=== PATIENT | female | born 1955 | race Caucasian/White ===

== ENCOUNTER 2020-03-20 16:14 | Outpatient (REF) | payer OTHER, SELFPAY ==
[2020-03-20 18:24] LABS: MANUAL DIFF FLAG NO
[2020-03-20 18:26] LABS: Basophils Percent Auto 0.5 % (0-2); Eosinophils Absolute Auto 0.2 X10*3/uL (0.0-0.4); Eosinophils Percent Auto 2.5 % (0-4); Hematocrit 38.8 % (37-47); Hemoglobin 13.1 g/dl (12.0-16.0); Imm Gran Abs Auto 0.01 X10*3/uL (0.00-0.03); Imm Gran Pct Auto 0.2 % (0.0-0.4); Lymphocytes Percent Auto 48.5 % (20-40); Mean Corpuscular HGB Conc 33.8 g/dl (31.0-35.0); Mean Corpuscular Hemoglobin 29.2 pg (27.0-33.0); Mean Corpuscular Volume 86.4 fL (80-98); Mean Platelet Volume 11.2 fL (9.4-12.3); Monocytes Absolute Auto 0.6 X10*3/uL (0.1-1.2); Monocytes Percent Auto 9.3 % (2-11); Neutrophils Absolute Auto 2.4 X10*3/uL (2.0-8.3); Platelet Count 233 X10*3/uL (160-400); Red Blood Count 4.49 X10*6/uL (4.20-5.50); Red Cell Distribution Width 12.6 % (11.0-16.0); White Blood Count 6.1 X10*3/uL (4.8-10.8)
[2020-03-20 18:53] LABS: C Reactive Protein 0.09 mg/dL (< or = 0.50)
[2020-03-20 19:29] LABS: Erythrocyte Sedimentation Rate 22 MM/HR (0-20)
[2020-03-20 19:33] LABS: Alanine Aminotransferase 20 U/L (0-31); Albumin Level 4.5 g/dL (3.5-5.0); Alkaline Phosphatase 73 U/L (39-117); Anion Gap 14 (12-20); Aspartate Amino Transferase 23 U/L (5-31); Bilirubin Total 0.4 mg/dL (0.0-1.0); Blood Urea Nitrogen 11 mg/dL (9-16); Carbon Dioxide 26 mmol/L (22-29); Chloride 102 mmol/L (96-108); Estimated Glomerular Filt Rate > 60; Glucose Random 84 mg/dL (60-115); Potassium 3.7 mmol/l (3.3-5.1); Sodium 138 mmol/L (135-145); Total Protein 8.2 g/dL (6.5-8.0)
== END 2020-03-20 16:15 | disposition home or self-care (01) ==
LOC: HO.LAB 16:14
PROVIDERS: Referring Provider Internal Medicine; Visit Provider Student in an Organized Health Care Education/Training Program
DX: M05.9 Rheumatoid arthritis with rheumatoid factor, unspecified (principal); M47.22 Other spondylosis with radiculopathy, cervical region; K31.89 Other diseases of stomach and duodenum; Z79.899 Other long term (current) drug therapy
CPT/HCPCS: 36415; 80053; 85025; 85652; 86140; 99212

== ENCOUNTER 2020-04-07 18:44 | Outpatient (REF) | payer OTHER, SELFPAY ==
--- NOTE | 2020-04-07 18:47 | MR_ITS ---
EXAMINATION: MRI CERVICAL SPINE WITHOUT CONTRAST CLINICAL INFORMATION: Rheumatoid arthritis. Right upper extremity pain. COMPARISON: Cervical spine MRI 05/08/2014. TECHNIQUE: Multiplanar MR imaging of the cervical spine was performed without contrast. FINDINGS: There is slight anterolisthesis of C7 on T1. There appears to be related to facet degenerative changes at this level. Alignment is otherwise normal. Vertebral heights are preserved. There are type I degenerative endplate changes at C5-C6. Bone marrow signal intensity is otherwise unremarkable. There is loss of intervertebral disc height and T2 signal intensity at multiple levels related to disc degeneration. There is no cord compression or abnormal intramedullary signal changes. The cervicomedullary junction is normal. Limited visualization of intracranial compartment reveals no abnormal finding. Occipital condyles and lateral C1 masses are intact. There is degenerative arthrosis of the atlantodental joint. C1-C2 articular facets are unremarkable. At C2-C3 the annular contour is normal. No canal or neuroforaminal compromise. At C3-C4 there is a slightly bulging disc. No canal stenosis. Asymmetric uncovertebral joint spurring and facet degenerative change causes moderate right neuroforaminal encroachment. At C4-C5 there is a slightly bulging disc. No canal stenosis. Uncovertebral joint spurring and facet degenerative change causes mild bilateral neuroforaminal encroachment. At C5-C6 there is a diffusely bulging disc causing flattening of the ventral thecal sac and buckling of ligamenta flava causing dorsolateral indentation of the thecal sac. Moderate canal stenosis. Uncovertebral joint spurring and facet degenerative change causes moderate right and mild left neuroforaminal encroachment. At C6-C7 is a slightly bulging disc. No canal stenosis. Minimal uncovertebral joint spurring. No neuroforaminal encroachment. At C7-T1 the annular contour is normal. Asymmetric degenerative arthrosis of the left facet joint. No canal stenosis. No neuroforaminal encroachment. Visualized soft tissues of the neck are normal. MR/MR cervical spine wo con IMPRESSION: There is multilevel degenerative spondylosis of the cervical spine. Moderate canal stenosis at C5-C6. Otherwise no canal compromise. No cord compression or abnormal intramedullary signal changes. There are varying degrees of neuroforaminal encroachment related to uncovertebral joint spurring and facet degenerative change as described above.
== END 2020-04-07 18:45 | disposition home or self-care (01) ==
LOC: HO.MRI 18:44
PROVIDERS: Visit Provider Student in an Organized Health Care Education/Training Program
DX: M05.9 Rheumatoid arthritis with rheumatoid factor, unspecified (principal)
CPT/HCPCS: 72141

== ENCOUNTER → 2020-09-18 15:47 | Outpatient (BNVA) | payer MEDICARE, MEDICAID, SELFPAY | PROVIDERS: Visit Provider Student in an Organized Health Care Education/Training Program | DX: M05.9 Rheumatoid arthritis with rheumatoid factor, unspecified (principal); M47.22 Other spondylosis with radiculopathy, cervical region | CPT/HCPCS: 99212 ==

== ENCOUNTER 2020-09-25 09:46 | Outpatient (REF) | payer MEDICARE, MEDICAID, SELFPAY ==
[2020-09-25 12:29] LABS: MANUAL DIFF FLAG NO
[2020-09-25 12:35] LABS: Basophils Percent Auto 0.3 % (0-2); Eosinophils Absolute Auto 0.1 X10*3/uL (0.0-0.4); Eosinophils Percent Auto 2.3 % (0-4); Hematocrit 41.9 % (37-47); Hemoglobin 13.8 g/dl (12.0-16.0); Imm Gran Abs Auto 0.02 X10*3/uL (0.00-0.03); Imm Gran Pct Auto 0.3 % (0.0-0.4); Lymphocytes Absolute Auto 2.7 X10*3/uL (1.2-4.9); Lymphocytes Percent Auto 44.2 % (20-40); Mean Corpuscular HGB Conc 32.9 g/dl (31.0-35.0); Mean Corpuscular Hemoglobin 28.6 pg (27.0-33.0); Mean Corpuscular Volume 86.9 fL (80-98); Mean Platelet Volume 11.4 fL (9.4-12.3); Monocytes Absolute Auto 0.5 X10*3/uL (0.1-1.2); Monocytes Percent Auto 8.3 % (2-11); Neutrophils Absolute Auto 2.8 X10*3/uL (2.0-8.3); Neutrophils Percent Auto 44.6 % (45-73); Platelet Count 248 X10*3/uL (160-400); Red Blood Count 4.82 X10*6/uL (4.20-5.50); Red Cell Distribution Width 12.7 % (11.0-16.0); White Blood Count 6.2 X10*3/uL (4.8-10.8)
[2020-09-25 12:56] LABS: Alanine Aminotransferase 22 U/L (0-31); Albumin Level 4.3 g/dL (3.5-5.0); Alkaline Phosphatase 77 U/L (39-117); Anion Gap 15 (12-20); Aspartate Amino Transferase 21 U/L (5-31); Bilirubin Total 0.6 mg/dL (0.0-1.0); Blood Urea Nitrogen 18 mg/dL (9-16); C Reactive Protein 0.18 mg/dL (< or = 0.50); Calcium 9.8 mg/dL (8.4-10.2); Carbon Dioxide 24 mmol/L (22-29); Chloride 106 mmol/L (96-108); Estimated Glomerular Filt Rate > 60; Glucose Random 88 mg/dL (60-115); Potassium 3.9 mmol/L (3.3-5.1); Sodium 141 mmol/L (135-145); Total Protein 8.1 g/dL (6.5-8.0)
[2020-09-25 13:53] LABS: Erythrocyte Sedimentation Rate 31 MM/HR (0-20)
[2020-09-26 04:28] LABS: HBc Num1 0.07 S/CO (0.00-0.79); HBsAGNum1 0.21 S/CO (0.00-0.99); Hepatitis B Core Antibody Nonreactive (Nonreactive); Hepatitis B Surface Antigen Negative (Negative); ~Hepatitis B Surface Antibody REACTIVE (Nonreactive)
[2020-09-26 04:38] LABS: Hepatitis A Antibody IgM 0.52 Index (0-0.79); ~HepC Num1 0.12 S/CO (0.00-0.79); ~Hepatitis A Antibody IgM Nonreactive (Nonreactive); ~Hepatitis C Antibody Nonreactive (Nonreactive)
[2020-09-27 21:12] LABS: TS Negative Control Passed; TS Panel A 1; TS Panel B 3; TS Positive Control Passed; TSpotTB Negative (SeeBelow)
== END 2020-09-25 09:47 | disposition home or self-care (01) ==
LOC: HO.LAB 09:46
PROVIDERS: Visit Provider Student in an Organized Health Care Education/Training Program
DX: M05.9 Rheumatoid arthritis with rheumatoid factor, unspecified (principal)
CPT/HCPCS: 36415; 80053; 85025; 85652; 86140; 86481; 86704; 86706; 86709; 86803; 87340

== ENCOUNTER 2020-10-13 08:00 | Outpatient (RCR) | payer MEDICARE, MEDICAID, SELFPAY ==
--- NOTE | 2020-10-13 09:13 | MHC.OT.DC ---
[address] [phone] F: [phone] Occupational Therapy Discharge Note Provider: Yasmani Puri Diagnosis: Seropositive Rheumatoid Arthritis. Bilateral hand pain Date of Surgery: Date of Evaluation: 09/25/20 Date of Discharge: Treatments to Date: 6 Cancellations to Date: 0 No Shows to Date: 0 Discharge Status: Improved Function Independent with HEP Patient Elected to Stop Discharge Summary: Pt seen for bilateral hand RA with left thumb CMC jt OA and MCP jt laxity and right ring finger tenosynovitis. Pt is indep in self mangement for jt protection techniques, hand strenthening and use of CMC orthosis and night trigger finger splint for sx management. 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 Pt requesting D/C due to starting PT this week for neck and right shoulder pain Electronically Signed By: Laura Brand OT CHT CLT Reviewed/agree with student documentation: N/A Therapist: Please Sign and return to therapist, thank you for your referral.
== END 2020-10-13 09:14 | disposition other institution (70) ==
LOC: HO.OT 08:00
PROVIDERS: Visit Provider Student in an Organized Health Care Education/Training Program
DX: M05.9 Rheumatoid arthritis with rheumatoid factor, unspecified (principal)
CPT/HCPCS: 29130; 97035; 97110; 97140; 97166; 97535; 97760

== ENCOUNTER → 2020-10-21 08:03 | Outpatient (BNVA) | payer MEDICARE, MEDICAID, SELFPAY | PROVIDERS: Visit Provider Nurse Practitioner Family | DX: M47.812 Spondylosis without myelopathy or radiculopathy, cervical region (principal) | CPT/HCPCS: 99202 ==

== ENCOUNTER 2020-11-19 07:00 | Outpatient (RCR) | payer MEDICARE, MEDICAID, SELFPAY ==
--- NOTE | 2020-10-15 09:38 | MHC.PT.EP ---
[facility] [place] Office [place] Office [place] Office [address] Kaitlin Solomon [address] [phone] F: [phone] F: [phone] F: [phone] F: [phone] Physical Therapy Plan of Care Date of Evaluation: Date of Surgery: NA Diagnosis: CERVICAL SPONDYLOSIS Assessment: Pt IS 65 YO F REFERRED TO PT FROM DR HUMPHREY WITH CERVICAL SPONDYLOSIS. Pt REPORTS NECK PAIN FOR MANY YEARS WITH PT IN THE PAST WITH SOME RELIEF. PRESENTS TO PT WITH FWD HEAD/ROUNDED SHLDERS POSTURE, LIMITED CERV ROM (WITH PAIN AT END RANGE) DECREASED UPPER BODY STRENGTH. OF NOTE, Pt REPORTS HAD AN EPISODE WHERE SHE WAS HOSPITALIZED LAST YEAR WITH SPONTANEOUS MEMORY LOSS (REPORTS MRI/CT BRAIN NEG FOR STROKE) WITH RETURN OF MEMORY (?). Pt REPORTS PAIN IN NECK GIVES HER SIMENTAL AND AT TIMES SHE FEELS LIKE HAS HARD TIME CONCENTRATING. Pt SHOULD BENEFIT FROM PT TO ASSIST WITH MM TIGHTNESS AND UPPER BODY WEAKNESS WHICH SHOULD POSITIVELY AFFECT PAIN LEVEL. Frequency and Duration: The patient will be seen 2X/WK X 4 WKS Short Term Goals: 1. INCREASED POSTURE AWARENESS AND AWARENESS NECK CARE 2. CENTRALIZE SXS (LESS PEC/SHLDER PAIN, LESS SIMENTAL Mapper Goals: 1. DECREASED PAIN AT END RANGE OF CERV ROM 2. DECREASED NECK PAIN AT LEAST 50% WITH ADLS 3. I HEP WITH DC EX PLAN Treatment Plan: Modalities to reduce pain, spasms and effusion. Manual therapy to restore motion and function. Therapeutic exercise to improve strength and flexibility. Neuromuscular re-education for posture and balance. Therapeutic activities to return to functional activities of daily living. Electronically signed by: SADI ALEXANDRE PT Please sign and return to therapist. Thank you for your referral.
--- NOTE | 2020-11-19 08:04 | MHC.PT.DC ---
[facility] [place] Office [place] Office [place] Office [address] Kaitlin Solomon [address] [phone] F: [phone] F: [phone] F: [phone] F: [phone] Physical Therapy Discharge Report Diagnosis: CERVICAL SPONDYLOSIS Date of Surgery: NA Date of Evaluation: 10/15/20 Date of Discharge: Treatments to Date: 7 Cancellations to Date: No Shows to Date: Discharge Status: Discharge Summary: The pt reports no real improvement. She reports inconsistently performing her HEP. She was given a HEP and she showed independence with her HEP. She was issue theraband. She had functional conversational cervical rotation bilaterally at 60 degrees. She had normal cervical flexion and extension. Electronically signed by: Lilly Ramsey PT DPT Please sign and return to therapist. Thank you for your referral.
== END 2020-11-19 08:00 | disposition home or self-care (01) ==
LOC: HO.PT 07:00
PROVIDERS: Visit Provider Student in an Organized Health Care Education/Training Program
DX: M47.22 Other spondylosis with radiculopathy, cervical region (principal)
CPT/HCPCS: 97012; 97110; 97112; 97140; 97161

== ENCOUNTER → 2020-12-19 14:46 | Outpatient (BNVA) | payer MEDICARE, MEDICAID, SELFPAY | PROVIDERS: PCP Internal Medicine; Visit Provider Student in an Organized Health Care Education/Training Program | DX: M05.9 Rheumatoid arthritis with rheumatoid factor, unspecified (principal); M47.22 Other spondylosis with radiculopathy, cervical region | CPT/HCPCS: 99212 ==

== ENCOUNTER → 2021-01-21 08:06 | Outpatient (BNVA) | payer MEDICARE, MEDICAID, SELFPAY | PROVIDERS: PCP Internal Medicine; Visit Provider Nurse Practitioner Family | DX: M47.812 Spondylosis without myelopathy or radiculopathy, cervical region (principal) | CPT/HCPCS: 99212 ==

== ENCOUNTER 2021-03-23 12:33 | Outpatient (REF) | payer MEDICARE, MEDICAID, SELFPAY ==
[2021-03-23 13:56] LABS: MANUAL DIFF FLAG NO
[2021-03-23 14:18] LABS: Basophils Percent Auto 0.3 % (0-2); Eosinophils Absolute Auto 0.1 X10*3/uL (0.0-0.4); Eosinophils Percent Auto 1.7 % (0-4); Hematocrit 39.9 % (37.0-47.0); Hemoglobin 13.4 g/dl (12.0-16.0); Imm Gran Abs Auto 0.02 X10*3/uL (0.00-0.03); Imm Gran Pct Auto 0.3 % (0.0-0.4); Lymphocytes Absolute Auto 2.1 X10*3/uL (1.2-4.9); Lymphocytes Percent Auto 33.5 % (20-40); Mean Corpuscular HGB Conc 33.6 g/dl (31.0-35.0); Mean Corpuscular Hemoglobin 28.9 pg (27.0-33.0); Mean Corpuscular Volume 86.2 fL (80.0-98.0); Mean Platelet Volume 11.1 fL (9.4-12.3); Monocytes Absolute Auto 0.6 X10*3/uL (0.1-1.2); Monocytes Percent Auto 9.3 % (2-11); Neutrophils Absolute Auto 3.47 x10*3/uL (2.0-8.3); Neutrophils Percent Auto 54.9 % (45-73); Platelet Count 211 X10*3/uL (160-400); Red Blood Count 4.63 X10*6/uL (4.20-5.50); Red Cell Distribution Width 13.1 % (11.0-16.0); White Blood Count 6.3 X10*3/uL (4.8-10.8)
[2021-03-23 14:51] LABS: Alanine Aminotransferase 29 U/L (0-31); Albumin Level 4.2 g/dL (3.5-5.0); Alkaline Phosphatase 68 U/L (39-117); Anion Gap 11 (12-20); Aspartate Amino Transferase 28 U/L (5-31); Bilirubin Total 0.5 mg/dL (0.0-1.0); Blood Urea Nitrogen 15 mg/dL (9-16); C Reactive Protein 0.15 mg/dL (< or = 0.50); Calcium 9.4 mg/dL (8.4-10.2); Carbon Dioxide 27 mmol/L (22-29); Chloride 106 mmol/L (96-108); Estimated Glomerular Filt Rate > 60; Glucose Random 80 mg/dL (60-115); Potassium 3.9 mmol/L (3.3-5.1); Sodium 140 mmol/L (135-145); Total Protein 7.6 g/dL (6.5-8.0)
[2021-03-23 14:57] LABS: Erythrocyte Sedimentation Rate 20 MM/HR (0-20)
== END 2021-03-23 12:34 | disposition home or self-care (01) ==
LOC: HO.LAB 12:33
PROVIDERS: Absent Provider Student in an Organized Health Care Education/Training Program; PCP Internal Medicine; Visit Provider Nurse Practitioner Family
DX: M05.9 Rheumatoid arthritis with rheumatoid factor, unspecified (principal); M47.22 Other spondylosis with radiculopathy, cervical region
CPT/HCPCS: 36415; 80053; 85025; 85652; 86140; 99212

== ENCOUNTER 2021-07-23 14:43 | Outpatient (REF) | payer MEDICARE, MEDICAID, SELFPAY ==
[2021-07-23 14:48] LABS: MANUAL DIFF FLAG NO
[2021-07-23 15:16] LABS: Basophils Percent Auto 0.4 % (0-2); Eosinophils Absolute Auto 0.1 X10*3/uL (0.0-0.4); Eosinophils Percent Auto 1.5 % (0-4); Hematocrit 44.5 % (37.0-47.0); Hemoglobin 14.9 g/dl (12.0-16.0); Imm Gran Abs Auto 0.01 X10*3/uL (0.00-0.03); Imm Gran Pct Auto 0.1 % (0.0-0.4); Lymphocytes Absolute Auto 2.8 X10*3/uL (1.2-4.9); Mean Corpuscular HGB Conc 33.5 g/dl (31.0-35.0); Mean Corpuscular Hemoglobin 28.9 pg (27.0-33.0); Mean Corpuscular Volume 86.2 fL (80.0-98.0); Mean Platelet Volume 10.8 fL (9.4-12.3); Monocytes Absolute Auto 0.6 X10*3/uL (0.1-1.2); Monocytes Percent Auto 8.8 % (2-11); Neutrophils Absolute Auto 3.6 x10*3/uL (2.0-8.3); Neutrophils Percent Auto 50.2 % (45-73); Platelet Count 257 X10*3/uL (160-400); Red Blood Count 5.16 X10*6/uL (4.20-5.50); Red Cell Distribution Width 12.8 % (11.0-16.0); White Blood Count 7.2 X10*3/uL (4.8-10.8)
[2021-07-23 15:37] LABS: Alanine Aminotransferase 20 U/L (0-31); Albumin Level 4.4 g/dL (3.5-5.0); Alkaline Phosphatase 78 U/L (39-117); Anion Gap 13 (12-20); Aspartate Amino Transferase 25 U/L (5-31); Bilirubin Total 0.8 mg/dL (0.0-1.0); Blood Urea Nitrogen 11 mg/dL (9-16); C Reactive Protein 0.17 mg/dL (< or = 0.50); Calcium 9.9 mg/dL (8.4-10.2); Carbon Dioxide 24 mmol/L (22-29); Chloride 104 mmol/L (96-108); Estimated Glomerular Filt Rate 60; Glucose Random 92 mg/dL (60-115); Potassium 4.1 mmol/L (3.3-5.1); Sodium 137 mmol/L (135-145); Total Protein 8.5 g/dL (6.5-8.0)
[2021-07-23 15:58] LABS: Erythrocyte Sedimentation Rate 21 MM/HR (0-20)
== END 2021-07-23 14:44 | disposition home or self-care (01) ==
LOC: HO.LAB 14:43
PROVIDERS: Visit Provider Nurse Practitioner Family
DX: M05.9 Rheumatoid arthritis with rheumatoid factor, unspecified (principal)
CPT/HCPCS: 36415; 80053; 85025; 85652; 86140

== ENCOUNTER → 2021-07-24 10:01 | Outpatient (BNVA) | payer MEDICARE, MEDICAID, SELFPAY | PROVIDERS: PCP Internal Medicine; Visit Provider Nurse Practitioner Family | DX: M05.9 Rheumatoid arthritis with rheumatoid factor, unspecified (principal); M47.22 Other spondylosis with radiculopathy, cervical region | CPT/HCPCS: 99212 ==

== ENCOUNTER 2021-10-26 10:00 | Outpatient (REF) | payer MEDICARE, MEDICAID, SELFPAY ==
--- NOTE | ~2021-10-26 | XR_ITS ---
EXAMINATION: XR SHOULDER, RIGHT CLINICAL INFORMATION: Right shoulder pain COMPARISON: None TECHNIQUE: AP external rotation, Grashey, scapular Y, and axillary views of the right shoulder. FINDINGS: The bones and soft tissues are normal. No fracture. Glenohumeral and acromioclavicular alignment is anatomic with normal joint space. No abnormal soft tissue calcifications. XR/XR shoulder RT min 2V IMPRESSION: No acute processes
[2021-10-26 12:13] LABS: MANUAL DIFF FLAG NO
[2021-10-26 13:05] LABS: Basophils Percent Auto 0.5 % (0-2); Eosinophils Absolute Auto 0.1 X10*3/uL (0.0-0.4); Eosinophils Percent Auto 1.8 % (0-4); Hematocrit 42.3 % (37.0-47.0); Hemoglobin 13.9 g/dl (12.0-16.0); Imm Gran Abs Auto 0.01 X10*3/uL (0.00-0.03); Imm Gran Pct Auto 0.2 % (0.0-0.4); Lymphocytes Absolute Auto 2.2 X10*3/uL (1.2-4.9); Lymphocytes Percent Auto 35.4 % (20-40); Mean Corpuscular HGB Conc 32.9 g/dl (31.0-35.0); Mean Corpuscular Hemoglobin 28.2 pg (27.0-33.0); Mean Corpuscular Volume 85.8 fL (80.0-98.0); Mean Platelet Volume 11.1 fL (9.4-12.3); Monocytes Absolute Auto 0.5 X10*3/uL (0.1-1.2); Monocytes Percent Auto 8.1 % (2-11); Neutrophils Absolute Auto 3.4 x10*3/uL (2.0-8.3); Platelet Count 195 X10*3/uL (160-400); Red Blood Count 4.93 X10*6/uL (4.20-5.50); Red Cell Distribution Width 13.4 % (11.0-16.0); White Blood Count 6.2 X10*3/uL (4.8-10.8)
[2021-10-26 13:46] LABS: Alanine Aminotransferase 22 U/L (0-31); Albumin Level 4.2 g/dL (3.5-5.0); Alkaline Phosphatase 67 U/L (39-117); Anion Gap 14 (12-20); Aspartate Amino Transferase 24 U/L (5-31); Bilirubin Total 0.5 mg/dL (0.0-1.0); Blood Urea Nitrogen 16 mg/dL (9-16); C Reactive Protein 0.11 mg/dL (< or = 0.50); Calcium 9.6 mg/dL (8.4-10.2); Carbon Dioxide 21 mmol/L (22-29); Chloride 105 mmol/L (96-108); Estimated Glomerular Filt Rate > 60; Glucose Random 132 mg/dL (60-115); Potassium 4.1 mmol/L (3.3-5.1); Sodium 136 mmol/L (135-145); Total Protein 8.2 g/dL (6.5-8.0)
[2021-10-26 13:57] LABS: Erythrocyte Sedimentation Rate 19 MM/HR (0-20)
[2021-10-27 08:35] LABS: Lyme Abs Screen <0.90 index
== END 2021-10-26 10:01 | disposition home or self-care (01) ==
LOC: HO.LAB 10:00
PROVIDERS: PCP Internal Medicine; Visit Provider Nurse Practitioner Family
DX: M05.9 Rheumatoid arthritis with rheumatoid factor, unspecified (principal); M25.511 Pain in right shoulder; S80.862A Insect bite (nonvenomous), left lower leg, initial encounter; M47.22 Other spondylosis with radiculopathy, cervical region; W57.XXXA Bitten or stung by nonvenomous insect and other nonvenomous arthropods, initial encounter; Z79.899 Other long term (current) drug therapy
CPT/HCPCS: 36415; 73030; 80053; 85025; 85652; 86140; 86617; 86618; 99212

== ENCOUNTER 2021-12-28 08:00 | Outpatient (RCR) | payer MEDICARE, MEDICAID, SELFPAY ==
[2021-11-11 08:02] VITALS: BP 143/82; PULSE 73
--- NOTE | 2021-11-11 09:11 | MHC.PT.EP ---
[facility] [place] Office [place] Office [place] Office [address] aKitlin Solomon [address] [phone] F: [phone] F: [phone] F: [phone] F: [phone] Physical Therapy Plan of Care Date of Evaluation: Date of Surgery: Diagnosis: pain in R shoulder Assessment: 66 y/o LHD female referred to PT with R shoulder pain. She has R shoulder for 2-3 months of insidious onset resulting in pain and difficulty with reaching overhead, grooming, reaching behind back and abducting arm, sleeping, and carrying grocery bags. PMH significant for RA, Sjogrens, HTN. Examination shows decreased shoulder A/PROM, decreased R shoulder strength (especially abduction, flexion, ER, biceps), increased pain, and impaired postural awareness. S/s consistent with impingement R shoulder (?RTC strain). Recommend PT 2x/week for 8 weeks to address impairments, implement HEP, and optimize functional mobility. Frequency and Duration: The patient will be seen 2x/week for 8 weeks Short Term Goals: 4 weeks 1. I with HEP 2. Improve R shoulder flexion in supine to 140 with pain < 3/10 3. 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 I with HEP and self management of sx 2. Improve R shoulder flexion strength to 4/5 to faciliate reaching overhead 3. Improve R shoulder ER strength to 4/5 to faciliate carrying grocery bags 4. Decrease pain levels by >50% self report (IR: most pain 9./10) Treatment Plan: Modalities to reduce pain, spasms and effusion. Manual therapy to restore motion and function. Therapeutic exercise to improve strength and flexibility. Neuromuscular re-education for posture and balance. Therapeutic activities to return to functional activities of daily living. Electronically signed by: Nadja Hercules PT DPT Please sign and return to therapist. Thank you for your referral.
--- NOTE | 2021-12-29 14:20 | MHC.PT.DC ---
[facility] [place] Office [place] Office [place] Office [address] Solomon [address] [phone] F: [phone] F: [phone] F: [phone] F: [phone] Physical Therapy Discharge Report Diagnosis: pain in R shoulder Date of Surgery: Date of Evaluation: 11/11/21 Date of Discharge: 12/29/21 Treatments to Date: 11 Cancellations to Date: 0 No Shows to Date: 0 Discharge Status: Discharge Summary: Pt reports ready for d/c. She continues to have pain in shoulder but not as severe. She has met her STG and is I with HEP. No further questions at this time and d/c to I HEP. Electronically signed by: Nadja Hercules PT Please sign and return to therapist. Thank you for your referral.
== END 2021-12-29 14:20 | disposition home or self-care (01) ==
LOC: HO.PT 08:00
PROVIDERS: PCP Internal Medicine; Visit Provider Nurse Practitioner Family
DX: M25.511 Pain in right shoulder (principal)
CPT/HCPCS: 97110; 97140; 97161

== ENCOUNTER 2022-01-26 13:34 | Outpatient (REF) | payer MEDICARE, MEDICAID, SELFPAY ==
[2022-01-26 14:21] LABS: MANUAL DIFF FLAG NO
[2022-01-26 14:43] LABS: Basophils Percent Auto 0.3 % (0-2); Eosinophils Absolute Auto 0.1 X10*3/uL (0.0-0.4); Eosinophils Percent Auto 1.5 % (0-4); Hematocrit 44.6 % (37.0-47.0); Hemoglobin 14.7 g/dl (12.0-16.0); Imm Gran Abs Auto 0.01 X10*3/uL (0.00-0.03); Imm Gran Pct Auto 0.2 % (0.0-0.4); Lymphocytes Absolute Auto 2.9 X10*3/uL (1.2-4.9); Mean Corpuscular Hemoglobin 28.5 pg (27.0-33.0); Mean Corpuscular Volume 86.4 fL (80.0-98.0); Mean Platelet Volume 11.2 fL (9.4-12.3); Monocytes Absolute Auto 0.6 X10*3/uL (0.1-1.2); Monocytes Percent Auto 9.4 % (2-11); Neutrophils Absolute Auto 2.5 x10*3/uL (2.0-8.3); Neutrophils Percent Auto 41.6 % (45-73); Platelet Count 160 X10*3/uL (160-400); Red Blood Count 5.16 X10*6/uL (4.20-5.50); Red Cell Distribution Width 13.6 % (11.0-16.0); White Blood Count 6.1 X10*3/uL (4.8-10.8)
[2022-01-26 15:18] LABS: Alanine Aminotransferase 23 U/L (0-31); Aspartate Amino Transferase 29 U/L (5-31); C Reactive Protein 0.18 mg/dL (< or = 0.50); Estimated Glomerular Filt Rate > 60
== END 2022-01-26 13:35 | disposition home or self-care (01) ==
LOC: HO.LAB 13:34
PROVIDERS: Visit Provider Nurse Practitioner Family
DX: M05.9 Rheumatoid arthritis with rheumatoid factor, unspecified (principal); L98.9 Disorder of the skin and subcutaneous tissue, unspecified; M25.511 Pain in right shoulder; M47.22 Other spondylosis with radiculopathy, cervical region; T14.8XXA Other injury of unspecified body region, initial encounter; W57.XXXA Bitten or stung by nonvenomous insect and other nonvenomous arthropods, initial encounter; Y92.9 Unspecified place or not applicable; Y99.9 Unspecified external cause status; Z79.899 Other long term (current) drug therapy
CPT/HCPCS: 36415; 82565; 84450; 84460; 85025; 85652; 86140; 99212

== ENCOUNTER 2022-01-29 11:13 | Outpatient (REF) | payer MEDICARE, MEDICAID, SELFPAY ==
[2022-01-29 14:01] LABS: Erythrocyte Sedimentation Rate 23 MM/HR (0-20)
== END 2022-01-29 11:14 | disposition home or self-care (01) ==
LOC: HO.LAB 11:13
PROVIDERS: Visit Provider Nurse Practitioner Family
DX: M05.9 Rheumatoid arthritis with rheumatoid factor, unspecified (principal)
CPT/HCPCS: 36415; 85652

== ENCOUNTER → 2022-04-27 11:48 | Outpatient (BNVA) | payer MEDICARE, MEDICAID, SELFPAY | PROVIDERS: PCP Internal Medicine; Visit Provider Nurse Practitioner Family | DX: M05.9 Rheumatoid arthritis with rheumatoid factor, unspecified (principal) | CPT/HCPCS: 99212 ==

== ENCOUNTER 2022-08-24 10:23 | Outpatient (REF) | payer OTHER, SELFPAY ==
[2022-08-24 10:43] LABS: MANUAL DIFF FLAG NO
[2022-08-24 11:49] LABS: Basophils Percent Auto 0.4 % (0-2); Eosinophils Absolute Auto 0.1 X10*3/uL (0.0-0.4); Eosinophils Percent Auto 2.3 % (0-4); Hematocrit 41.8 % (37.0-47.0); Hemoglobin 13.8 g/dl (12.0-16.0); Imm Gran Abs Auto 0.01 X10*3/uL (0.00-0.03); Imm Gran Pct Auto 0.2 % (0.0-0.4); Lymphocytes Absolute Auto 2.6 X10*3/uL (1.2-4.9); Lymphocytes Percent Auto 49.4 % (20-40); Mean Corpuscular Hemoglobin 29.3 pg (27.0-33.0); Mean Corpuscular Volume 88.7 fL (80.0-98.0); Mean Platelet Volume 12.1 fL (9.4-12.3); Monocytes Absolute Auto 0.5 X10*3/uL (0.1-1.2); Monocytes Percent Auto 9.4 % (2-11); Neutrophils Percent Auto 38.3 % (45-73); Platelet Count 188 X10*3/uL (160-400); Red Blood Count 4.71 X10*6/uL (4.20-5.50); Red Cell Distribution Width 13.2 % (11.0-16.0); White Blood Count 5.3 X10*3/uL (4.8-10.8)
[2022-08-24 12:06] LABS: Alanine Aminotransferase 35 U/L (0-31); Aspartate Amino Transferase 30 U/L (5-31); C Reactive Protein 0.12 mg/dL (< or = 0.50); Estimated Glomerular Filt Rate > 60
[2022-08-24 12:32] LABS: Erythrocyte Sedimentation Rate 29 MM/HR (0-20)
== END 2022-08-24 10:24 | disposition home or self-care (01) ==
LOC: HO.LAB 10:23
PROVIDERS: PCP Physician Assistant Medical; Visit Provider Nurse Practitioner Family
DX: M05.9 Rheumatoid arthritis with rheumatoid factor, unspecified (principal); Z79.899 Other long term (current) drug therapy
CPT/HCPCS: 36415; 82565; 84450; 84460; 85025; 85652; 86140

== ENCOUNTER → 2022-08-27 10:55 | Outpatient (BNVA) | payer OTHER, SELFPAY | PROVIDERS: PCP Physician Assistant Medical; Visit Provider Nurse Practitioner Family | DX: M05.9 Rheumatoid arthritis with rheumatoid factor, unspecified (principal); R79.89 Other specified abnormal findings of blood chemistry; Z79.899 Other long term (current) drug therapy | CPT/HCPCS: 99212 ==

== ENCOUNTER 2022-09-14 10:10 | Outpatient (REF) | payer OTHER, SELFPAY ==
[2022-09-14 11:13] LABS: Alanine Aminotransferase 25 U/L (0-31)
== END 2022-09-14 10:11 | disposition home or self-care (01) ==
LOC: HO.LAB 10:10
PROVIDERS: PCP Physician Assistant Medical; Visit Provider Nurse Practitioner Family
DX: R74.8 Abnormal levels of other serum enzymes (principal)
CPT/HCPCS: 36415; 84460

== ENCOUNTER 2023-01-01 08:53 | Outpatient (REF) | payer OTHER, SELFPAY ==
[2023-01-01 09:20] LABS: Basophils Percent Auto 0.4 % (0-2); Eosinophils Absolute Auto 0.1 X10*3/uL (0.0-0.4); Eosinophils Percent Auto 2.3 % (0-4); Hematocrit 43.9 % (37.0-47.0); Hemoglobin 14.4 g/dl (12.0-16.0); Imm Gran Abs Auto 0.01 X10*3/uL (0.00-0.03); Imm Gran Pct Auto 0.2 % (0.0-0.4); Lymphocytes Absolute Auto 2.1 X10*3/uL (1.2-4.9); Lymphocytes Percent Auto 43.4 % (20-40); MANUAL DIFF FLAG SCAN; Mean Corpuscular HGB Conc 32.8 g/dl (31.0-35.0); Mean Corpuscular Hemoglobin 28.1 pg (27.0-33.0); Mean Corpuscular Volume 85.7 fL (80.0-98.0); Mean Platelet Volume 11.3 fL (9.4-12.3); Monocytes Absolute Auto 0.4 X10*3/uL (0.1-1.2); Monocytes Percent Auto 9.2 % (2-11); Neutrophils Absolute Auto 2.1 x10*3/uL (2.0-8.3); Neutrophils Percent Auto 44.5 % (45-73); PLT CLUMP 1; Red Blood Count 5.12 X10*6/uL (4.20-5.50); Red Cell Distribution Width 12.8 % (11.0-16.0); SCAN SMEAR FLAG 1
[2023-01-01 09:47] LABS: Platelet Count 164 X10*3/uL (160-400); White Blood Count 4.8 X10*3/uL (4.8-10.8)
[2023-01-01 09:48] LABS: SLIDE REVIEW VERIFIED
[2023-01-01 10:12] LABS: Erythrocyte Sedimentation Rate 23 MM/HR (0-20)
[2023-01-01 10:16] LABS: Alanine Aminotransferase 17 U/L (0-31); Aspartate Amino Transferase 23 U/L (5-31); C Reactive Protein 0.32 mg/dL (< or = 0.50); Estimated Glomerular Filt Rate > 60
== END 2023-01-01 08:54 | disposition home or self-care (01) ==
LOC: HO.LAB 08:53
PROVIDERS: PCP Physician Assistant Medical; Visit Provider Nurse Practitioner Family
DX: M05.9 Rheumatoid arthritis with rheumatoid factor, unspecified (principal); Z79.899 Other long term (current) drug therapy
CPT/HCPCS: 36415; 82565; 84450; 84460; 85025; 85652; 86140

== ENCOUNTER 2023-01-04 10:41 | Outpatient (AMB) | payer OTHER, SELFPAY ==
--- NOTE | 2023-01-04 10:43 | A.OFFVIS_ITS ---
Intake Vital Signs 01/04/23 10:45 Height 4 ft 11 in Weight 148 lb 12.992 oz BMI 30.1 BP 116/78 Blood Pressure Location Rt brachial Position Sitting Pulse 67 Pulse Source Pulse Oximeter Pulse Oximetry (%) 98 Oxygen Delivery Method Room Air Intake Visit Reasons: seropositive rheumatoid arthritis Intake Note: Patient presents for rheaumatoid arthritis Allergies Humira Pen Allergy (Intermediate, Uncoded 01/04/23 10:48) rash Medication List - Last Reconciled 01/04/23 by Reed Vazquez MD acetaminophen ER (Tylenol Arthritis Pain) 650 mg PO Q12H PRN candesartan-hydrochlorothiazid 32-12.5 mg tabs PO DAILY etanercept (Enbrel SureClick) 50 mg subcut .10D lidocaine 5% 1 patch topical DAILY PRN HPI HPI Comments History of Present Illness Details 67yoF presents for follow-up of seropositive RA (RF+ CCP++). Last seen in by Viviana Joseph 09/12 Taking Enbrel and is tolerating it well. Patient states that her joint pain is stable, she denies any stiffness or swelling. Gets intermittent pain at the base of her left thumb. [facility] Medical History Bilateral inguinal hernia Cervical spondylosis with radiculopathy Chronic constipation GERD (gastroesophageal reflux disease) Glaucoma Hyperlipidemia Hyperthyroidism Kidney stones Osteoarthritis Overlap syndrome Seropositive rheumatoid arthritis Seropositive rheumatoid arthritis Sjogrens syndrome Surgical History Hx of hernia repair Hx of tooth extraction Family History Father Intracranial aneurysm CVD (cardiovascular disease) Mother Liver cancer HTN (hypertension) Social History Household Members: None Housing: Apartment Alcohol intake: never Patient Tobacco Use Status: Never used Tobacco Review of Systems [facility] Reports arthralgias Physical Exam Vital Signs: Last Vital Signs Pulse 67 01/04/23 10:45 BP 116/78 01/04/23 10:45 Pulse Ox 98 01/04/23 10:45 Oxygen Delivery Method Room Air 01/04/23 10:45 BMI result Body Mass Index 30.1 Const General: cooperative, healthy appearing and comfortable Nutritional Appearance: overweight Orientation/consciousness: patient oriented x3 Limitations: no limitations HEENT Head: Yes normocephalic and Yes atraumatic Mouth: moist mucous membranes Resp Effort & Inspection: normal respiratory effort and able to speak in complete sentences Auscultation: clear to auscultation bilaterally Cardio Rate: regular rate Rhythm: regular rhythm Neuro General: patient oriented x3 Extrem Other: No active synovitis Left 1st CMC tenderness Osteoarthritic changes of both hands with prominent Heberden's nodes especially left hand Normal range of motion of both shoulders and elbows with no pain Negative rotator cuff provocative maneuvers bilaterally Assessment & Plan Assessment & Plan (1) Seropositive rheumatoid arthritis: Comment: +RF++CCP Humira-caused rash Enbrel - 2013 - present was on MTX & HCQ in the past Code(s): M05.9 - Rheumatoid arthritis with rheumatoid factor, unspecified Plan: Seropositive RA (RF+ CCP++). On Enbrel, her rheumatoid arthritis appears well controlled. No synovitis or joint pain on exam. (2) Elevated liver function tests: Code(s): R79.89 - Other specified abnormal findings of blood chemistry Plan: ALT was slightly elevated. Resolved on repeat (3) SS-A antibody positive: Code(s): R76.8 - Other specified abnormal immunological findings in serum Plan: Reviewed old labs showing positive SSA & SSB in high titers. There are no sicca symptoms upon evaluation today. Will recheck serologies Plan I spent 30 minutes reviewing patient's chart, evaluating patient, ordering diagnostic workup, counseling patient and documenting in the chart Orders: Orders Comprehensive Met. Panel 4 Months M05.9 - Rheumatoid arthritis with rheumatoid factor, unspecified C Reactive Protein 4 Months M05.9 - Rheumatoid arthritis with rheumatoid factor, unspecified Complete Blood Count Auto Diff 4 Months M05.9 - Rheumatoid arthritis with rheumatoid factor, unspecified Erythrocyte Sedimentation Rate 4 Months M05.9 - Rheumatoid arthritis with rheumatoid factor, unspecified Hepatitis A,B,C Profile 4 Months Z11.59 - Encounter for screening for other viral diseases T Spot TB 4 Months Z11.7 - Encounter for testing for latent tuberculosis infection UMANG Reflex Titer and Pattern 4 Months M35.05 - Sjogren syndrome with inflammatory arthritis, R76.8 - Other specified abnormal immunological findings in serum Anti Extractable Nuclear Ag 4 Months M35.05 - Sjogren syndrome with inflammatory arthritis, R76.8 - Other specified abnormal immunological findings in serum Anti DNA DS Antibody 4 Months M35.05 - Sjogren syndrome with inflammatory arthritis, R76.8 - Other specified abnormal immunological findings in serum Complement C3 4 Months M35.05 - Sjogren syndrome with inflammatory arthritis, R76.8 - Other specified abnormal immunological findings in serum Complement C4 4 Months M35.05 - Sjogren syndrome with inflammatory arthritis, R76.8 - Other specified abnormal immunological findings in serum Protein Creatinine Ratio, Ur 4 Months M35.05 - Sjogren syndrome with inflammatory arthritis, R76.8 - Other specified abnormal immunological findings in serum Sjogren's Antibodies 4 Months M35.05 - Sjogren syndrome with inflammatory arthritis, R76.8 - Other specified abnormal immunological findings in serum Protein Electrophoresis, Serum 4 Months M35.05 - Sjogren syndrome with inflammatory arthritis, R76.8 - Other specified abnormal immunological findings in serum UA w Microscopic 4 Months M35.05 - Sjogren syndrome with inflammatory arthritis, R76.8 - Other specified abnormal immunological findings in serum Immunofixation Pnl, Serum 4 Months M35.05 - Sjogren syndrome with inflammatory arthritis, R76.8 - Other specified abnormal immunological findings in serum Coding Level of Care Code Est Pt Level 4 (11695) Diagnoses Seropositive rheumatoid arthritis M05.9 Elevated liver function tests R79.89 SS-A antibody positive R76.8
[2023-01-04 10:45] VITALS: BP 116/78; PULSE 67; O2SAT 98; BMI 30.1
== END 2023-01-04 11:09 | disposition home or self-care (01) ==
PROVIDERS: PCP Physician Assistant Medical; Visit Provider Student in an Organized Health Care Education/Training Program
DX: M05.89 Other rheumatoid arthritis with rheumatoid factor of multiple sites (principal); R79.89 Other specified abnormal findings of blood chemistry; R76.8 Other specified abnormal immunological findings in serum
CPT/HCPCS: 99214

== ENCOUNTER → 2023-01-04 10:41 | Outpatient (BNVA) | payer OTHER, SELFPAY | PROVIDERS: PCP Physician Assistant Medical; Visit Provider Student in an Organized Health Care Education/Training Program | DX: M05.9 Rheumatoid arthritis with rheumatoid factor, unspecified (principal); R79.89 Other specified abnormal findings of blood chemistry; R76.8 Other specified abnormal immunological findings in serum; Z79.899 Other long term (current) drug therapy | CPT/HCPCS: 99212 ==

== ENCOUNTER 2023-05-05 11:57 | Outpatient (REF) | payer OTHER, SELFPAY ==
[2023-05-05 14:06] LABS: Hemoglobin 13.1 g/dl (12.0-16.0); Imm Gran Abs Auto 0.01 X10*3/uL (0.00-0.03); Imm Gran Pct Auto 0.2 % (0.0-0.4); MANUAL DIFF FLAG SCAN; PLT CLUMP 1; SCAN SMEAR FLAG 1
[2023-05-05 14:08] LABS: Basophils Percent Auto 0.6 % (0-2); Eosinophils Absolute Auto 0.1 X10*3/uL (0.0-0.4); Eosinophils Percent Auto 1.5 % (0-4); Hematocrit 39.3 % (37.0-47.0); Lymphocytes Absolute Auto 1.8 X10*3/uL (1.2-4.9); Lymphocytes Percent Auto 38.9 % (20-40); Mean Corpuscular HGB Conc 33.3 g/dl (31.0-35.0); Mean Corpuscular Hemoglobin 28.4 pg (27.0-33.0); Mean Corpuscular Volume 85.1 fL (80.0-98.0); Mean Platelet Volume 12.5 fL (9.4-12.3); Monocytes Absolute Auto 0.4 X10*3/uL (0.1-1.2); Monocytes Percent Auto 8.2 % (2-11); Neutrophils Absolute Auto 2.3 x10*3/uL (2.0-8.3); Neutrophils Percent Auto 50.6 % (45-73); Red Blood Count 4.62 X10*6/uL (4.20-5.50); Red Cell Distribution Width 13.9 % (11.0-16.0)
[2023-05-05 14:09] LABS: White Blood Count 4.6 X10*3/uL (4.8-10.8)
[2023-05-05 14:28] LABS: Platelet Count 182 X10*3/uL (160-400)
[2023-05-05 14:29] LABS: Alanine Aminotransferase 20 U/L (0-31); Albumin Level 4.3 g/dL (3.5-5.0); Alkaline Phosphatase 60 U/L (39-117); Anion Gap 12 (12-20); Aspartate Amino Transferase 27 U/L (5-31); Bilirubin Total 0.5 mg/dL (0.0-1.0); Blood Urea Nitrogen 12 mg/dL (9-16); C Reactive Protein 0.33 mg/dL (< or = 0.50); Calcium 9.8 mg/dL (8.4-10.2); Carbon Dioxide 28 mmol/L (22-29); Chloride 103 mmol/L (96-108); Estimated Glomerular Filt Rate > 60; Glucose Random 86 mg/dL (60-115); Potassium 3.7 mmol/L (3.3-5.1); SLIDE REVIEW VERIFIED; Sodium 139 mmol/L (135-145); Total Protein 8.6 g/dL (6.5-8.0)
[2023-05-05 14:54] LABS: Erythrocyte Sedimentation Rate 34 MM/HR (0-20)
[2023-05-05 15:19] LABS: Appearance Urine Clear; Color Urine Yellow; Glucose Urine UA Negative (Negative); Leukocyte Esterase Urine Negative (Negative); Nitrite Urine Negative (Negative); PH 6.5 (5.0-9.0); Specific Gravity - Urine <= 1.005 (1.005-1.025); Urine Blood Negative (Negative); Urine Ketones Negative (Negative); Urine Protein Negative (Neg-Trace)
[2023-05-05 15:22] LABS: Bacteria Urine None Seen (None Seen); Hyaline Casts Urine 0-2 /LPF (0-2); RBC Urine 0-2 /HPF (0-2); Squamous Epithelial Cell Urine 0-2 /HPF (0-2); WBC Urine 0-5 /HPF (0-5)
[2023-05-05 16:40] LABS: Creatinine Urine 43.85 mg/dL; Total Protein Urine Random < 7 mg/dL (<12)
[2023-05-06 07:30] LABS: HBS Num1 385.93 mIU/mL (0-7.99); HBc Num1 0.11 S/CO (0.00-0.79); HBsAGNum1 0.29 S/CO (0.00-0.99); Hepatitis A Antibody IgM 0.42 Index (0-0.79); Hepatitis B Core Antibody Nonreactive (Nonreactive); Hepatitis B Surface Antigen Negative (Negative); ~HepC Num1 0.17 S/CO (0.00-0.79); ~Hepatitis A Antibody IgM Nonreactive (Nonreactive); ~Hepatitis B Surface Antibody REACTIVE (Nonreactive); ~Hepatitis C Antibody Nonreactive (Nonreactive)
[2023-05-07 22:09] LABS: TS Negative Control Passed; TS Panel A 0; TS Panel B 0; TS Positive Control Passed; TSpotTB Negative (Negative)
[2023-05-09 12:24] LABS: Complement C3 114 mg/dL (83-193)
[2023-05-09 21:28] LABS: Anti DNA DS Antibody 3 IU/mL; Antibody to SS-A Antigen >8.0 POS AI (<1.0 NEG); Antibody to SS-B Antigen >8.0 POS AI (<1.0 NEG); SM/Ribonucleoprotein Ab <1.0 NEG AI (<1.0 NEG); Smith Protein <1.0 NEG AI (<1.0 NEG)
[2023-05-09 21:43] LABS: Prot Elec - Albumin 4.6 g/dL (3.8-4.8); Prot Elec - Alpha1 0.3 g/dL (0.2-0.3); Prot Elec - Alpha2 0.7 g/dL (0.5-0.9); Prot Elec - Beta 1 0.5 g/dL (0.4-0.6); Prot Elec - Beta 2 0.5 g/dL (0.2-0.5); Prot Elec - Gamma 1.8 g/dL (0.8-1.7); Prot Elec - Total Protein 8.3 g/dL (6.1-8.1)
[2023-05-10 15:32] LABS: Anti Nuclear Antibody Screen POSITIVE (NEGATIVE)
[2023-05-10 18:22] LABS: IgA 608 mg/dL (70-320); IgG 2070 mg/dL (600-1540); IgM 143 mg/dL (50-300)
== END 2023-05-05 11:58 | disposition home or self-care (01) ==
LOC: HO.LAB 11:57
PROVIDERS: Visit Provider Student in an Organized Health Care Education/Training Program
DX: Z11.59 Encounter for screening for other viral diseases (principal); Z11.7 Encounter for testing for latent tuberculosis infection; R76.8 Other specified abnormal immunological findings in serum; M35.05 Sjogren syndrome with inflammatory arthritis; M05.9 Rheumatoid arthritis with rheumatoid factor, unspecified; Z72.89 Other problems related to lifestyle
CPT/HCPCS: 36415; 80053; 81001; 82570; 82784; 84156; 84165; 85025; 85652; 86038; 86039; 86140; 86160; 86225; 86235; 86334; 86481; 86704; 86706; 86709; 86803; 87340

== ENCOUNTER 2023-05-09 12:54 | Outpatient (AMB) | payer OTHER, SELFPAY ==
[2023-05-09 12:57] VITALS: BP 148/98; PULSE 77; BMI 30.1
--- NOTE | 2023-05-09 12:57 | MHC.OFFVIS ---
Intake Vital Signs 05/09/23 12:57 Height 4 ft 11 in Weight 148 lb 12.992 oz BMI 30.1 BP 148/98 H Blood Pressure Location Rt brachial Position Sitting Pulse 77 Pulse Source Pulse Oximeter Intake Visit Reasons: RA Intake Note: Pt last seen 01/04/23, presents today for follow up and test results. 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 Accompanied by: Self / Same As Patient Allergies Humira Pen Allergy (Intermediate, Uncoded 05/09/23 12:59) rash Medication List - Last Reconciled 05/09/23 by Reed Vazquez MD acetaminophen ER (Tylenol Arthritis Pain) 650 mg PO Q12H PRN azelastine intranasal candesartan-hydrochlorothiazid 32-12.5 mg tabs PO DAILY Enbrel SureClick (etanercept) 50 mg subcut .10D NS lidocaine 5% 1 patch topical DAILY PRN loteprednol etabonate 0.5% drps ophthalmic (eye) multivitamin with folic acid 400 mcg (Daily-Mari (with folic acid)) tabs PO olmesartan-hydrochlorothiazide 40-12.5 mg 1 tab PO DAILY sennosides (senna) mg PO DAILY HPI HPI Comments History of Present Illness Details 67yoF presents for follow-up of seropositive RA (RF+ CCP++). Last seen 01/12 Taking Enbrel and is tolerating it well. Today patient is complaining of intermittent pain at the base of her left thumb as well as her right thumb, intermittent pain in the left 2nd and 3rd MCPs. She also has low back pain. Worse with activity. Also has left medial and lateral knee pain. Worse with activity. [facility] Medical History (Updated 05/09/23 @ 13:25 by Reed Vazquez MD) Cervical spondylosis with radiculopathy Seropositive rheumatoid arthritis Bilateral inguinal hernia Hyperthyroidism Hyperlipidemia Glaucoma Kidney stones GERD (gastroesophageal reflux disease) Chronic constipation Overlap syndrome Osteoarthritis Sjogrens syndrome Surgical History Hx of hernia repair Hx of tooth extraction Family History Father Intracranial aneurysm CVD (cardiovascular disease) Mother Liver cancer HTN (hypertension) Social History Household Members: None Housing: Apartment Alcohol intake: never Patient Tobacco Use Status: Never used Tobacco Review of Systems [facility] Reports back pain and Reports arthralgias Physical Exam Vital Signs: Last Vital Signs Pulse 77 05/09/23 12:57 BP 148/98 H 05/09/23 12:57 BMI result Body Mass Index 30.1 Const General: cooperative, healthy appearing and comfortable Nutritional Appearance: overweight Orientation/consciousness: patient oriented x3 Limitations: no limitations HEENT Head: Yes normocephalic and Yes atraumatic Mouth: moist mucous membranes Resp Effort & Inspection: normal respiratory effort and able to speak in complete sentences Auscultation: clear to auscultation bilaterally Cardio Rate: regular rate Rhythm: regular rhythm Neuro General: patient oriented x3 Extrem Other: No active synovitis Left 1st CMC tenderness Osteoarthritic changes of both hands with prominent Heberden's nodes especially left hand Minimal swelling and tenderness left 2nd 3rd MCPs Normal range of motion of both shoulders and elbows with no pain Negative rotator cuff provocative maneuvers bilaterally Bilateral lower lumbar paraspinal muscle tenderness Mildly positive straight leg raise test bilaterally Left knee pain with full flexion & Tenderness at the medial and lateral joint lines Assessment & Plan Assessment & Plan (1) Seropositive rheumatoid arthritis: Comment: +RF++CCP Humira-caused rash Enbrel - 2013 - present was on MTX & HCQ in the past Code(s): M05.9 - Rheumatoid arthritis with rheumatoid factor, unspecified Plan: Seropositive RA (RF+ CCP++). On Enbrel, her rheumatoid arthritis appears well controlled. Continue Enbrel 50 mg subQ weekly Labs before next visit in 3 months (2) SS-A antibody positive: Code(s): R76.8 - Other specified abnormal immunological findings in serum Plan: Reviewed old labs showing positive SSA & SSB in high titers. There are no sicca symptoms upon evaluation today. Will recheck serologies (3) Lumbar degenerative disc disease: Code(s): M51.36 - Other intervertebral disc degeneration, lumbar region Plan: Referred to PT (4) Osteoarthritis of hands, bilateral: Code(s): M19.041 - Primary osteoarthritis, right hand; M19.042 - Primary osteoarthritis, left hand Qualifiers: Osteoarthritis type: primary Qualified Code(s): M19.041 - Primary osteoarthritis, right hand; M19.042 - Primary osteoarthritis, left hand Plan: Referred to occupational therapy Use Voltaren gel for left knee pain. Patient refused a knee x-ray (5) Screening for osteoporosis: Code(s): Z13.820 - Encounter for screening for osteoporosis Plan: Will check a DEXA scan Plan I spent 46 minutes reviewing patient's chart, evaluating patient, ordering diagnostic workup, counseling patient and documenting in the chart Orders: Orders PT Evaluation and Treatment Today M51.36 - Other intervertebral disc degeneration, lumbar region Complete Blood Count Auto Diff 3 Months M05.9 - Rheumatoid arthritis with rheumatoid factor, unspecified Comprehensive Met. Panel 3 Months M05.9 - Rheumatoid arthritis with rheumatoid factor, unspecified C Reactive Protein 3 Months M05.9 - Rheumatoid arthritis with rheumatoid factor, unspecified Erythrocyte Sedimentation Rate 3 Months M05.9 - Rheumatoid arthritis with rheumatoid factor, unspecified OT Evaluation and Treatment Today M19.041 - Primary osteoarthritis, right hand, M19.042 - Primary osteoarthritis, left hand XR DEXA axial skeleton Today M81.0 - Age-related osteoporosis without current pathological fracture, Z13.820 - Encounter for screening for osteoporosis Coding Level of Care Code Est Pt Level 5 (09607) Diagnoses Seropositive rheumatoid arthritis M05.9 SS-A antibody positive R76.8 Lumbar degenerative disc disease M51.36 Primary osteoarthritis of both hands M19.041; M19.042 Osteoarthritis type: primary Screening for osteoporosis Z13.820
== END 2023-05-09 13:20 | disposition home or self-care (01) ==
PROVIDERS: PCP Physician Assistant Medical; Visit Provider Student in an Organized Health Care Education/Training Program
DX: M05.79 Rheumatoid arthritis with rheumatoid factor of multiple sites without organ or systems involvement (principal); R76.8 Other specified abnormal immunological findings in serum; M51.36 Other intervertebral disc degeneration, lumbar region; M19.041 Primary osteoarthritis, right hand; M19.042 Primary osteoarthritis, left hand; Z13.820 Encounter for screening for osteoporosis
CPT/HCPCS: 99215

== ENCOUNTER → 2023-05-09 12:54 | Outpatient (BNVA) | payer OTHER, SELFPAY | PROVIDERS: PCP Physician Assistant Medical; Visit Provider Student in an Organized Health Care Education/Training Program | DX: Z13.820 Encounter for screening for osteoporosis (principal); M05.9 Rheumatoid arthritis with rheumatoid factor, unspecified; M51.36 Other intervertebral disc degeneration, lumbar region; M19.041 Primary osteoarthritis, right hand; M19.042 Primary osteoarthritis, left hand; R76.8 Other specified abnormal immunological findings in serum | CPT/HCPCS: 99212 ==

== ENCOUNTER 2023-06-03 14:15 | Outpatient (REF) | payer OTHER, SELFPAY ==
--- NOTE | ~2023-06-03 | MM_ITS ---
EXAMINATION: BONE DENSITOMETRY CLINICAL INDICATION: Age-related osteoporosis without current pathological fracture. COMPARISON: This is the patient's baseline examination. TECHNIQUE: Using a [employer] DXA System (software version: 13.1) manufactured by [employer], dual-energy x-ray absorptiometry was performed of the lumbar spine and left hip. The images are of good technical quality. Summary results are attached. FINDINGS: LEFT FEMUR, NECK: BMD 0.720 g/cm2, Z-score -0.7, T-score -2.3, osteopenia. LEFT FEMUR, TOTAL: BMD 0.828 g/cm2, Z-score -0.1, T-score -1.4, osteopenia. AP SPINE L1-L4: BMD 0.917 g/cm2, Z-score -0.6, T-score -2.2, osteopenia. IDENTIFIED RISK FACTORS: Menopause, rheumatoid arthritis. HISTORY OF FRACTURE: None listed. MEDICATIONS: Calcium supplements or multivitamin, vitamin D. MM/XR DEXA axial skeleton IMPRESSION: 1. DIAGNOSIS: Osteopenia based on the lowest T-score value of -2.3 in the femoral neck applying World Health Organization criteria. 2. 10-YEAR FRACTURE RISK PREDICTION, FRAX: Major osteoporotic fracture (clinical spine, forearm, hip or shoulder) 16.9%. Hip fracture 3.8%. 3. Treatment Recommendations: NOF guidelines recommend consideration for treatment in postmenopausal women and men age 50 and older presenting with the following: -A hip or vertebral (clinical or morphometric) fracture. -T-score less than or equal to -2.5 at the femoral neck or spine after appropriate evaluation to exclude secondary causes. -Low bone mass at the hip or spine and a 10-year fracture probability by FRAX of greater than or equal to 3% for hip fracture or greater than or equal to 20% for major osteoporotic fracture based on the [place] adapted WHO algorithm. 4. Other Recommendations: All treatment decisions require clinical judgment and consideration of individual patient factors, including patient preferences, comorbidities, previous drug use, risk factors not captured in the FRAX model (e.g. frailty, falls, vitamin D deficiency, increased bone turnover, interval significant decline in bone density) and possible under or overestimation of fracture risk by FRAX. Additional medical evaluation for secondary cause of low bone mineral density may be appropriate. FUTURE SCAN RECOMMENDATION: People with diagnosed cases of osteoporosis or at high risk for fracture should have regular bone mineral density tests. For patients eligible for Medicare, routine testing is allowed once every 2 years. The testing frequency can be increased to one year for patients who have rapidly progressing disease, those who are receiving or discontinuing medical therapy to restore bone mass, or have additional risk factors.
== END 2023-06-03 14:16 | disposition home or self-care (01) ==
LOC: HO.MAMMO 14:15
PROVIDERS: PCP Physician Assistant Medical; Visit Provider Student in an Organized Health Care Education/Training Program
DX: Z13.820 Encounter for screening for osteoporosis (principal); Z78.0 Asymptomatic menopausal state; M81.0 Age-related osteoporosis without current pathological fracture
CPT/HCPCS: 77080

== ENCOUNTER 2023-07-06 12:00 | Outpatient (RCR) | payer OTHER, SELFPAY ==
[2023-06-10 12:08] VITALS: BP 195/101; PULSE 73; RESP 10; O2SAT 97
--- NOTE | 2023-07-07 09:25 | MHC.PT.DC ---
[facility] [place] [facility] [place] Office [place] Office [address] Kaitlin Solomon [address] [phone] F: [phone] F: [phone] F: [phone] F: [phone] Physical Therapy Discharge Report Diagnosis: lumbago Date of Surgery: Date of Evaluation: 06/10/23 Date of Discharge: 07/06/23 Treatments to Date: 8 Cancellations to Date: No Shows to Date: Discharge Status: Achieved Goals Improved Function Independent with HEP Discharge Summary: Pt is a 67 yo female who was referred to PT for low back pain, impacting her functional mobility. Skilled PT was indicated to address hip and core strength impairments, teach self-management techniques via HEP, reduce pain/tissue density via modalities and manual treatment. Pt fully participated in POC. Limited at times due to high BP. Overall MILY score improved from 26% to 14%, improved body mechanics when lifting, core strength improved to be able to hold incline plank indicating improved spinal stability. Pt in agreement with D/C and will continue HEP. Electronically signed by: Yulissa Arnold PT, DPT Please sign and return to therapist. Thank you for your referral.
== END 2023-07-07 09:33 | disposition home or self-care (01) ==
LOC: HO.PT 12:00
PROVIDERS: PCP Physician Assistant Medical; Visit Provider Student in an Organized Health Care Education/Training Program
DX: M51.36 Other intervertebral disc degeneration, lumbar region (principal)
CPT/HCPCS: 97014; 97110; 97140; 97161; 97162; 97530

== ENCOUNTER 2023-07-15 13:00 | Outpatient (RCR) | payer OTHER, SELFPAY ==
--- NOTE | 2023-06-09 13:58 | MHC.OT.EP ---
[address] [phone] Occupational Therapy Plan of Care Patient Name: Daylin Reyna Date of Evaluation: 06/09/23 Diagnosis: OA OF B/L HANDS Pain Location: RIGHT > LEFT HAND THUMBS > DIGITS L THUMB 3/10 AT REST, 8-9/10 WITH USE R THUMB 4/10, 9/10 WITH USE Pain Score: 3-9/10 Pain Scale Used: Numeric (0 - 10) Aggravating Factors: GRIPPING Alleviating Factors: OCCASIONAL USE OF HEAT/ WARM COMPRESS, CABBAGE LEAVES, DOES NOT USE SPLINTS THAT SHE OWNS (HARD TO PUT ON/OFF), TYLENOL FOR ARTHRITIS PAIN IN HANDS AND NECK, Assessment: MS REYNA REPORTS A RECENT INCREASE IN PAIN IN B/L HANDS AND THUMBS OVER THE PAST FEW MONTHS. RIGHT GREATER THAN LEFT. SHE STATES SHE HAS A 10 YEAR HISTORY OF OA. SHE LIVES ALONE AND HAS DIFFICULTIES COMPLETING DAILY TASKS. A 61% LIMITATION IS REPORTED PER THE QUICK DASH ASSESSMENT. ONGOING SKILLED OT IS WARRANTED TO ADDRESS AREAS MENTIONED BELOW. Frequency and Duration: The patient will be seen 2X/WEEK FOR 4 WEEKS Short Term Goals: IND HEP IND JT PROTECTION AND ACTIVITY MODIFICATION IND USE OF HEAT, CONSIDER PURCHASE HOME PARAFFIN BATH IND ORTHOSIS USE [facility] Goals: QUICK DASH <40% REPORT <2/10 PAIN AT REST AND <4/10 WITH LIGHT ADLs INCREASE R GROSS GRASP TO 25 POUNDS Treatment Plan: Therapeutic Exercise Therapeutic Activity Home Exercise Program Splinting Neuro Re-ed Patient Education Desensitization/Sensory Re-ed Edema Control ADL Training Ultrasound NMES Iontophoresis Paraffin Fluidotherapy MHP Cold Packs Joint Mobilization Soft Tissue Mobilization Kinesiotaping Other (see comments) Electronically Signed By: JESSICA AMOR OTR/L Please Sign and return to therapist. Thank you once again for your referral.
--- NOTE | 2023-07-15 13:27 | MHC.OT.DC ---
[address] [phone] F: [phone] Occupational Therapy Discharge Note Patient Name: Daylin Reyna Provider: Reed Vazquez Diagnosis: OA OF B/L HANDS Date of Surgery: Date of Evaluation: 06/09/23 Date of Discharge: 07/15/23 Treatments to Date: 8 Cancellations to Date: 2 No Shows to Date: 0 Discharge Status: Discharge Summary: Pt REPORTS IMPROVEMENT IN HAND PAIN AND HAND STRENGTH SINCE STOPPING HER STATIN MEDICATION. PAIN AND HAND STRENGTH TO WNL GOALS MET Electronically Signed By: YINA PINEDA OT CHT CLT Reviewed/agree with student documentation: N/A Therapist: Please Sign and return to therapist, thank you for your referral.
== END 2023-07-15 13:28 | disposition home or self-care (01) ==
LOC: HO.OT 13:00
PROVIDERS: PCP Physician Assistant Medical; Visit Provider Student in an Organized Health Care Education/Training Program
DX: M19.041 Primary osteoarthritis, right hand (principal); M19.042 Primary osteoarthritis, left hand
CPT/HCPCS: 29130; 97035; 97110; 97165; 97760

== ENCOUNTER 2023-08-01 09:37 | Outpatient (REF) | payer OTHER, SELFPAY ==
[2023-08-01 10:07] LABS: MANUAL DIFF FLAG NO
[2023-08-01 10:09] LABS: Basophils Percent Auto 0.5 % (0-2); Eosinophils Absolute Auto 0.1 X10*3/uL (0.0-0.4); Eosinophils Percent Auto 1.8 % (0-4); Hematocrit 40.6 % (37.0-47.0); Hemoglobin 13.6 g/dl (12.0-16.0); Lymphocytes Absolute Auto 2.2 X10*3/uL (1.2-4.9); Lymphocytes Percent Auto 50.7 % (20-40); Mean Corpuscular HGB Conc 33.5 g/dl (31.0-35.0); Mean Corpuscular Hemoglobin 28.7 pg (27.0-33.0); Mean Corpuscular Volume 85.7 fL (80.0-98.0); Mean Platelet Volume 11.4 fL (9.4-12.3); Monocytes Absolute Auto 0.5 X10*3/uL (0.1-1.2); Neutrophils Absolute Auto 1.6 x10*3/uL (2.0-8.3); Platelet Count 156 X10*3/uL (160-400); Red Blood Count 4.74 X10*6/uL (4.20-5.50); Red Cell Distribution Width 13.7 % (11.0-16.0); White Blood Count 4.4 X10*3/uL (4.8-10.8)
[2023-08-01 11:19] LABS: Erythrocyte Sedimentation Rate 23 MM/HR (0-20)
[2023-08-01 11:45] LABS: Alanine Aminotransferase 28 U/L (0-31); Alkaline Phosphatase 74 U/L (39-117); Anion Gap 12 (12-20); Aspartate Amino Transferase 29 U/L (5-31); Bilirubin Total 0.6 mg/dL (0.0-1.0); Blood Urea Nitrogen 14 mg/dL (9-16); C Reactive Protein 0.12 mg/dL (< or = 0.50); Calcium 9.7 mg/dL (8.4-10.2); Carbon Dioxide 22 mmol/L (22-29); Chloride 109 mmol/L (96-108); Estimated Glomerular Filt Rate > 60; Glucose Random 85 mg/dL (60-115); Potassium 3.8 mmol/L (3.3-5.1); Sodium 139 mmol/L (135-145); Total Protein 8.2 g/dL (6.5-8.0)
== END 2023-08-01 09:38 | disposition home or self-care (01) ==
LOC: HO.LAB 09:37
PROVIDERS: Visit Provider Student in an Organized Health Care Education/Training Program
DX: M05.9 Rheumatoid arthritis with rheumatoid factor, unspecified (principal)
CPT/HCPCS: 36415; 80053; 85025; 85652; 86140

== ENCOUNTER 2023-08-03 10:16 | Outpatient (AMB) | payer OTHER, SELFPAY ==
--- NOTE | 2023-08-03 10:17 | A.OFFVIS_ITS ---
Intake Vital Signs 08/03/23 10:18 Height 4 ft 11 in Weight 148 lb 9.465 oz BMI 30.0 BP 132/74 Blood Pressure Location Lt brachial Position Sitting Pulse 71 Pulse Source Pulse Oximeter Pulse Oximetry (%) 98 Oxygen Delivery Method Room Air Intake Visit Reasons: RA Intake Note: Patient last seen 05/09/23 presents today for follow up and test results. 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 Accompanied by: Self / Same As Patient Allergies Humira Pen Allergy (Intermediate, Uncoded 08/03/23 10:19) rash Medication List - Last Reconciled 08/03/23 by Reed Vazquez MD acetaminophen ER (Tylenol Arthritis Pain) 650 mg PO Q12H PRN azelastine intranasal candesartan-hydrochlorothiazid 32-12.5 mg tabs PO DAILY Enbrel SureClick (etanercept) 50 mg subcut .10D NS lidocaine 5% 1 patch topical DAILY PRN loteprednol etabonate 0.5% drps ophthalmic (eye) multivitamin with folic acid 400 mcg (Daily-Mari (with folic acid)) tabs PO olmesartan-hydrochlorothiazide 40-12.5 mg 1 tab PO DAILY sennosides (senna) mg PO DAILY HPI HPI Comments History of Present Illness Details 68yoF presents for follow-up of seroposi tive RA (RF+ CCP++). Last seen 05/14 Taking Enbrel and is tolerating it well. She states that she has been doing fairly well overall. Recent she has been having some neck pain associated with cracking. She used to use lidocaine patches. She states that she was diagnosed with Sjogren's in the past. She has intermittent dry eyes and dry mouth. She uses artificial tears as needed. She does not do anything specific for dry mouth. She denies any history of falls denies any fevers or weight loss. [facility] Medical History Cervical spondylosis with radiculopathy Seropositive rheumatoid arthritis Bilateral inguinal hernia Hyperthyroidism Hyperlipidemia Glaucoma Kidney stones GERD (gastroesophageal reflux disease) Chronic constipation Overlap syndrome Osteoarthritis Sjogrens syndrome Surgical History Hx of hernia repair Hx of tooth extraction Family History Father Intracranial aneurysm CVD (cardiovascular disease) Mother Liver cancer HTN (hypertension) Social History Household Members: None Housing: Apartment Alcohol intake: never Patient Tobacco Use Status: Never used Tobacco Review of Systems ENT Reports neck pain Card Denies dyspnea Resp Denies cough and Denies dyspnea Musc Reports neck pain Physical Exam Vital Signs: Last Vital Signs Pulse 71 08/03/23 10:18 BP 132/74 08/03/23 10:18 Pulse Ox 98 08/03/23 10:18 Oxygen Delivery Method Room Air 08/03/23 10:18 BMI result Body Mass Index 30.0 Const General: cooperative, healthy appearing and comfortable Nutritional Appearance: overweight Orientation/consciousness: patient oriented x3 Limitations: no limitations HEENT Head: Yes normocephalic and Yes atraumatic Mouth: moist mucous membranes Resp Effort & Inspection: normal respiratory effort and able to speak in complete sentences Auscultation: crackles on the right at the base Cardio Rate: regular rate Rhythm: regular rhythm Skin General skin exam: no rashes or lesions noted Neuro General: patient oriented x3 Extrem Other: No active synovitis Left 1st CMC tenderness Osteoarthritic changes of both hands with prominent Heberden's nodes especially left hand Ps Normal range of motion of both shoulders and elbows with no pain Negative rotator cuff provocative maneuvers bilaterally Assessment & Plan Assessment & Plan (1) Seropositive rheumatoid arthritis: Comment: +RF++CCP Humira-caused rash Enbrel - 2013 - present effective was on MTX & HCQ in the past Code(s): M05.9 - Rheumatoid arthritis with rheumatoid factor, unspecified Plan: Seropositive RA (RF+ CCP++). On Enbrel, her rheumatoid arthritis is well controlled Continue Enbrel 50 mg subQ weekly Labs before next visit in 4 months (2) SS-A antibody positive: Code(s): R76.8 - Other specified abnormal immunological findings in serum Plan: Positive SSA and SSB in high titers. Patient has mild sicca symptoms. She uses artificial tears as needed Advised patient to try using Biotene mouthwash, or Biotene spray as needed. Consider Biotene toothpaste. Consider XyliMelt (3) Lumbar degenerative disc disease: Code(s): M51.36 - Other intervertebral disc degeneration, lumbar region Plan: Referred to PT (4) Osteoarthritis of hands, bilateral: Code(s): M19.041 - Primary osteoarthritis, right hand; M19.042 - Primary osteoarthritis, left hand Qualifiers: Osteoarthritis type: primary Qualified Code(s): M19.041 - Primary osteoarthritis, right hand; M19.042 - Primary osteoarthritis, left hand Plan: Referred to occupational therapy Use Voltaren gel for left knee pain. Patient refused a knee x-ray (5) Screening for osteoporosis: Code(s): Z13.820 - Encounter for screening for osteoporosis Plan: Will check a DEXA scan (6) Lung crackles: Code(s): R09.89 - Other specified symptoms and signs involving the circulatory and respiratory systems Plan: Right lung base crackles. Will check a high-resolution CT chest to rule out ILD. Check baseline PFTs and 2D echo to screen for ILD/pulmonary hypertension (7) Osteopenia: Code(s): M85.80 - Other specified disorders of bone density and structure, unspecified site Qualifiers: Osteopenia location: multiple sites Qualified Code(s): M85.89 - Other specified disorders of bone density and structure, multiple sites Plan: No history of fractures. Osteopenia with high FRAX score. Patient qualifies for treatment. Needs antiresorptive. Discussed risks and benefits of alendronate. Start alendronate 70 mg weekly Plan I spent 46 minutes reviewing patient's chart, evaluating patient, ordering diagnostic workup, counseling patient and documenting in the chart Orders: Orders Complete Blood Count Auto Diff 3 Months M05.9 - Rheumatoid arthritis with rheumatoid factor, unspecified Comprehensive Met. Panel 3 Months M05.9 - Rheumatoid arthritis with rheumatoid factor, unspecified Erythrocyte Sedimentation Rate 3 Months M05.9 - Rheumatoid arthritis with rheumatoid factor, unspecified CT chest wo con - High Res Today J84.9 - Interstitial pulmonary disease, unspecified PFT pulmonary function test Today R06.02 - Shortness of breath PT Evaluation and Treatment Today M50.30 - Other cervical disc degeneration, unspecified cervical region C Reactive Protein 3 Months M05.9 - Rheumatoid arthritis with rheumatoid factor, unspecified CA echo transthoracic complete Today R06.02 - Shortness of breath Medications: New alendronate Take 1 tab once weekly, 1st thing in the morning, on an empty stomach, with a large glass of water (at least 6 oz) and stay upright for 30 minutes 70 mg PO QWEEK 12 tabs 1RF Coding Level of Care Code Est Pt Level 5 (82963) Diagnoses Seropositive rheumatoid arthritis M05.9 SS-A antibody positive R76.8 Lumbar degenerative disc disease M51.36 Primary osteoarthritis of both hands M19.041; M19.042 Osteoarthritis type: primary Screening for osteoporosis Z13.820 Lung crackles R09.89 Osteopenia of multiple sites M85.89 Osteopenia location: multiple sites
[2023-08-03 10:18] VITALS: BP 132/74; PULSE 71; O2SAT 98
== END 2023-08-03 10:49 | disposition home or self-care (01) ==
PROVIDERS: PCP Physician Assistant Medical; Visit Provider Student in an Organized Health Care Education/Training Program
DX: M05.79 Rheumatoid arthritis with rheumatoid factor of multiple sites without organ or systems involvement (principal); R76.8 Other specified abnormal immunological findings in serum; M51.36 Other intervertebral disc degeneration, lumbar region; M19.041 Primary osteoarthritis, right hand; M19.042 Primary osteoarthritis, left hand; Z13.820 Encounter for screening for osteoporosis; R09.89 Other specified symptoms and signs involving the circulatory and respiratory systems; M85.89 Other specified disorders of bone density and structure, multiple sites
CPT/HCPCS: 99215

== ENCOUNTER → 2023-08-03 10:16 | Outpatient (BNVA) | payer OTHER, SELFPAY | PROVIDERS: PCP Physician Assistant Medical; Visit Provider Student in an Organized Health Care Education/Training Program | DX: M05.9 Rheumatoid arthritis with rheumatoid factor, unspecified (principal); R76.8 Other specified abnormal immunological findings in serum; M51.36 Other intervertebral disc degeneration, lumbar region; M19.041 Primary osteoarthritis, right hand; M19.042 Primary osteoarthritis, left hand; R09.89 Other specified symptoms and signs involving the circulatory and respiratory systems; M85.89 Other specified disorders of bone density and structure, multiple sites; Z79.899 Other long term (current) drug therapy | CPT/HCPCS: 99212 ==

== ENCOUNTER → 2023-08-23 13:46 | Outpatient (REF) | payer OTHER, SELFPAY ==
--- NOTE | 2023-08-23 13:48 | CA_ITS ---
Transthoracic Echocardiogram Patient (Last, First, Middle): Daylin Reyna, Gender: Female Date of : 1955 Age: 68 Procedure Date: 08/23/2023 Procedure Type: Transthoracic Echocardiogram Location: OP Height: 149.86 cm Weight: 67.13 kg BSA: 1.62 m2 Heart Rate: 64 bpm BP: 136 / 74 mmHg Public Health Social Worker: HA Referring MD: Reed Vazquez MD Lactation Coordinator: Shady Harper MD Symptoms: R06.02 - Shortness of breath Study Quality: Adequate ECG Rhythm: Sinus Conclusions: - 1. Normal LV ejection fraction 55-60% with normal filling pattern 2. Normal cardiac valvular Doppler 3. Normal RV systolic pressure 4. Upper limits of normal ascending aortic size 5. No gross pericardial effusion Findings Left Ventricle Normal left ventricular size, thickness, and systolic function. The visually estimated ejection fraction is between 55-60%. Spectral Doppler is indicative of a normal filling pattern. Right Ventricle Normal right ventricular cavity size and systolic function. Atria Both atria are normal in size. There is no evidence of interatrial shunt. Aortic Valve Normal aortic valve structure and function. There is no aortic valve stenosis. There is no aortic valve regurgitation. Mitral Valve Normal mitral valve structure and function. There is trace mitral valve regurgitation. There is no mitral valve stenosis. Pulmonic Valve The pulmonic valve is likely normal. There is trace pulmonic valve regurgitation. Tricuspid Valve Normal tricuspid valve structure. There is mild tricuspid valve regurgitation. The right ventricular systolic pressure is normal. The right ventricular systolic pressure is 26 mmHg. Normal right atrial pressure. There is no evidence of pulmonary hypertension. Great Vessels The pulmonary artery was not well visualized. Venous The inferior vena cava is normal in size and collapses greater than 50% with inspiration. Pericardium/Pleural There is no evidence of pericardial effusion. Prior Study Comparison No prior study available for comparison. Measurements 2D Linear Measurements IVSd: 0.82 0.6-0.9/0.6-1.0 cm LVIDd: 4.82 3.9-5.3/4.2-5.9 cm LVIDd Index: 2.98 2.4-3.2/2.2-3.1 cm/m2 LVIDs: 3.31 2.0-3.6 cm LVPWd: 0.67 0.7-1.1 cm LA Diam: 4.10 2.7-3.8/3.0-4.0 cm LAIDs Index: 2.53 1.5-2.3 cm/m2 LV Mass: 145.70 67-162/88-224 g LV Mass Index: 89.94 43-95/49-115 g/m2 LVOT Diam: 2.10 3.0+(-)1.3 cm 2D Systolic Function EF 2C: 55.80 >55% Mitral Valve MV Pk E: 0.57 MV PK A: 0.47 MV Decel Time: 130.00 E/A: 1.20 E'Lateral: 4.24 E'Medial: 3.59 E/E' Med: 15.90 E/E' Lat: 13.40 PHT: 38.00 MVA PHT: 5.79 Decel Burke: 4.37 Aortic Valve AoV Pk Kwadwo: 0.96 AoV Pk Grad: 4.00 TAI: 2.60 LVOT LVOT Pk Kwadwo: 0.72 LVOT Mn Kwadwo: 0.44 LVOT VTI: 0.15 LVOT Pk Grad: 2.00 LVOT Mn Grad: 1.00 LVOT Diam: 2.10 LVOT Area: 3.46 Diastolic Function MV Pk E: 0.57 MV Pk A: 0.47 E/A: 1.20 E'Medial: 3.59 E/E' Med: 15.90 E' Laterial: 4.24 E/E' Lat: 13.40 Right Ventricle TAPSE (mm): 18.70 TVS' Kwadwo: 11.70 Tricuspid Valve TR Pk Kwadwo: 2.39 TR Pk Grad: 23.00 RA Press: 3.00 RVSP: 26.00 Great Vessels Aorta Sinus of Valsalva: 3.10 2.0-3.5 cm Ao Asc: 3.60 2.1-3.4 cm Pulmonary Veins Pulm Vein S/D 1.20 Pulmonary Valve PV Pk Kwadwo: 0.67 Peak PV Grad: 2.00 Updated in Other Vendor System with Status of Final Shady Harper MD electronically signed on 08/23/2023 4:03:43 PM with status of Final
== END ==
LOC: HO.CARD 13:46
PROVIDERS: PCP Physician Assistant Medical; Visit Provider Student in an Organized Health Care Education/Training Program
DX: R06.02 Shortness of breath (principal)
CPT/HCPCS: 93306

== ENCOUNTER → 2023-08-23 13:48 | Outpatient (BNV) | payer OTHER, SELFPAY | PROVIDERS: PCP Physician Assistant Medical; Visit Provider Internal Medicine Cardiovascular Disease | DX: R06.02 Shortness of breath (principal) | CPT/HCPCS: 93306 ==

== ENCOUNTER 2023-09-13 07:26 | Outpatient (REF) | payer OTHER, SELFPAY ==
--- NOTE | ~2023-09-13 | CT_ITS ---
EXAMINATION: CT CHEST WITHOUT CONTRAST CLINICAL INFORMATION: Interstitial pulmonary disease, unspecified. COMPARISON: Chest radiographs dated 09/16/2010. TECHNIQUE: Multidetector volumetric CT imaging of the chest was done. Axial MIP volume rendering provided. Sagittal and coronal reformatted images were obtained. This CT examination was performed using dose optimization techniques as appropriate, variously including the following: *Automated exposure control *Adjustment of mA and/or kV according to patient size (this includes techniques or standardized protocols for targeted exams where dose is matched to indication/reason for exam; i.e. extremities or head) *Use of iterative reconstruction technique DLP: 127 mGy-cm FINDINGS: EMBOSSER APPRENTICE: The lungs are clear. There is mild elevation of the right hemidiaphragm. LUNGS: Within the anterior segment of the right upper lobe medially (6:82), a 3 mm noncalcified nodule is seen. Within the posterior segment of the right upper lobe (6:81), a 1 mm noncalcified nodule is seen. There are a few further bilateral scattered benign, calcified granulomas. There is no mass, infiltrate or groundglass opacity. There are mild bibasilar predominant subpleural linear and polygonal reticular markings. There is associated mild bibasilar bronchiectasis. There are mild, scattered bibasilar subpleural groundglass opacities. No honeycombing is noted. There is no generalized small airway thickening. The central airways appear patent. MEDIASTINUM: The mediastinum is normal. CORONARY ARTERY CALCIFICATION: None visualized on this study. PLEURA: There is no pleural effusion. No pleural mass or thickening. AXILLA: No lymphadenopathy. UPPER ABDOMEN: There is an incompletely included, simple appearing right renal upper pole cyst. The adrenal glands are unremarkable. OSSEOUS STRUCTURES: There is multi-level thoracic degenerative disc disease and spondylosis. No acute or aggressive osseous finding is noted. CT/CT chest wo con - High Res IMPRESSION: 1. There is mild to moderate chronic interstitial lung disease, with imaging features including increased subpleural reticular markings, scattered subpleural groundglass opacities and bronchiectasis. There is a bibasilar predominance, and no honeycombing is noted. These findings suggest possible nonspecific interstitial pneumonia (NSIP). 2. There are noncalcified and calcified pulmonary nodules, the largest noncalcified nodule situated within the right upper lobe measuring 3 mm. According to the UPDATED 2017 Fleischner Society recommendations, the advised follow-up imaging for solid nodules < 6 mm is: LOW RISK PATIENT: No routine follow-up. HIGH RISK PATIENT: Optional CT at 12 months. 3. No thoracic lymphadenopathy or pleural effusion is seen. 4. There are degenerative changes of the spine. No acute or aggressive osseous finding is noted. Fleischner guidelines were followed.
== END 2023-09-13 07:27 | disposition home or self-care (01) ==
LOC: HO.CT 07:26
PROVIDERS: PCP Physician Assistant Medical; Visit Provider Student in an Organized Health Care Education/Training Program
DX: J84.9 Interstitial pulmonary disease, unspecified (principal)
CPT/HCPCS: 71250

== ENCOUNTER 2023-09-21 09:00 | Outpatient (RCR) | payer OTHER, SELFPAY ==
--- NOTE | 2023-08-22 12:24 | MHC.PT.EP ---
[facility] [place] Office [place] Office [place] Office [address] Kaitlin Solomon [address] [phone] F: [phone] F: [phone] F: [phone] F: [phone] Physical Therapy Plan of Care Date of Evaluation: 08/22/23 Date of Surgery: Diagnosis: CERVICAL DISC DEGENERATION Assessment: 68 YO FEMALE REF TO PT FOR CHRONIC NECK PAIN, CERV DEGEN DISC- SHE RESIDES ALONE IN A FIRST FLOOR APT AND IS INDEP W ADLs, W RESPECT TO HER NECK SXS. THE Pt IS Rt HAND DOMINANT AND SHE DENIES RADICULAR SXS. 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 OBJECTIVE FINDINGS: DECR CERV AROM, (+) TISSUE TENSION IN KARLENE UT/ CERV PS MM, DECR POSTURAL AWARENESS, AND FLUCTUATING PAIN IN HER CERV REGION. HER MRI REVEALED :There is multilevel degenerative spondylosis of the cervical spine. Moderate canal stenosis at C5-C6 and slight anterolisthesis of C7 on T1. FUNCTIONALLY, THE Pt HAS DIFFIC SLEEPING, LIFTING OBJECTS, AND MORE PHYSICALLY DEMANDING ADLs. SHE WOULD BENEFIT FROM PT TO ADDRESS THE ABOVE FINDINGS , DEV A HEP, AND EDUC RE SELF-SX MGMT TECHN. 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 Manual therapy to restore motion and function. Therapeutic exercise to improve strength and flexibility. Neuromuscular re-education for posture and balance. Therapeutic activities to return to functional activities of daily living. Electronically signed by: DIANA EWING,PT Please sign and return to therapist. Thank you for your referral.
--- NOTE | 2023-09-22 08:52 | MHC.PT.DC ---
[facility] [place] Office [place] Office [place] Office [address] Kaitlin Solomon 140 [facility] [phone] F: [phone] F: [phone] F: [phone] F: [phone] Physical Therapy Discharge Report Diagnosis: CERVICAL DISC DEGENERATION Date of Surgery: Date of Evaluation: 08/22/23 Date of Discharge: 09/22/23 Treatments to Date: 10 Cancellations to Date: 0 No Shows to Date: 0 Discharge Status: Achieved Goals Improved Function Independent with HEP Discharge Summary: MKIO HAS RESPONDED WELL TO PT TO ADDRESS HER NECK PAIN-> SHE HAS IMPROVED POSTURAL AWARENESS, REDUCED SOFT TISSUE TENSION, AND LESS GUARDED CERVICAL AROM. SHE HAS MORE EFFICENT BODY MECHANICS W TRANSITIONAL MOVEMENTS AND NOTES SHE CAN PERFORM HER ADLs W/O EXACERBATING HER PAIN. SHE IS INDEP W HER HEP. HER NPDI SCORE WAS 11/50 AT DISCHARGE. Electronically signed by: DIANA EWING,PT Please sign and return to therapist. Thank you for your referral.
== END 2023-09-22 08:53 | disposition home or self-care (01) ==
LOC: HO.PT 09:00
PROVIDERS: PCP Physician Assistant Medical; Visit Provider Student in an Organized Health Care Education/Training Program
DX: M50.30 Other cervical disc degeneration, unspecified cervical region (principal)
CPT/HCPCS: 97110; 97140; 97162; 97530

== ENCOUNTER 2023-09-27 10:02 | Outpatient (AMB) | payer OTHER, SELFPAY ==
[2023-09-27 10:06] VITALS: BP 120/86; PULSE 73; O2SAT 97; BMI 28.9
--- NOTE | 2023-09-27 10:06 | A.OFFVIS_ITS ---
Vital Signs 09/27/23 10:06 Height 4 ft 11 in Weight 143 lb 4 oz BMI 28.9 BP 120/86 Blood Pressure Location Lt brachial Position Sitting Pulse 73 Pulse Source Pulse Oximeter Pulse Oximetry (%) 97 Oxygen Delivery Method Room Air Intake Visit Reasons: Interstitial lung disease Allergies Humira Pen Allergy (Intermediate, Uncoded 09/27/23 10:09) rash HPI HPI Interstitial lung disease: Details: Daylin is a pleasant 68 year old female, never smoker, with underlying rheumatoid arthritis, sjogren's, hyperthyroidism, GERD and glaucoma. She was referred by rheumatology for pulmonary evaluation after abnormal evaluation. On exam inspiratory crackles were ausculated at rheumatology follow up and send for chest CT which revealed findings suggestive of ILD. Full report below. She denies any prior abnormal chest CT. At this time she denies any respiratory symptoms. She denies any prior diagnosis of asthma. 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 She was diagnosed with RA about 15 years ago, reporting polyarthralgias. Previously on methotrexate, hydroxychloroquine and prednisone, now maintained on Enbrel x 5 years. She denies any pertinent family history. She reports prior diagnosis of YEN and nocturnal hypoxemia but could not tolerate the mask and is interested in attempting CPAP therapy again. She notes loud snoring and daytime fatigue. FORMERLY [facility], [facility] Medical History (Updated 09/30/23 @ 20:57 by Lynne Nance NP) Lung crackles Cervical spondylosis with radiculopathy Seropositive rheumatoid arthritis Bilateral inguinal hernia Hyperthyroidism Hyperlipidemia Glaucoma Kidney stones GERD (gastroesophageal reflux disease) Chronic constipation Overlap syndrome Osteoarthritis Sjogrens syndrome Surgical History Hx of hernia repair Hx of tooth extraction Family History Father Intracranial aneurysm CVD (cardiovascular disease) Mother Liver cancer HTN (hypertension) Social History Household Members: None Housing: Apartment Alcohol intake: never Patient Tobacco Use Status: Never used Tobacco Review of Systems Const Denies chills, Denies excessive sweating, Denies fever(s), Denies headache(s) and Denies night sweats Eyes Denies irritation and Denies itchy eyes ENT Reports Normal hearing present, Denies headache(s), Denies nasal congestion, Denies nasal discharge, Denies post nasal drip and Denies sore throat Card Denies chest pain, Denies chest pain at rest, Denies chest pain with activity, Denies claudication, Denies leg edema, Denies dyspnea, Denies dyspnea on exertion, Denies orthopnea and Denies paroxysmal nocturnal dyspnea Resp Denies chest congestion, Denies cough, Denies excessive phlegm production, Denies pain on inspiration, Denies pain with cough, Denies dyspnea, Denies dyspnea on exertion, Denies stridor and Denies wheezing Musc Denies myalgias Neuro Reports Normal hearing present and Denies headache(s) Endo Denies excessive sweating New/Lymph Denies lymphadenopathy Aller/Immun Denies itchy eyes, Denies seasonal rhinorrhea and Denies wheezing Physical Exam Vital Signs: Last Vital Signs Pulse 73 09/27/23 10:06 BP 120/86 09/27/23 10:06 Pulse Ox 97 09/27/23 10:06 Oxygen Delivery Method Room Air 09/27/23 10:06 BMI result Body Mass Index 28.9 Const General: cooperative, healthy appearing, comfortable, no acute distress, well developed and alert Orientation/consciousness: patient oriented x3 Limitations: no limitations HEENT Head: Yes normal to inspection, Yes normocephalic and Yes atraumatic Ears: hearing grossly normal bilaterally and external ears normal Eyes General: appearance normal, both eyes and all related structures Eyelids: Yes eyelids normal Sclerae: sclerae normal EOM: EOMs intact bilaterally Neck Neck: Yes normal visual inspection and Yes no lymphadenopathy Lymphatic: no lymphadenopathy noted Chest Chest palpation & inspection: normal inspection of the chest Resp Other: bibasilar inspiratory crackles Effort & Inspection: normal respiratory effort, able to speak in complete sentences, no audible wheezes, no cough, no stridor, not tachypneic, no tripod positioning and no use of accessory muscles Cardio Jugular venous distension: no JVD Rate: regular rate Rhythm: regular rhythm Skin Other: warm, dry General skin exam: no rashes or lesions noted Neuro General: patient oriented x3 Cranial nerves: Yes Normal hearing present Cognition (Neuro): normal cognition Gait exam (Neuro): Normal gait present Extrem General: Yes normal to inspection, Yes capillary refill normal, Yes no clubbing, cyanosis or edema and Yes no pedal edema Psych Appearance: grossly normal and well kempt Speech and movement: Normal speech and movement present and Clear speech present Affect: normal affect Attitude: cooperative Thought process: Normal thought process present Thought content: Normal thought content present Insight: Good insight present (Psych) Judgement: Good judgement present (Psych) Results Reviewed Results Reviewed: [address] [address] [address] Scan Report Signed Patient: Daylin Reyna MR#: [id number] : 1955 Acct:[id number] Age/Sex: 68 / F ADM Date: 09/13/23 Loc: HO.CT Attending Dr: Reed Vazquez MD Ordering Physician: Reed Vazquez MD Date of Service: 09/13/23 Procedure(s): CT chest wo con - High Res Accession Number(s): [id number] cc: REAL MEADOWS; Reed Vazquez MD~ EXAMINATION: CT CHEST WITHOUT CONTRAST CLINICAL INFORMATION: Interstitial pulmonary disease, unspecified. COMPARISON: Chest radiographs dated 09/16/2010. TECHNIQUE: Multidetector volumetric CT imaging of the chest was done. Axial MIP volume rendering provided. Sagittal and coronal reformatted images were obtained. This CT examination was performed using dose optimization techniques as appropriate, variously including the following: *Automated exposure control *Adjustment of mA and/or kV according to patient size (this includes techniques or standardized protocols for targeted exams where dose is matched to indication/reason for exam; i.e. extremities or head) *Use of iterative reconstruction technique DLP: 127 mGy-cm FINDINGS: CARGO INSPECTOR: The lungs are clear. There is mild elevation of the right hemidiaphragm. LUNGS: Within the anterior segment of the right upper lobe medially (6:82), a 3 mm noncalcified nodule is seen. Within the posterior segment of the right upper lobe (6:81), a 1 mm noncalcified nodule is seen. There are a few further bilateral scattered benign, calcified granulomas. There is no mass, infiltrate or groundglass opacity. There are mild bibasilar predominant subpleural linear and polygonal reticular markings. There is associated mild bibasilar bronchiectasis. There are mild, scattered bibasilar subpleural groundglass opacities. No honeycombing is noted. There is no generalized small airway thickening. The central airways appear patent. MEDIASTINUM: The mediastinum is normal. CORONARY ARTERY CALCIFICATION: None visualized on this study. PLEURA: There is no pleural effusion. No pleural mass or thickening. AXILLA: No lymphadenopathy. UPPER ABDOMEN: There is an incompletely included, simple appearing right renal upper pole cyst. The adrenal glands are unremarkable. OSSEOUS STRUCTURES: There is multi-level thoracic degenerative disc disease and spondylosis. No acute or aggressive osseous finding is noted. CT/CT chest wo con - High Res IMPRESSION: 1. There is mild to moderate chronic interstitial lung disease, with imaging features including increased subpleural reticular markings, scattered subpleural groundglass opacities and bronchiectasis. There is a bibasilar predominance, and no honeycombing is noted. These findings suggest possible nonspecific interstitial pneumonia (NSIP). 2. There are noncalcified and calcified pulmonary nodules, the largest noncalcified nodule situated within the right upper lobe measuring 3 mm. According to the UPDATED 2017 Fleischner Society recommendations, the advised follow-up imaging for solid nodules < 6 mm is: LOW RISK PATIENT: No routine follow-up. HIGH RISK PATIENT: Optional CT at 12 months. 3. No thoracic lymphadenopathy or pleural effusion is seen. 4. There are degenerative changes of the spine. No acute or aggressive osseous finding is noted. Fleischner guidelines were followed. Dictated By: Caleb Claire MD Signed By: <Electronically signed by Caleb Claire MD in OV> 09/20/23 1015 DD/ 0816 TD/TT: [employer] Plant Supervisor: SYLVIA Assessment & Plan Assessment & Plan (1) Interstitial lung disease: Code(s): J84.9 - Interstitial pulmonary disease, unspecified Category: Medical (2) Sjogren syndrome with inflammatory arthritis: Code(s): M35.05 - Sjogren syndrome with inflammatory arthritis Category: Medical (3) Seropositive rheumatoid arthritis: Code(s): M05.9 - Rheumatoid arthritis with rheumatoid factor, unspecified Category: Medical (4) Loud snoring: Code(s): R06.83 - Snoring Category: Medical (5) Multiple pulmonary nodules: Code(s): R91.8 - Other nonspecific abnormal finding of lung field Category: Medical Plan Daylin presents for pulmonary evaluation after chest CT revealed findings suggestive of ILD. At this time, patient does not report any respiratory symptoms. Will send for PFT to assess for any restrictive defect or decreased DLCO. It is difficult to discern if this is a new finding or related to chronic interstitial changes. Will send for repeat chest CT in 6-12 months to assess for changes. If patient becomes symptomatic, will send for chest CT sooner and place patient on a trial of prednisone. Patient also noted symptoms suggestive of YEN. Will send for home sleep study. All questions were answered and patient is in agreement of plan. Will follow up to review results or sooner if needed. Orders: Orders RT home sleep study Today R06.83 - Snoring PFT pulmonary function test Today J84.9 - Interstitial pulmonary disease, unspecified Coding Level of Care Code New Pt Level 4 (26550) Diagnoses Interstitial lung disease J84.9 Sjogren syndrome with inflammatory arthritis M35.05 Seropositive rheumatoid arthritis M05.9 Loud snoring R06.83 Multiple pulmonary nodules R91.8
== END 2023-09-27 11:00 | disposition home or self-care (01) ==
PROVIDERS: PCP Physician Assistant Medical; Referring Provider Student in an Organized Health Care Education/Training Program; Visit Provider Nurse Practitioner Family
DX: J84.9 Interstitial pulmonary disease, unspecified (principal); M35.05 Sjogren syndrome with inflammatory arthritis; M05.9 Rheumatoid arthritis with rheumatoid factor, unspecified; R06.83 Snoring; R91.8 Other nonspecific abnormal finding of lung field
CPT/HCPCS: 99214

== ENCOUNTER → 2023-09-27 10:02 | Outpatient (BNVA) | payer OTHER, SELFPAY | PROVIDERS: PCP Physician Assistant Medical; Referring Provider Student in an Organized Health Care Education/Training Program; Visit Provider Nurse Practitioner Family | DX: J84.9 Interstitial pulmonary disease, unspecified (principal); M35.05 Sjogren syndrome with inflammatory arthritis; M05.9 Rheumatoid arthritis with rheumatoid factor, unspecified; R06.83 Snoring; R91.8 Other nonspecific abnormal finding of lung field | CPT/HCPCS: 99212 ==

== ENCOUNTER 2023-10-31 08:44 | Outpatient (REF) | payer OTHER, SELFPAY ==
[2023-10-31 09:16] LABS: MANUAL DIFF FLAG NO
[2023-10-31 10:14] LABS: Basophils Percent Auto 0.4 % (0-2); Eosinophils Absolute Auto 0.1 X10*3/uL (0.0-0.4); Hematocrit 40.8 % (37.0-47.0); Hemoglobin 13.5 g/dl (12.0-16.0); Imm Gran Abs Auto 0.01 X10*3/uL (0.00-0.03); Imm Gran Pct Auto 0.2 % (0.0-0.4); Lymphocytes Absolute Auto 2.3 X10*3/uL (1.2-4.9); Lymphocytes Percent Auto 46.7 % (20-40); Mean Corpuscular HGB Conc 33.1 g/dl (31.0-35.0); Mean Corpuscular Hemoglobin 28.1 pg (27.0-33.0); Mean Platelet Volume 11.6 fL (9.4-12.3); Monocytes Absolute Auto 0.4 X10*3/uL (0.1-1.2); Monocytes Percent Auto 8.9 % (2-11); Neutrophils Absolute Auto 2.1 x10*3/uL (2.0-8.3); Neutrophils Percent Auto 41.8 % (45-73); Platelet Count 171 X10*3/uL (160-400); Red Cell Distribution Width 13.2 % (11.0-16.0); White Blood Count 4.9 X10*3/uL (4.8-10.8)
[2023-10-31 10:45] LABS: Alanine Aminotransferase 29 U/L (0-31); Alkaline Phosphatase 74 U/L (39-117); Anion Gap 17 (12-20); Aspartate Amino Transferase 30 U/L (5-31); Bilirubin Total 0.4 mg/dL (0.0-1.0); Blood Urea Nitrogen 16 mg/dL (9-16); C Reactive Protein 0.32 mg/dL (< or = 0.50); Calcium 9.9 mg/dL (8.4-10.2); Carbon Dioxide 22 mmol/L (22-29); Chloride 106 mmol/L (96-108); Estimated Glomerular Filt Rate > 60; Glucose Random 87 mg/dL (60-115); Potassium 4.1 mmol/L (3.3-5.1); Sodium 141 mmol/L (135-145); Total Protein 8.2 g/dL (6.5-8.0)
[2023-10-31 11:01] LABS: Erythrocyte Sedimentation Rate 33 MM/HR (0-20)
== END 2023-10-31 08:45 | disposition home or self-care (01) ==
LOC: HO.LAB 08:44
PROVIDERS: Visit Provider Student in an Organized Health Care Education/Training Program
DX: M05.9 Rheumatoid arthritis with rheumatoid factor, unspecified (principal)
CPT/HCPCS: 36415; 80053; 85025; 85652; 86140

== ENCOUNTER 2023-11-03 10:20 | Outpatient (AMB) | payer OTHER, SELFPAY ==
--- NOTE | 2023-11-03 10:22 | A.OFFVIS_ITS ---
Vital Signs 11/03/23 10:28 Height 4 ft 11 in Weight 142 lb 3.17 oz BMI 28.7 BP 126/80 Blood Pressure Location Rt brachial Position Sitting Pulse 74 Pulse Source Pulse Oximeter Pulse Oximetry (%) 99 Oxygen Delivery Method Room Air Intake Visit Reasons: RA Intake Note: Patient last seen 08/03/23, presents today for follow up. Recent visit [facility] ED for hand pain Allergies Humira Pen Allergy (Intermediate, Uncoded 11/03/23 10:29) rash Medication List - Last Reconciled 11/03/23 by Reed Vazquez MD acetaminophen ER (Tylenol Arthritis Pain) 650 mg PO Q12H PRN alendronate 70 mg PO QWEEK amlodipine 5 mg PO DAILY azelastine intranasal clonidine HCl 0.1 mg PO BID Enbrel SureClick (etanercept) 50 mg subcut .10D NS lidocaine 5% 1 patch topical DAILY PRN loteprednol etabonate 0.5% drps ophthalmic (eye) multivitamin with folic acid 400 mcg (Daily-Mari (with folic acid)) tabs PO sennosides (senna) mg PO DAILY HPI Comments Details: 68-year-old female with seropositive RA and Sjogren's returns for follow-up. Patient states that she went to the ER last month due to bilateral hand and wrist swelling, more severe on the right side. She was discharged from the ER. She states that she has been having swelling of her ankles that she attributes to amlodipine. She denies any cough or shortness of breath. Denies any fevers. Compliant with Enbrel. Compliant with alendronate FORMERLY [facility] Medical History (Updated 11/03/23 @ 11:20 by Reed Vazquez MD) Cervical spondylosis with radiculopathy Seropositive rheumatoid arthritis Bilateral inguinal hernia Hyperthyroidism Hyperlipidemia Glaucoma Kidney stones GERD (gastroesophageal reflux disease) Chronic constipation Overlap syndrome Osteoarthritis Sjogrens syndrome Surgical History Hx of hernia repair Hx of tooth extraction Family History Father Intracranial aneurysm CVD (cardiovascular disease) Mother Liver cancer HTN (hypertension) Social History Household Members: None Housing: Apartment Alcohol intake: never Patient Tobacco Use Status: Never used Tobacco Review of Systems Card Denies dyspnea Resp Denies cough and Denies dyspnea Musc Reports arthralgias and Reports joint swelling Physical Exam Vital Signs: Last Vital Signs Pulse 74 11/03/23 10:28 BP 126/80 11/03/23 10:28 Pulse Ox 99 11/03/23 10:28 Oxygen Delivery Method Room Air 11/03/23 10:28 BMI result Body Mass Index 28.7 Const General: cooperative, healthy appearing and comfortable Nutritional Appearance: overweight Orientation/consciousness: patient oriented x3 Limitations: no limitations HEENT Head: Yes normocephalic and Yes atraumatic Mouth: moist mucous membranes Resp Effort & Inspection: normal respiratory effort and able to speak in complete sentences Auscultation: crackles on the right at the base Cardio Rate: regular rate Rhythm: regular rhythm Skin General skin exam: no rashes or lesions noted Neuro General: patient oriented x3 Extrem Other: Mild bilateral 1st MCP tenderness Positive Deb's test on the right Osteoarthritic changes of both hands with prominent Heberden's nodes especially left hand Ps Normal range of motion of both shoulders and elbows with no pain Negative rotator cuff provocative maneuvers bilaterally Results Reviewed Results Reviewed: Attending Dr: Reed Vazquez MD Ordering Physician: Reed Vazquez MD Date of Service: 09/13/23 Procedure(s): CT chest [facility] Res Accession Number(s): [id number] cc: REAL MEADOWS; Reed Vazquez MD~ EXAMINATION: CT CHEST WITHOUT CONTRAST CLINICAL INFORMATION: Interstitial pulmonary disease, unspecified. COMPARISON: Chest radiographs dated 09/16/2010. TECHNIQUE: Multidetector volumetric CT imaging of the chest was done. Axial MIP volume rendering provided. Sagittal and coronal reformatted images were obtained. This CT examination was performed using dose optimization techniques as appropriate, variously including the following: *Automated exposure control *Adjustment of mA and/or kV according to patient size (this includes techniques or standardized protocols for targeted exams where dose is matched to indication/reason for exam; i.e. extremities or head) *Use of iterative reconstruction technique DLP: 127 mGy-cm FINDINGS: FAMILY COURT REGISTRAR: The lungs are clear. There is mild elevation of the right hemidiaphragm. LUNGS: Within the anterior segment of the right upper lobe medially (6:82), a 3 mm noncalcified nodule is seen. Within the posterior segment of the right upper lobe (6:81), a 1 mm noncalcified nodule is seen. There are a few further bilateral scattered benign, calcified granulomas. There is no mass, infiltrate or groundglass opacity. There are mild bibasilar predominant subpleural linear and polygonal reticular markings. There is associated mild bibasilar bronchiectasis. There are mild, scattered bibasilar subpleural groundglass opacities. No honeycombing is noted. There is no generalized small airway thickening. The central airways appear patent. MEDIASTINUM: The mediastinum is normal. CORONARY ARTERY CALCIFICATION: None visualized on this study. PLEURA: There is no pleural effusion. No pleural mass or thickening. AXILLA: No lymphadenopathy. UPPER ABDOMEN: There is an incompletely included, simple appearing right renal upper pole cyst. The adrenal glands are unremarkable. OSSEOUS STRUCTURES: There is multi-level thoracic degenerative disc disease and spondylosis. No acute or aggressive osseous finding is noted. CT/CT chest wo con - High Res IMPRESSION: 1. There is mild to moderate chronic interstitial lung disease, with imaging features including increased subpleural reticular markings, scattered subpleural groundglass opacities and bronchiectasis. There is a bibasilar predominance, and no honeycombing is noted. These findings suggest possible nonspecific interstitial pneumonia (NSIP). 2. There are noncalcified and calcified pulmonary nodules, the largest noncalcified nodule situated within the right upper lobe measuring 3 mm. According to the UPDATED 2017 Fleischner Society recommendations, the advised follow-up imaging for solid nodules < 6 mm is: LOW RISK PATIENT: No routine follow-up. HIGH RISK PATIENT: Optional CT at 12 months. 3. No thoracic lymphadenopathy or pleural effusion is seen. 4. There are degenerative changes of the spine. No acute or aggressive osseous finding is noted. Fleischner guidelines were followed. Dictated By: Caleb Claire MD Assessment & Plan Assessment & Plan (1) Seropositive rheumatoid arthritis: Code(s): M05.9 - Rheumatoid arthritis with rheumatoid factor, unspecified Category: Medical Plan: Seropositive RA (RF+ CCP++). On Enbrel, her rheumatoid arthritis is well controlled Continue Enbrel 50 mg subQ weekly Labs before next visit in 4 months (2) Osteopenia: Comment: Alendronate 07/2023 Code(s): M85.80 - Other specified disorders of bone density and structure, unspecified site Category: Medical Qualifiers: Osteopenia location: multiple sites Qualified Code(s): M85.89 - Other specified disorders of bone density and structure, multiple sites Plan: No history of fractures. Osteopenia with high FRAX score. Continue with alendronate 70 mg weekly (3) Sjogren syndrome with inflammatory arthritis: Comment: +++SSa+++SSb Code(s): M35.05 - Sjogren syndrome with inflammatory arthritis Category: Medical Plan: Positive SSA and SSB in high titers. No Significant sicca symptoms. NSIP pattern HRCT. (4) Interstitial lung disease due to connective tissue disease: Code(s): J84.89 - Other specified interstitial pulmonary diseases; M35.9 - Systemic involvement of connective tissue, unspecified Category: Medical Plan: Underlying history of Sjogren's and seropositive RA. Not particularly symptomatic per patient. Still awaiting PFTs. She has a follow-up appointment with Pulmonary next month Plan I spent 46 minutes reviewing patient's chart, evaluating patient, ordering diagnostic workup, counseling patient and documenting in the chart Orders: Orders Complete Blood Count Auto Diff 4 Months M05.9 - Rheumatoid arthritis with rheumatoid factor, unspecified Erythrocyte Sedimentation Rate 4 Months M05.9 - Rheumatoid arthritis with rheumatoid factor, unspecified Comprehensive Met. Panel 4 Months M05.9 - Rheumatoid arthritis with rheumatoid factor, unspecified C Reactive Protein 4 Months M05.9 - Rheumatoid arthritis with rheumatoid factor, unspecified Coding Level of Care Code Est Pt Level 4 (68917) Complex EM visit Add On G2211 Diagnoses Seropositive rheumatoid arthritis M05.9 Osteopenia of multiple sites M85.89 Osteopenia location: multiple sites Sjogren syndrome with inflammatory arthritis M35.05 Interstitial lung disease due to connective tissue disease J84.89; M35.9
[2023-11-03 10:28] VITALS: BP 126/80; PULSE 74; O2SAT 99; BMI 28.7
== END 2023-11-03 10:48 | disposition home or self-care (01) ==
PROVIDERS: PCP Physician Assistant Medical; Visit Provider Student in an Organized Health Care Education/Training Program
DX: M05.79 Rheumatoid arthritis with rheumatoid factor of multiple sites without organ or systems involvement (principal); M85.89 Other specified disorders of bone density and structure, multiple sites; M35.05 Sjogren syndrome with inflammatory arthritis; J84.89 Other specified interstitial pulmonary diseases; M35.9 Systemic involvement of connective tissue, unspecified
CPT/HCPCS: 99214; G2211

== ENCOUNTER → 2023-11-03 10:20 | Outpatient (BNVA) | payer OTHER, SELFPAY | PROVIDERS: PCP Physician Assistant Medical; Visit Provider Student in an Organized Health Care Education/Training Program | DX: M05.9 Rheumatoid arthritis with rheumatoid factor, unspecified (principal); M85.89 Other specified disorders of bone density and structure, multiple sites; M35.05 Sjogren syndrome with inflammatory arthritis; J84.89 Other specified interstitial pulmonary diseases; M35.9 Systemic involvement of connective tissue, unspecified | CPT/HCPCS: 99212 ==

== ENCOUNTER → 2023-11-08 08:40 | Outpatient (REF) | payer OTHER, SELFPAY | LOC: HO.SL 08:40 | PROVIDERS: PCP Physician Assistant Medical; Visit Provider Nurse Practitioner Family | DX: G47.33 Obstructive sleep apnea (adult) (pediatric) (principal); R06.83 Snoring | CPT/HCPCS: 95806 ==

== ENCOUNTER → 2023-11-09 08:54 | Outpatient (BNV) | payer OTHER, SELFPAY | PROVIDERS: PCP Physician Assistant Medical; Visit Provider Internal Medicine | DX: G47.33 Obstructive sleep apnea (adult) (pediatric) (principal) | CPT/HCPCS: 95806 ==

== ENCOUNTER 2024-01-07 08:01 | Outpatient (REF) | payer OTHER, SELFPAY ==
--- NOTE | 2024-01-07 09:00 | PFT_ITS ---
Flows: FEV1: 126 % of predicted at 2.67 L FVC: 123 % of predicted at 3.34 L FEV1/FVC: 80 % Bronchodilator response: Absent Volumes: Total lung capacity: 96 % of predicted at 4.48 L Residual volume: 63 % of predicted at 1.13 L Slow vital capacity: 117 % of predicted at 3.36 L Expiratory reserve volume: 119 % of predicted at 0.80 L Diffusion capacity: Mildly decreased. Impression: No obstructive or restrictive ventilatory defect. No bronchodilator response. Isolated defect in diffusion capacity can suggest pulmonary edema or emphysema. Clinical correlation is advised. MTDD
== END 2024-01-07 08:02 | disposition home or self-care (01) ==
LOC: HO.RESP 08:01
PROVIDERS: PCP Physician Assistant Medical; Visit Provider Nurse Practitioner Family
DX: J84.9 Interstitial pulmonary disease, unspecified (principal); R06.02 Shortness of breath
CPT/HCPCS: 94010; 94640; 94727; 94729

== ENCOUNTER 2024-01-11 09:41 | Outpatient (AMB) | payer OTHER, SELFPAY ==
--- NOTE | 2024-01-11 09:44 | A.OFFVIS_ITS ---
Vital Signs 01/11/24 09:45 Height 4 ft 11 in Weight 137 lb BMI 27.7 BP 130/96 H Blood Pressure Location Rt brachial Position Sitting Pulse 78 Pulse Source Pulse Oximeter Pulse Oximetry (%) 98 Oxygen Delivery Method Room Air Intake Visit Reasons: ILD/Sleep Study & PFT Results Allergies Humira Pen Allergy (Intermediate, Uncoded 01/11/24 09:48) rash HPI HPI ILD/Sleep Study & PFT Results: Details: Daylin is a pleasant 68 year old female, never smoker, with underlying rheumatoid arthritis, sjogren's, hyperthyroidism, GERD and glaucoma. She was referred by rheumatology as prior chest CT revealed increased interstitial markings, suggestive of ILD. 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 Today she presents to review PFT and home sleep study results. At this time she denies any respiratory symptoms. [facility] Medical History (Updated 01/11/24 @ 11:25 by Lynne Nance NP) Cervical spondylosis with radiculopathy Seropositive rheumatoid arthritis Bilateral inguinal hernia Hyperthyroidism Hyperlipidemia Glaucoma Kidney stones GERD (gastroesophageal reflux disease) Chronic constipation Overlap syndrome Osteoarthritis Sjogrens syndrome Surgical History Hx of hernia repair Hx of tooth extraction Family History Father Intracranial aneurysm CVD (cardiovascular disease) Mother Liver cancer HTN (hypertension) Social History Household Members: None Housing: Apartment Alcohol intake: never Patient Tobacco Use Status: Never used Tobacco Review of Systems Const Denies chills, Denies excessive sweating, Denies fever(s), Denies headache(s) and Denies night sweats Eyes Denies irritation and Denies itchy eyes ENT Reports Normal hearing present, Denies headache(s), Denies nasal congestion, Denies nasal discharge, Denies post nasal drip and Denies sore throat Card Denies chest pain, Denies chest pain at rest, Denies chest pain with activity, Denies claudication, Denies leg edema, Denies dyspnea, Denies dyspnea on exertion, Denies orthopnea and Denies paroxysmal nocturnal dyspnea Resp Denies chest congestion, Denies cough, Denies excessive phlegm production, Denies pain on inspiration, Denies pain with cough, Denies dyspnea, Denies dyspnea on exertion, Denies stridor and Denies wheezing Musc Reports arthralgias and Reports joint swelling Neuro Reports Normal hearing present and Denies headache(s) Endo Denies excessive sweating New/Lymph Denies lymphadenopathy Aller/Immun Denies itchy eyes, Denies seasonal rhinorrhea and Denies wheezing Physical Exam Vital Signs: Last Vital Signs Pulse 78 01/11/24 09:45 BP 130/96 H 01/11/24 09:45 Pulse Ox 98 01/11/24 09:45 Oxygen Delivery Method Room Air 01/11/24 09:45 BMI result Body Mass Index 27.7 Const General: cooperative, healthy appearing, comfortable, no acute distress, well developed and alert Orientation/consciousness: patient oriented x3 Limitations: no limitations HEENT Head: Yes normal to inspection, Yes normocephalic and Yes atraumatic Ears: hearing grossly normal bilaterally and external ears normal Eyes General: appearance normal, both eyes and all related structures Eyelids: Yes eyelids normal Sclerae: sclerae normal EOM: EOMs intact bilaterally Neck Neck: Yes normal visual inspection and Yes no lymphadenopathy Lymphatic: no lymphadenopathy noted Chest Chest palpation & inspection: normal inspection of the chest Resp Other: bibasilar inspiratory crackles Effort & Inspection: normal respiratory effort, able to speak in complete sentences, no audible wheezes, no cough, no stridor, not tachypneic, no tripod positioning and no use of accessory muscles Cardio Jugular venous distension: no JVD Rate: regular rate Rhythm: regular rhythm Skin Other: warm, dry General skin exam: no rashes or lesions noted Neuro General: patient oriented x3 Cranial nerves: Yes Normal hearing present Cognition (Neuro): normal cognition Gait exam (Neuro): Normal gait present Extrem General: Yes normal to inspection, Yes capillary refill normal, Yes no clubbing, cyanosis or edema and Yes no pedal edema Psych Appearance: grossly normal and well kempt Speech and movement: Normal speech and movement present and Clear speech present Affect: normal affect Attitude: cooperative Thought process: Normal thought process present Thought content: Normal thought content present Insight: Good insight present (Psych) Judgement: Good judgement present (Psych) Assessment & Plan Assessment & Plan (1) Interstitial lung disease: Code(s): J84.9 - Interstitial pulmonary disease, unspecified Category: Medical (2) Sjogren syndrome with inflammatory arthritis: Comment: +++SSa+++SSb Code(s): M35.05 - Sjogren syndrome with inflammatory arthritis Category: Medical (3) Seropositive rheumatoid arthritis: Code(s): M05.9 - Rheumatoid arthritis with rheumatoid factor, unspecified Category: Medical (4) Multiple pulmonary nodules: Code(s): R91.8 - Other nonspecific abnormal finding of lung field Category: Medical (5) Severe obstructive sleep apnea: Code(s): G47.33 - Obstructive sleep apnea (adult) (pediatric) Category: Medical Plan Reviewed PFT which did not reveal an obstructive defect and there was no response to bronchodilators. TLC 96%, RV 65% and DLCO 72%. We had long discussion regarding PFT findings combined with chest CT findings, both suggestive of ILD. Discussed with patient trialing prednisone and repeat chest CT, however she would like wait atleast until August 2024 to obtain new chest CT. She feels her symptoms are well controlled and will call the office if they worsen. We discussed the possibility of progressive fibrosis, but was still adamant about waiting for chest CT and holding off on any prednisone. Reviewed sleep study results with patient which revealed an AHI of 34 with mild nocturnal hypoxemia for 20 minutes, lowest 79% . Since patient is quite symptomatic, will start CPAP therapy. Will send in prescription for APAP mode and pressure settings of 6-20 cm with close monitoring for compliance and benefits. Sleep hygiene education reviewed. She is aware if there are any issues with the mask or CPAP machine, she will call the office. All questions were answered and patient is in agreement of plan. Will follow up in 8 weeks. Coding Level of Care Code Est Pt Level 4 (59420) Diagnoses Interstitial lung disease J84.9 Sjogren syndrome with inflammatory arthritis M35.05 Seropositive rheumatoid arthritis M05.9 Multiple pulmonary nodules R91.8 Severe obstructive sleep apnea G47.33
[2024-01-11 09:45] VITALS: BP 130/96; PULSE 78; O2SAT 98; BMI 27.7
== END 2024-01-11 10:07 | disposition home or self-care (01) ==
PROVIDERS: PCP Physician Assistant Medical; Visit Provider Nurse Practitioner Family
DX: J84.9 Interstitial pulmonary disease, unspecified (principal); M35.05 Sjogren syndrome with inflammatory arthritis; M05.9 Rheumatoid arthritis with rheumatoid factor, unspecified; R91.8 Other nonspecific abnormal finding of lung field; G47.33 Obstructive sleep apnea (adult) (pediatric)
CPT/HCPCS: 99214

== ENCOUNTER → 2024-01-11 09:41 | Outpatient (BNVA) | payer OTHER, SELFPAY | PROVIDERS: PCP Physician Assistant Medical; Visit Provider Nurse Practitioner Family | DX: J84.9 Interstitial pulmonary disease, unspecified (principal); M35.05 Sjogren syndrome with inflammatory arthritis; M05.9 Rheumatoid arthritis with rheumatoid factor, unspecified; R91.8 Other nonspecific abnormal finding of lung field; G47.33 Obstructive sleep apnea (adult) (pediatric) | CPT/HCPCS: 99212 ==

== ENCOUNTER 2024-02-29 11:39 | Outpatient (REF) | payer OTHER, SELFPAY ==
[2024-02-29 12:17] LABS: MANUAL DIFF FLAG NO
[2024-02-29 12:28] LABS: Basophils Percent Auto 0.2 % (0-2); Eosinophils Absolute Auto 0.1 X10*3/uL (0.0-0.4); Eosinophils Percent Auto 1.1 % (0-4); Hematocrit 39.4 % (37.0-47.0); Hemoglobin 13.1 g/dl (12.0-16.0); Imm Gran Abs Auto 0.01 X10*3/uL (0.00-0.03); Imm Gran Pct Auto 0.2 % (0.0-0.4); Mean Corpuscular HGB Conc 33.2 g/dl (31.0-35.0); Mean Corpuscular Hemoglobin 28.6 pg (27.0-33.0); Mean Platelet Volume 10.4 fL (9.4-12.3); Monocytes Absolute Auto 0.4 X10*3/uL (0.1-1.2); Monocytes Percent Auto 7.6 % (2-11); Neutrophils Absolute Auto 2.4 x10*3/uL (2.0-8.3); Neutrophils Percent Auto 49.9 % (45-73); Platelet Count 206 X10*3/uL (160-400); Red Blood Count 4.58 X10*6/uL (4.20-5.50); Red Cell Distribution Width 13.6 % (11.0-16.0); White Blood Count 4.8 X10*3/uL (4.8-10.8)
[2024-02-29 13:01] LABS: Alanine Aminotransferase 20 U/L (0-31); Albumin Level 4.1 g/dL (3.5-5.0); Alkaline Phosphatase 62 U/L (39-117); Anion Gap 9 (12-20); Aspartate Amino Transferase 21 U/L (5-31); Bilirubin Total 0.6 mg/dL (0.0-1.0); Blood Urea Nitrogen 11 mg/dL (9-16); C Reactive Protein 0.39 mg/dL (< or = 0.50); Calcium 9.5 mg/dL (8.4-10.2); Carbon Dioxide 28 mmol/L (22-29); Chloride 107 mmol/L (96-108); Estimated Glomerular Filt Rate > 60; Glucose Random 89 mg/dL (60-115); Potassium 3.7 mmol/L (3.3-5.1); Sodium 140 mmol/L (135-145); Total Protein 8.1 g/dL (6.5-8.0)
[2024-02-29 13:12] LABS: Erythrocyte Sedimentation Rate 40 MM/HR (0-20)
== END 2024-02-29 11:40 | disposition home or self-care (01) ==
LOC: HO.LAB 11:39
PROVIDERS: PCP Physician Assistant Medical; Visit Provider Student in an Organized Health Care Education/Training Program
DX: M05.9 Rheumatoid arthritis with rheumatoid factor, unspecified (principal)
CPT/HCPCS: 36415; 80053; 85025; 85652; 86140

== ENCOUNTER 2024-03-06 09:52 | Outpatient (AMB) | payer OTHER, SELFPAY ==
--- NOTE | 2024-03-06 09:58 | MHC.OFFVIS ---
Vital Signs 03/06/24 10:01 Height 4 ft 11 in Weight 135 lb 2.294 oz BMI 27.3 BP 132/80 Blood Pressure Location Rt brachial Position Sitting Pulse 75 Pulse Source Pulse Oximeter Pulse Oximetry (%) 95 Oxygen Delivery Method Room Air Intake Visit Reasons: RA/Sjogren's Intake Note: Patient presents for RA/Sjogren's. Allergies Humira Pen Allergy (Intermediate, Uncoded 01/11/24 09:48) rash Medication List - Last Reconciled 03/06/24 by Reed Vazquez MD acetaminophen ER (Tylenol Arthritis Pain) 650 mg PO Q12H PRN alendronate 70 mg PO QWEEK azelastine intranasal chlorthalidone 25 mg PO BID clonidine HCl 0.1 mg PO BID Enbrel SureClick (etanercept) 50 mg subcut QWEEK NS lidocaine 5% 1 patch topical DAILY PRN loteprednol etabonate 0.5% drps ophthalmic (eye) multivitamin with folic acid 400 mcg (Daily-Mari (with folic acid)) tabs PO sennosides (senna) mg PO DAILY HPI Comments Details: 68-year-old female with seropositive RA and Sjogren's overlap returns for follow-up. She is on Enbrel 50 mg Q 10 days. She states that she is doing well overall. Only gets intermittent pain and swelling of her right index MCP. She also states that she gets intermittent ankle pain and swelling. She attributes it to her clonidine. She denies any cough or shortness of breath. She could not tolerate the CPAP machine [facility] Medical History Cervical spondylosis with radiculopathy Seropositive rheumatoid arthritis Bilateral inguinal hernia Hyperthyroidism Hyperlipidemia Glaucoma Kidney stones GERD (gastroesophageal reflux disease) Chronic constipation Overlap syndrome Osteoarthritis Sjogrens syndrome Surgical History Hx of hernia repair Hx of tooth extraction Family History Father Intracranial aneurysm CVD (cardiovascular disease) Mother Liver cancer HTN (hypertension) Social History Household Members: None Housing: Apartment Alcohol intake: never Patient Tobacco Use Status: Never used Tobacco Review of Systems Card Denies dyspnea Resp Denies cough and Denies dyspnea Musc Reports arthralgias and Reports joint swelling Physical Exam Vital Signs: Last Vital Signs Pulse 75 03/06/24 10:01 BP 132/80 03/06/24 10:01 Pulse Ox 95 03/06/24 10:01 Oxygen Delivery Method Room Air 03/06/24 10:01 BMI result Body Mass Index 27.3 Const General: cooperative, healthy appearing and comfortable Nutritional Appearance: overweight Orientation/consciousness: patient oriented x3 Limitations: no limitations HEENT Head: Yes normocephalic and Yes atraumatic Mouth: moist mucous membranes Resp Effort & Inspection: normal respiratory effort and able to speak in complete sentences Auscultation: crackles bilateral at the base Cardio Rate: regular rate Rhythm: regular rhythm Skin General skin exam: no rashes or lesions noted Neuro General: patient oriented x3 Extrem Other: Right 2nd MCP tenderness Osteoarthritic changes of both hands with prominent Heberden's nodes especially left hand Ps Normal range of motion of both shoulders and elbows with no pain Negative rotator cuff provocative maneuvers bilaterally Results Reviewed Results Reviewed: Attending Dr: Reed Vazquez MD Ordering Physician: Reed Vazquez MD Date of Service: 09/13/23 Procedure(s): CT chest [facility] Res Accession Number(s): [id number] cc: [employer]ADOWS; Reed Vazquez MD~ EXAMINATION: CT CHEST WITHOUT CONTRAST CLINICAL INFORMATION: Interstitial pulmonary disease, unspecified. COMPARISON: Chest radiographs dated 09/16/2010. TECHNIQUE: Multidetector volumetric CT imaging of the chest was done. Axial MIP volume rendering provided. Sagittal and coronal reformatted images were obtained. This CT examination was performed using dose optimization techniques as appropriate, variously including the following: *Automated exposure control *Adjustment of mA and/or kV according to patient size (this includes techniques or standardized protocols for targeted exams where dose is matched to indication/reason for exam; i.e. extremities or head) *Use of iterative reconstruction technique DLP: 127 mGy-cm FINDINGS: CHAPLAINCY: The lungs are clear. There is mild elevation of the right hemidiaphragm. LUNGS: Within the anterior segment of the right upper lobe medially (6:82), a 3 mm noncalcified nodule is seen. Within the posterior segment of the right upper lobe (6:81), a 1 mm noncalcified nodule is seen. There are a few further bilateral scattered benign, calcified granulomas. There is no mass, infiltrate or groundglass opacity. There are mild bibasilar predominant subpleural linear and polygonal reticular markings. There is associated mild bibasilar bronchiectasis. There are mild, scattered bibasilar subpleural groundglass opacities. No honeycombing is noted. There is no generalized small airway thickening. The central airways appear patent. MEDIASTINUM: The mediastinum is normal. CORONARY ARTERY CALCIFICATION: None visualized on this study. PLEURA: There is no pleural effusion. No pleural mass or thickening. AXILLA: No lymphadenopathy. UPPER ABDOMEN: There is an incompletely included, simple appearing right renal upper pole cyst. The adrenal glands are unremarkable. OSSEOUS STRUCTURES: There is multi-level thoracic degenerative disc disease and spondylosis. No acute or aggressive osseous finding is noted. CT/CT chest wo con - High Res IMPRESSION: 1. There is mild to moderate chronic interstitial lung disease, with imaging features including increased subpleural reticular markings, scattered subpleural groundglass opacities and bronchiectasis. There is a bibasilar predominance, and no honeycombing is noted. These findings suggest possible nonspecific interstitial pneumonia (NSIP). 2. There are noncalcified and calcified pulmonary nodules, the largest noncalcified nodule situated within the right upper lobe measuring 3 mm. According to the UPDATED 2017 Fleischner Society recommendations, the advised follow-up imaging for solid nodules < 6 mm is: LOW RISK PATIENT: No routine follow-up. HIGH RISK PATIENT: Optional CT at 12 months. 3. No thoracic lymphadenopathy or pleural effusion is seen. 4. There are degenerative changes of the spine. No acute or aggressive osseous finding is noted. Fleischner guidelines were followed. Dictated By: Caleb Claire MD Assessment & Plan Assessment & Plan (1) Seropositive rheumatoid arthritis: Code(s): M05.9 - Rheumatoid arthritis with rheumatoid factor, unspecified Category: Medical Plan: Seropositive RA (RF+ CCP++). On Enbrel to 10 days, her rheumatoid arthritis is well controlled Patient would like to discontinue her Enbrel if possible. Advised patient that there is high-risk of a flare if she completely discontinued her Enbrel. Advised patient to space out her Enbrel to 50 mg Q 14 days Labs before next visit in 3 months (2) Osteopenia: Comment: Alendronate 07/2023 Code(s): M85.80 - Other specified disorders of bone density and structure, unspecified site Category: Medical Qualifiers: Osteopenia location: multiple sites Qualified Code(s): M85.89 - Other specified disorders of bone density and structure, multiple sites Plan: No history of fractures. Osteopenia with high FRAX score. Continue with alendronate 70 mg weekly (3) Sjogren syndrome with inflammatory arthritis: Comment: +++SSa+++SSb Code(s): M35.05 - Sjogren syndrome with inflammatory arthritis Category: Medical Plan: Positive SSA and SSB in high titers. No Significant sicca symptoms. NSIP pattern HRCT. (4) Interstitial lung disease due to connective tissue disease: Code(s): J84.89 - Other specified interstitial pulmonary diseases; M35.9 - Systemic involvement of connective tissue, unspecified Category: Medical Plan: Underlying history of Sjogren's and seropositive RA. Not particularly symptomatic per patient. PFTs showed normal TLC but reduced DLCO. Prednisone was suggested by Pulmonary and patient not want to proceed with that. Patient will get a repeat CT chest serum. Will continue to monitor her PFTs and CT chest, if worsening, we can consider changing DMARDs, can consider tocilizumab (5) High risk medication use: Code(s): Z79.899 - Other mcfp (current) drug therapy Category: Medical Plan: Side effects of Enbrel were discussed with the patient in detail including increased risk of infection, demyelinating disease, reactivation of latent TB, possible increased risk of solid and skin tumors. Patient fully aware. Advised patient to seek medical care RICHAR if patient has an infection and advised patient to stop the medication until the infection is resolved. Plan I spent 46 minutes reviewing patient's chart, evaluating patient, ordering diagnostic workup, counseling patient and documenting in the chart Coding Level of Care Code Est Pt Level 5 (01053) Complex EM visit Add On G2211 Diagnoses Seropositive rheumatoid arthritis M05.9 Osteopenia of multiple sites M85.89 Osteopenia location: multiple sites Sjogren syndrome with inflammatory arthritis M35.05 Interstitial lung disease due to connective tissue disease J84.89; M35.9 High risk medication use Z79.89
[2024-03-06 10:01] VITALS: BP 132/80; PULSE 75; O2SAT 95; BMI 27.3
== END 2024-03-06 10:37 | disposition home or self-care (01) ==
PROVIDERS: PCP Physician Assistant Medical; Visit Provider Student in an Organized Health Care Education/Training Program
DX: M05.79 Rheumatoid arthritis with rheumatoid factor of multiple sites without organ or systems involvement (principal); M85.89 Other specified disorders of bone density and structure, multiple sites; M35.05 Sjogren syndrome with inflammatory arthritis; J84.89 Other specified interstitial pulmonary diseases; M35.89 Other specified systemic involvement of connective tissue; Z79.899 Other long term (current) drug therapy
CPT/HCPCS: 99215; G2211

== ENCOUNTER → 2024-03-06 09:52 | Outpatient (BNVA) | payer OTHER, SELFPAY | PROVIDERS: PCP Physician Assistant Medical; Visit Provider Student in an Organized Health Care Education/Training Program | DX: M05.9 Rheumatoid arthritis with rheumatoid factor, unspecified (principal); M85.89 Other specified disorders of bone density and structure, multiple sites; M35.05 Sjogren syndrome with inflammatory arthritis; M35.9 Systemic involvement of connective tissue, unspecified; J84.89 Other specified interstitial pulmonary diseases; Z79.899 Other long term (current) drug therapy | CPT/HCPCS: 99212 ==

== ENCOUNTER 2024-03-20 10:07 | Outpatient (AMB) | payer OTHER, SELFPAY ==
--- NOTE | 2024-03-20 10:17 | A.OFFVIS_ITS ---
Vital Signs 03/20/24 10:18 Height 4 ft 11 in Weight 135 lb 6 oz BMI 27.3 BP 166/92 H Blood Pressure Location Rt brachial Position Sitting Pulse 70 Pulse Source Pulse Oximeter Pulse Oximetry (%) 100 Oxygen Delivery Method Room Air Intake Visit Reasons: ILD/CPAP Allergies Humira Pen Allergy (Intermediate, Uncoded 03/20/24 10:20) rash HPI HPI ILD/CPAP: Details: Daylin is a pleasant 68 year old female, never smoker, with underlying rheumatoid arthritis on Enbrel, sjogren's, hyperthyroidism, GERD and glaucoma. She was referred by rheumatology as prior chest CT revealed increased interstitial markings, suggestive of ILD. We had previously discussed trialing prednisone however patient reports minimal repsiratory symptoms and declined. She was started on CPAP therapy for severe YEN with mild nocturnal hypoxemia and presents today to review compliance. She reports significant disruptions in sleep while attempting to use, despite reporting overall comfort with mask. [facility] Medical History Cervical spondylosis with radiculopathy Seropositive rheumatoid arthritis Bilateral inguinal hernia Hyperthyroidism Hyperlipidemia Glaucoma Kidney stones GERD (gastroesophageal reflux disease) Chronic constipation Overlap syndrome Osteoarthritis Sjogrens syndrome Surgical History Hx of hernia repair Hx of tooth extraction Family History Father Intracranial aneurysm CVD (cardiovascular disease) Mother Liver cancer HTN (hypertension) Social History Household Members: None Housing: Apartment Alcohol intake: never Patient Tobacco Use Status: Never used Tobacco Review of Systems Const Denies chills, Denies excessive sweating, Denies fever(s), Denies headache(s) and Denies night sweats Eyes Denies irritation and Denies itchy eyes ENT Reports Normal hearing present, Denies headache(s), Denies nasal congestion, Denies nasal discharge, Denies post nasal drip and Denies sore throat Card Denies chest pain, Denies chest pain at rest, Denies chest pain with activity, Denies claudication, Denies leg edema, Denies dyspnea, Denies dyspnea on exertion, Denies orthopnea and Denies paroxysmal nocturnal dyspnea Resp Denies chest congestion, Denies cough, Denies excessive phlegm production, Denies pain on inspiration, Denies pain with cough, Denies dyspnea, Denies dyspnea on exertion, Denies stridor and Denies wheezing Musc Reports arthralgias and Reports joint swelling Neuro Reports Normal hearing present and Denies headache(s) Endo Denies excessive sweating New/Lymph Denies lymphadenopathy Aller/Immun Denies itchy eyes, Denies seasonal rhinorrhea and Denies wheezing Physical Exam Vital Signs: Last Vital Signs Pulse 70 03/20/24 10:18 BP 166/92 H 03/20/24 10:18 Pulse Ox 100 03/20/24 10:18 Oxygen Delivery Method Room Air 03/20/24 10:18 BMI result Body Mass Index 27.3 Const General: cooperative, healthy appearing, comfortable, no acute distress, well developed and alert Orientation/consciousness: patient oriented x3 Limitations: no limitations HEENT Head: Yes normal to inspection, Yes normocephalic and Yes atraumatic Ears: hearing grossly normal bilaterally and external ears normal Eyes General: appearance normal, both eyes and all related structures Eyelids: Yes eyelids normal Sclerae: sclerae normal EOM: EOMs intact bilaterally Neck Neck: Yes normal visual inspection and Yes no lymphadenopathy Lymphatic: no lymphadenopathy noted Chest Chest palpation & inspection: normal inspection of the chest Resp Other: bibasilar inspiratory crackles Effort & Inspection: normal respiratory effort, able to speak in complete sentences, no audible wheezes, no cough, no stridor, not tachypneic, no tripod positioning and no use of accessory muscles Cardio Jugular venous distension: no JVD Rate: regular rate Rhythm: regular rhythm Skin Other: warm, dry General skin exam: no rashes or lesions noted Neuro General: patient oriented x3 Cranial nerves: Yes Normal hearing present Cognition (Neuro): normal cognition Gait exam (Neuro): Normal gait present Extrem General: Yes normal to inspection, Yes capillary refill normal, Yes no clubbing, cyanosis or edema and Yes no pedal edema Psych Appearance: grossly normal and well kempt Speech and movement: Normal speech and movement present and Clear speech present Affect: normal affect Attitude: cooperative Thought process: Normal thought process present Thought content: Normal thought content present Insight: Good insight present (Psych) Judgement: Good judgement present (Psych) Assessment & Plan Assessment & Plan (1) Interstitial lung disease: Code(s): J84.9 - Interstitial pulmonary disease, unspecified Category: Medical (2) Sjogren syndrome with inflammatory arthritis: Comment: +++SSa+++SSb Code(s): M35.05 - Sjogren syndrome with inflammatory arthritis Category: Medical (3) Seropositive rheumatoid arthritis: Code(s): M05.9 - Rheumatoid arthritis with rheumatoid factor, unspecified Category: Medical (4) Multiple pulmonary nodules: Code(s): R91.8 - Other nonspecific abnormal finding of lung field Category: Medical (5) Severe obstructive sleep apnea: Code(s): G47.33 - Obstructive sleep apnea (adult) (pediatric) Category: Medical Plan We again had long discussion regarding PFT findings combined with chest CT findings, both suggestive of ILD. Discussed with patient trialing prednisone and repeat chest CT, however she continues to defer despite possible adverse effects of worsening ILD process. She declines respiratory symptoms at this time. She was agreeable to repeat chest CT however she would like to wait until August 2024. Prior PSG revealed severe YEN and CPAP therapy was ordered. She attempted to use but can not tolerate and is not interested in trialing lower pressures/different mask to improve compliance. Discussed potential effects of untreated YEN. If she would like to attempt in the future she will call the office. All questions were answered and patient is in agreement of plan. Will follow up in 6 months or sooner if needed. Orders: Orders CT chest wo IV con 6 Months J84.89 - Other specified interstitial pulmonary diseases, M35.9 - Systemic involvement of connective tissue, unspecified, R91.8 - Other nonspecific abnormal finding of lung field Coding Level of Care Code Est Pt Level 4 (95128) Diagnoses Interstitial lung disease J84.9 Sjogren syndrome with inflammatory arthritis M35.05 Seropositive rheumatoid arthritis M05.9 Multiple pulmonary nodules R91.8 Severe obstructive sleep apnea G47.33
[2024-03-20 10:18] VITALS: BP 166/92; PULSE 70; O2SAT 100; BMI 27.3
== END 2024-03-20 11:00 | disposition home or self-care (01) ==
LOC: HO.HPSW 10:07
PROVIDERS: PCP Physician Assistant Medical; Visit Provider Nurse Practitioner Family
DX: J84.9 Interstitial pulmonary disease, unspecified (principal); M35.05 Sjogren syndrome with inflammatory arthritis; M05.9 Rheumatoid arthritis with rheumatoid factor, unspecified; R91.8 Other nonspecific abnormal finding of lung field; G47.33 Obstructive sleep apnea (adult) (pediatric)
CPT/HCPCS: 99214

== ENCOUNTER → 2024-03-20 10:07 | Outpatient (BNVA) | payer OTHER, SELFPAY | PROVIDERS: PCP Physician Assistant Medical; Visit Provider Nurse Practitioner Family | DX: J84.9 Interstitial pulmonary disease, unspecified (principal); G47.33 Obstructive sleep apnea (adult) (pediatric); R09.02 Hypoxemia; R91.8 Other nonspecific abnormal finding of lung field; M35.05 Sjogren syndrome with inflammatory arthritis; M05.9 Rheumatoid arthritis with rheumatoid factor, unspecified; M35.9 Systemic involvement of connective tissue, unspecified; Z99.89 Dependence on other enabling machines and devices | CPT/HCPCS: 99212 ==

== ENCOUNTER 2024-05-31 08:12 | Outpatient (AMB) | payer OTHER, SELFPAY ==
--- NOTE | 2024-05-31 08:14 | MHC.OFFVIS ---
Vital Signs 05/31/24 08:15 Height 4 ft 11 in Weight 135 lb 12.876 oz BMI 27.4 BP 130/72 Blood Pressure Location Rt brachial Position Sitting Pulse 73 Pulse Source Pulse Oximeter Intake Visit Reasons: Sjogren's/RA Intake Note: Patient last seen by Doctor Reed Vazquez on 03/06/24. Presents today for Sjogren's/RA follow up. Mercerizer Machine Operator Required: No Accompanied by: Self / Same As Patient Allergies Humira Pen Allergy (Intermediate, Uncoded 05/31/24 08:17) rash Medication List - Last Reconciled 05/31/24 by Reed Vazquez MD acetaminophen ER (Tylenol Arthritis Pain) 650 mg PO Q12H PRN alendronate 70 mg PO QWEEK azelastine intranasal chlorthalidone 25 mg PO BID clonidine HCl 0.1 mg PO BID Enbrel SureClick (etanercept) 50 mg subcut QWEEK NS lidocaine 5% 1 patch topical DAILY PRN loteprednol etabonate 0.5% drps ophthalmic (eye) multivitamin with folic acid 400 mcg (Daily-Mari (with folic acid)) tabs PO sennosides (senna) mg PO DAILY HPI Comments Details: 68-year-old female with seropositive RA and Sjogren's overlap returns for follow-up. She states that in March she was doing the Enbrel every 14 days, she was having more joint pains so she has been doing it every 10 days over the last month. She is doing better now. She states that she has been having bilateral jaw pain with opening and closing her mouth, she also gets intermittent pain on the ulnar aspect of her right hand especially with writing. She denies any cough or shortness of breath. [facility] Medical History Cervical spondylosis with radiculopathy Seropositive rheumatoid arthritis Bilateral inguinal hernia Hyperthyroidism Hyperlipidemia Glaucoma Kidney stones GERD (gastroesophageal reflux disease) Chronic constipation Overlap syndrome Osteoarthritis Sjogrens syndrome Surgical History Hx of hernia repair Hx of tooth extraction Family History Father Intracranial aneurysm CVD (cardiovascular disease) Mother Liver cancer HTN (hypertension) Social History Household Members: None Housing: Apartment Alcohol intake: never Patient Tobacco Use Status: Never used Tobacco Review of Systems ENT Details: Jaw pain Card Denies dyspnea Resp Denies cough and Denies dyspnea Musc Reports arthralgias and Denies joint swelling Physical Exam Vital Signs: Last Vital Signs Pulse 73 05/31/24 08:15 BP 130/72 05/31/24 08:15 BMI result Body Mass Index 27.4 Const General: cooperative, healthy appearing and comfortable Nutritional Appearance: overweight Orientation/consciousness: patient oriented x3 Limitations: no limitations HEENT Other: Bilateral TMJ crepitus Head: Yes normocephalic and Yes atraumatic Mouth: moist mucous membranes Resp Effort & Inspection: normal respiratory effort and able to speak in complete sentences Auscultation: crackles bilateral at the base Cardio Rate: regular rate Rhythm: regular rhythm Skin General skin exam: no rashes or lesions noted Neuro General: patient oriented x3 Extrem Other: Mild Right 5th extensor tendon tenderness No swollen joints noted Osteoarthritic changes of both hands with prominent Heberden's nodes especially left hand Ps Normal range of motion of both shoulders and elbows with no pain Negative rotator cuff provocative maneuvers bilaterally Assessment & Plan Assessment & Plan (1) Seropositive rheumatoid arthritis: Code(s): M05.9 - Rheumatoid arthritis with rheumatoid factor, unspecified Category: Medical Plan: Seropositive RA (RF+ CCP++). Has been having bilateral TMJ pain, this has improved when she did her Enbrel injection every 10 days compared to every 14 days. Doing well otherwise. Advised patient to do the Enbrel injection every week for a month then go back to every 10 days. Labs before next visit in 4 months (2) Osteopenia: Comment: Alendronate 07/2023 Code(s): M85.80 - Other specified disorders of bone density and structure, unspecified site Category: Medical Qualifiers: Osteopenia location: multiple sites Qualified Code(s): M85.89 - Other specified disorders of bone density and structure, multiple sites Plan: No history of fractures. Osteopenia with high FRAX score. Continue with alendronate 70 mg weekly (3) Sjogren syndrome with inflammatory arthritis: Comment: +++SSa+++SSb Code(s): M35.05 - Sjogren syndrome with inflammatory arthritis Category: Medical Plan: Positive SSA and SSB in high titers. No Significant sicca symptoms. NSIP pattern HRCT. (4) Interstitial lung disease due to connective tissue disease: Code(s): J84.89 - Other specified interstitial pulmonary diseases; M35.9 - Systemic involvement of connective tissue, unspecified Category: Medical Plan: Underlying history of Sjogren's and seropositive RA. Not particularly symptomatic per patient. PFTs showed normal TLC but reduced DLCO. Prednisone was suggested by Pulmonary and patient not want to proceed with that. Patient will get a repeat CT chest for monitoring Will continue to monitor her PFTs and CT chest, if worsening, we can consider changing DMARDs, can consider tocilizumab She was also found to have a significant obstructive sleep apnea but she does not want to use the CPAP machine (5) High risk medication use: Code(s): Z79.899 - Other equipment operator intermodal yard (current) drug therapy Category: Medical Plan: Side effects of Enbrel were discussed with the patient in detail including increased risk of infection, demyelinating disease, reactivation of latent TB, possible increased risk of solid and skin tumors. Patient fully aware. Advised patient to seek medical care RICHAR if patient has an infection and advised patient to stop the medication until the infection is resolved. Plan I spent 26 minutes reviewing patient's chart, evaluating patient, ordering diagnostic workup, counseling patient and documenting in the chart Orders: Orders Complete Blood Count Auto Diff 4 Months M35.05 - Sjogren syndrome with inflammatory arthritis C Reactive Protein 4 Months M35.05 - Sjogren syndrome with inflammatory arthritis Erythrocyte Sedimentation Rate 4 Months M35.05 - Sjogren syndrome with inflammatory arthritis T Spot TB 4 Months Z11.7 - Encounter for testing for latent tuberculosis infection Comprehensive Met. Panel 4 Months M35.05 - Sjogren syndrome with inflammatory arthritis Hepatitis A,B,C Profile 4 Months Z11.59 - Encounter for screening for other viral diseases Medications: Changed From alendronate 70 mg PO QWEEK 12 tabs 1RF To alendronate Take 1 tab once weekly, 1st thing in the morning, on an empty stomach, with a large glass of water (at least 6 oz) and stay upright for 30 minutes 70 mg PO QWEEK 12 tabs 1RF Coding Level of Care Code Est Pt Level 5 (22215) Complex EM visit Add On G2211 Diagnoses Seropositive rheumatoid arthritis M05.9 Osteopenia of multiple sites M85.89 Osteopenia location: multiple sites Sjogren syndrome with inflammatory arthritis M35.05 Interstitial lung disease due to connective tissue disease J84.89; M35.9 High risk medication use Z79.893
[2024-05-31 08:15] VITALS: BP 130/72; PULSE 73; BMI 27.4
== END 2024-05-31 08:41 | disposition home or self-care (01) ==
PROVIDERS: PCP Physician Assistant Medical; Visit Provider Student in an Organized Health Care Education/Training Program
DX: M05.79 Rheumatoid arthritis with rheumatoid factor of multiple sites without organ or systems involvement (principal); M85.89 Other specified disorders of bone density and structure, multiple sites; M35.05 Sjogren syndrome with inflammatory arthritis; J84.89 Other specified interstitial pulmonary diseases; M35.9 Systemic involvement of connective tissue, unspecified; Z79.899 Other long term (current) drug therapy
CPT/HCPCS: 99214; G2211

== ENCOUNTER → 2024-05-31 08:12 | Outpatient (BNVA) | payer OTHER, SELFPAY | PROVIDERS: PCP Physician Assistant Medical; Visit Provider Student in an Organized Health Care Education/Training Program | DX: M05.9 Rheumatoid arthritis with rheumatoid factor, unspecified (principal); M35.05 Sjogren syndrome with inflammatory arthritis; M35.9 Systemic involvement of connective tissue, unspecified; M85.89 Other specified disorders of bone density and structure, multiple sites; J84.89 Other specified interstitial pulmonary diseases; Z79.899 Other long term (current) drug therapy | CPT/HCPCS: 99212 ==

== ENCOUNTER 2024-09-13 14:52 | Outpatient (REF) | payer OTHER, SELFPAY ==
--- NOTE | ~2024-09-13 | CT_ITS ---
CLINICAL HISTORY: J84.89 - Other specified interstitial pulmonary diseases CT chest without contrast Comparison: CT/DC/SR - CT CHEST WO CON - HIGH RES - 09/13/23 07:40 EDT Findings: The heart size is normal. The visualized thyroid and mediastinum are unremarkable. Stable 2 mm nodule of the right upper lobe series 6, image 92. Stable 2 mm nodule of the right middle lobe image 110. Stable lower lobe dominant subpleural ground-glass and reticular opacities with mild bronchiectasis. Limited evaluation of the renal cyst. No acute fractures. IMPRESSION: Stable lower lobe dominant mild interstitial pulmonary fibrosis without honeycombing. Stable small pulmonary nodules. Fleischner Society 2017 Guidelines for incidentally detected indeterminate nodules in persons 35 years of age or older. Single Solid Nodules: 5 mm or smaller nodules need no follow-up in low risk, and [address] follow-up is optional in high risk patients. 6-8 mm nodules have optional [address] follow-up in low risk, and 6-[address] follow-up followed by 18-[address] follow-up if no change in high risk patients. 9 mm or larger nodules should consider CT, PET/CT, or biopsy at 3 months regardless of patient risk. Multiple Solid Nodules: 5 mm or smaller nodules need no follow-up in low risk, and [address] follow-up is optional in high risk patients. 6-8 mm nodules need 3-[address] follow-up followed by an optional 18-[address] follow-up regardless of patient risk. 9 mm or larger nodules should consider 3-[address] follow-up. For low risk 18-24 month follow-up is optional, whereas for high risk it is needed. Single Ground Glass Nodules: 5 mm or smaller nodules need no followup 6 mm and larger nodules need CT at 6-12 months to confirm persistence, then CT every 2 years until 5 years Single Subsolid Nodules: 5 mm or smaller nodules need no followup 6 mm and larger nodules need CT at 3-6 months to confirm persistence. If no change and solid component /T/lt;6 mm, then CT every year until 5 years Multiple Ground Glass or Subsolid Nodules: 5 mm or smaller nodules need CT at 3-6 months. If stable, optional CT at 2 and 4 years. 6 mm or larger nodules need CT at 3-6 months. Subsequent management based on most suspicious nodule This document has been electronically signed by: Jodee Mcmillan MD on 09/14/2024 13:49:08
--- OUTSIDE RECORDS SUMMARY | 2024-09-13 17:36 | XMS_ITS | Clinical Summary ---
Author Organization [facility] Address [address] [place] [address] Care Team Providers Care Child Protection Specialist Name Role Phone Unavailable Primary Care Provider Unavailabl e Allergies Active Allergy Reactions Criticality Noted Date Comments Adalimumab Rash Low 03/04/2020 Medications Enbrel SureClick 50 MG/ML injection 03/31/2022 Active candesartan-hydr oCHLOROthiazide (Atacand HCT) 32-12.5 MG tablet 04/02/2022 Active Arthritis Pain Relief 650 MG ER tablet TAKE 1 CAP BY MOUTH EVERY 12 HOURS 07/24/2021 Active amLODIPine (Norvasc) 2.5 MG tablet Take 5 mg by mouth in the morning. Active Social History Tobacco Use Types Packs/Day Years Used Date Smoking Tobacco: Never Smokeless Tobacco: Never Tobacco Cessation:Counseling Given: Not Answered Comments Unknown Sex and Gender Information Value Date Recorded Sex Assigned at Female 03/22/2022 10:24 AM EDT Legal Sex Female 10:24 AM EDT Gender Identity Choose not to disclose 10:24 AM EDT Sexual Orientation Choose not to disclose 2021 10:24 AM EDT Last Filed Vital Signs Vital Sign Reading Time Taken Comments Blood Pressure 168/102 02/22/2024 10:47 AM EDT L arm Pulse 71 02/22/2024 10:15 AM EDT Temperature - - Respiratory Rate - - Oxygen Saturation - - Inhaled Oxygen Concentration - - Weight - - Height - - Body Mass Index - - Plan of Treatment Health Maintenance Due Date Last Done Comments CT Colonography 1955 Colonoscopy 1955 Colorectal Cancer Screening 1955 Dental X-Ray: Full Mouth 1955 Depression Screening 1955 FIT DNA/Cologuard 1955 FIT 1955 FOBT 1955 Lipid Panel 1955 SDOH Screening 1955 Sigmoidoscopy 1955 Alcohol/Substance Use Screening 1967 Hepatitis C Screening 1973 DTaP/Tdap/Td Vaccines (1 - Tdap) 1974 Mammogram 1995 Pneumococcal Vaccine: 50+ Years (1 of 1 - PCV) 2005 Zoster Vaccines (1 of 2) 2005 COVID-19 Vaccine (1 - 2023- season) 2024 Influenza Vaccine (#1) 2024 Dental X-Ray: Bitewings 08/18/2024 08/18/2023, 05/26 Dental Oral Exam 08/23/2024 02/22/2024, , 05/26/2022 Dental Prophylaxis 08/23/2024 02/22/2024, 0 08/18/2023, 08/23/2022, Additional history exists Tobacco Screening 02/21/2025 02/22/2024 RSV Patients and Patients Aged 60 years or older (1 - 1-dose 75+ series) 2030 HIB Vaccines Aged Out No longer eligi ble based on patient's age to complete this topic HPV Vaccines Aged Out No longer eligi ble based on patient's age to complete this topic Hepatitis A Vaccines Aged Out No long er eligible based on patient's age to complete this topic Hepatitis B Vaccines Aged Out No long er eligible based on patient's age to complete this topic IPV Vaccines Aged Out No longer eligi ble based on patient's age to complete this topic Meningococcal Vaccine Aged Out No rosibel sp eligible based on patient's age to complete this topic RSV under 20 months Aged Out No longe r eligible based on patient's age to complete this topic Rotavirus Vaccines Aged Out No longer eligible based on patient's age to complete this topic Procedures Procedure Name Priority Date/Time Associated Diagnosis Comments PROPHYLAXIS - ADULT Routine 02/22/2024 1 0:00 AM EDT PERIODIC ORAL EVALUATION - ESTABLISHED PATIENT Routine 02/22/2024 10:00 AM EDT BITEWINGS - 4 RADIOGRAPHIC IMAGES Routine 08/18/2023 9:00 AM EDT from Last 3 Months or Most Recently Relevant to Health Maintenance Insurance DENTAL - [facility] * Guarantor: Daylin Reyna Account Type Relation to Patient Date of Phone Billing Address Personal/Family Self [address] [place] [phone] * Guarantor: Daylin Reyna Account Type Relation to Patient Date of Phone Billing Address Personal/Family Self [address] [place] [address] * Guarantor: Daylin Reyna Account Type Relation to Patient Date of Phone Billing Address Personal/Family Self [address] [place] [id number]
--- OUTSIDE RECORDS SUMMARY | 2024-09-13 17:36 | XMS_ITS | Encounter Summary ---
Author Organization [facility] Address [address] [place] [address] Care Team Providers Care Control Room Agent Name Role Phone Harshad Suarez MD Primary Care Provider Unava ilable Encounter Details Date Type Department Care Team Description 03/12/2020 Orders Only Medical Records [address] [place] [address] Krystian Rios MD [address] [place] [address] Social History Tobacco Use Types Packs/Day Years Used Date Smoking Tobacco: Never Assessed Sex Assigned at Date Recorded Not on file COVID-19 Exposure Response Date Recorded In the last month, have you been in contact with someone who was confirmed or suspected to have Coronavirus / COVID-19? No / Unsure 03/04/2020 10:47 AM EDT documented as of this encounter Progress Notes * Jenae Rios MD - 03/18/2020 8:16 PM EDT Dear Daylin, The gastric biopsies taken during the endoscopy show mild inflammation which may have been caused by irritants. These irritants are such as gastric acid, bile, nonsteroidal medications example ibuprofen, Aleve, caffeine, nicotine or alcohol. Please try to avoid these irritants as much as possible. You may also use an bkha-qzk-bhmplcx acid reducing agent such as Zantac or Pepcid, Tums, omeprazole etc. when necessary. Please follow up in order to discuss these findings with the referring physician at [facility] gastroenterology clinic. I would like to personally thank you for allowing us to take care of you. Please don't hesitate to call us for any questions or concerns. Regards, Parminder Rios MD Board Certified Gastroenterology and Internal Medicine Transplant Hepatology [facility] documented in this encounter Plan of Treatment Not on file documented as of this encounter Procedures Procedure Name Priority Date/Time Associated Diagnosis Comments OUTSIDE PATHOLOGY Routine 03/10/2020 documented in this encounter Results * OUTSIDE PATHOLOGY (03/10/2020) H Gabino Rios MD OUTSIDE LAB documented in this encounter Visit Diagnoses Not on filedocumented in this encounter Care Teams Control Room Agent Relationship Specialty Start Date End Date Harshad Suarez MD PCP - General Internal Medicine 02/26/20 documented as of this encounter
--- OUTSIDE RECORDS SUMMARY | 2024-09-13 17:36 | XMS_ITS | Clinical Summary ---
Author Organization [facility] Address [address] [place] [address] Care Team Providers Care Organ Tuner Name Role Phone Harshad Suarez MD Primary Care Provider [phone] Social History Tobacco Use Types Packs/Day Years Used Date Smoking Tobacco: Never Assessed Sex and Gender Information Value Date Recorded Sex Assigned at Not on file Gender Identity Not on file Sexual Orientation Not on file Plan of Treatment Health Maintenance Due Date Last Done Comments Hepatitis C Screening 1955 COVID-19 Vaccine (#1) 1955 Depression Screening 1967 Preventative Health Evaluation 1973 DTap / Tdap / Td (1 - Tdap) 1974 Colon Cancer Screening (Colonoscopy) 2000 Breast Cancer Screening (Mammogram) 2005 Shingrix-Zoster Vaccine (1 of 2) 2005 Fall Risk Assessment 2020 Osteoporosis Screening (DEXA Scan) 2020 Pneumococcal Vaccine (1 of 1 - PCV) 2020 Influenza Vaccine (#1) 2024 RSV Adult > 60+ Yrs or Pregn ant (1 - 1-dose 75+ series) 2030 Hepatitis B Vaccines Aged Out No long er eligible based on patient's age to complete this topic RSV Ped < 20 months Aged Out No longe r eligible based on patient's age to complete this topic Care Teams Organ Tuner Relationship Specialty Start Date End Date Harshad Suarez MD [address] [place] [id number] PCP - General Geriatric Medicine 04/23/20
--- OUTSIDE RECORDS SUMMARY | 2024-09-13 17:36 | XMS_ITS | Encounter Summary ---
Author Organization [facility] Address [address] [place] [address] Care Team Providers Care Air Compressor Operator Name Role Phone Harshad Suarez MD Primary Care Provider Unava ilable Encounter Details Date Type Department Care Team Description 03/10/2020 Hospital Medical Records [address] [place] [address] Krystian Rios MD [address] [place] [address] Social History Tobacco Use Types Packs/Day Years Used Date Smoking Tobacco: Never Assessed Sex Assigned at Date Recorded Not on file COVID-19 Exposure Response Date Recorded In the last month, have you been in contact with someone who was confirmed or suspected to have Coronavirus / COVID-19? No / Unsure 03/04/2020 10:47 AM EDT documented as of this encounter Plan of Treatment Not on file documented as of this encounter Visit Diagnoses Not on filedocumented in this encounter Care Teams Air Compressor Operator Relationship Specialty Start Date End Date Harshad Suarez MD PCP - General Internal Medicine 02/26/20 documented as of this encounter
--- OUTSIDE RECORDS SUMMARY | 2024-09-13 17:36 | XMS_ITS | Encounter Summary ---
Author Organization [facility] Address [address] [place] [address] Care Team Providers Care Hospice Office Coordinator Name Role Phone Unavailable Primary Care Provider Unavailabl e Encounter Details Date Type Department Care Team (Latest Contact Info) Description 09/02/2020 Abstract [facility] CONVERSIONS Dental, Provider, DDS Social History Tobacco Use Types Packs/Day Years Used Date Smoking Tobacco: Never Assessed Comments Unknown Sex and Gender Information Value Date Recorded Sex Assigned at Female 03/22/2022 10:24 AM EDT Legal Sex Female 10:24 AM EDT Gender Identity Choose not to disclose 10:24 AM EDT Sexual Orientation Choose not to disclose 2021 10:24 AM EDT documented as of this encounter Plan of Treatment Not on file documented as of this encounter Visit Diagnoses Not on filedocumented in this encounter
== END 2024-09-13 14:53 | disposition home or self-care (01) ==
LOC: HO.CT 14:52
PROVIDERS: PCP Physician Assistant Medical; Visit Provider Nurse Practitioner Family
DX: J84.89 Other specified interstitial pulmonary diseases (principal); M35.9 Systemic involvement of connective tissue, unspecified; R91.8 Other nonspecific abnormal finding of lung field
CPT/HCPCS: 71250

== ENCOUNTER → 2024-09-13 14:54 | Outpatient (BNV) | payer OTHER, SELFPAY | PROVIDERS: PCP Physician Assistant Medical; Visit Provider Nuclear Medicine | DX: J84.89 Other specified interstitial pulmonary diseases (principal) | CPT/HCPCS: 71250 ==

== ENCOUNTER 2024-09-20 15:18 | Outpatient (REF) | payer OTHER, SELFPAY ==
[2024-09-20 15:44] LABS: MANUAL DIFF FLAG NO
[2024-09-20 15:52] LABS: Basophils Percent Auto 0.5 % (0-2); Eosinophils Absolute Auto 0.1 X10*3/uL (0.0-0.4); Eosinophils Percent Auto 1.2 % (0-4); Hematocrit 38.1 % (37.0-47.0); Hemoglobin 12.8 g/dl (12.0-16.0); Lymphocytes Absolute Auto 3.4 X10*3/uL (1.2-4.9); Lymphocytes Percent Auto 53.2 % (20-40); Mean Corpuscular HGB Conc 33.6 g/dl (31.0-35.0); Mean Corpuscular Volume 86.4 fL (80.0-98.0); Monocytes Absolute Auto 0.5 X10*3/uL (0.1-1.2); Monocytes Percent Auto 8.4 % (2-11); Neutrophils Absolute Auto 2.4 x10*3/uL (2.0-8.3); Neutrophils Percent Auto 36.7 % (45-73); Platelet Count 175 X10*3/uL (160-400); Red Blood Count 4.41 X10*6/uL (4.20-5.50); Red Cell Distribution Width 13.9 % (11.0-16.0); White Blood Count 6.5 X10*3/uL (4.8-10.8)
[2024-09-20 16:29] LABS: Alanine Aminotransferase 28 U/L (0-31); Albumin Level 3.9 g/dL (3.5-5.0); Alkaline Phosphatase 62 U/L (39-117); Anion Gap 11 (12-20); Aspartate Amino Transferase 30 U/L (5-31); Bilirubin Total 0.6 mg/dL (0.0-1.0); Blood Urea Nitrogen 15 mg/dL (9-16); C Reactive Protein < 0.10 mg/dL (< or = 0.50); Calcium 9.6 mg/dL (8.4-10.2); Carbon Dioxide 26 mmol/L (22-29); Chloride 104 mmol/L (96-108); Estimated Glomerular Filt Rate > 60; Glucose Random 113 mg/dL (60-115); Potassium 3.5 mmol/L (3.3-5.1); Sodium 137 mmol/L (135-145); Total Protein 7.6 g/dL (6.5-8.0)
[2024-09-20 17:00] LABS: Erythrocyte Sedimentation Rate 23 MM/HR (0-20)
--- OUTSIDE RECORDS SUMMARY | 2024-09-20 17:06 | XMS_ITS | Clinical Summary ---
Author Organization [facility] Address [address] [place] [address] Care Team Providers Care Production Coordinator Name Role Phone Unavailable Primary Care [...] Relevant to Health Maintenance Insurance [facility]AL - [facility]
--- OUTSIDE RECORDS SUMMARY | 2024-09-20 17:06 | XMS_ITS | Encounter Summary ---
Author Organization [facility] Address [address] [place] [address] Care Team Providers Care Tick Sewer Name Role Phone Unavailable Primary Care Provider Unavailabl e Encounter Details Date Type Department Care Team (Latest Contact Info) Description 09/02/2020 Abstract [facility] CONVERSIONS Dental, Provider, DDS Social History [...]
[2024-09-21 08:19] LABS: HBS Num1 415.01 mIU/mL (0-7.99); HBc Num1 0.08 S/CO (0.00-0.79); HBsAGNum1 0.35 S/CO (0.00-0.99); Hepatitis B Core Antibody Nonreactive (Nonreactive); Hepatitis B Surface Antigen Negative (Negative); ~HepC Num1 0.14 S/CO (0.00-0.79); ~Hepatitis B Surface Antibody REACTIVE (Nonreactive); ~Hepatitis C Antibody Nonreactive (Nonreactive)
[2024-09-21 09:49] LABS: Hepatitis A Antibody IgM 0.24 Index (0-0.79); ~Hepatitis A Antibody IgM Nonreactive (Nonreactive)
[2024-09-22 23:09] LABS: TS Negative Control Passed; TS Panel A 0; TS Panel B 0; TS Positive Control Passed; TSpotTB Negative (Negative)
== END 2024-09-20 15:19 | disposition home or self-care (01) ==
LOC: HO.LAB 15:18
PROVIDERS: Visit Provider Student in an Organized Health Care Education/Training Program
DX: M35.05 Sjogren syndrome with inflammatory arthritis (principal); Z11.59 Encounter for screening for other viral diseases; Z11.7 Encounter for testing for latent tuberculosis infection
CPT/HCPCS: 36415; 80053; 85025; 85652; 86140; 86481; 86704; 86706; 86709; 86803; 87340

== ENCOUNTER 2024-10-11 08:01 | Outpatient (AMB) | payer OTHER, SELFPAY ==
--- OUTSIDE RECORDS SUMMARY | 2024-10-11 08:04 | XMS_ITS | Encounter Summary ---
Author Organization [facility] Address [address] [place] [address] Care Team Providers Care Cane Weigher Name Role Phone Unavailable Primary Care Provider Unavailabl e Encounter Details Date Type Department Care Team (Latest Contact Info) Description 09/02/2020 Abstract [facility] CONVERSIONS Dental, Provider, DDS Social History Tobacco Use Types Packs/Day Years Used Date Smoking Tobacco: Never Assessed Comments Unknown Sex and Gender Information Value Date Recorded Sex Assigned at Female 03/22/2022 10:24 AM EDT Legal Sex Female 10:24 AM EDT Gender Identity Choose not to disclose 2 10:24 AM EDT Sexual Orientation Choose not to disclose 2021 10:24 AM EDT documented as of this encounter Plan of Treatment Not on file documented as of this encounter Visit Diagnoses Not on filedocumented in this encounter
--- OUTSIDE RECORDS SUMMARY | 2024-10-11 08:04 | XMS_ITS | Encounter Summary ---
Author Organization [facility] Address [address] [place] [address] Care Team Providers Care Test Analyst Name Role Phone Harshad Suarez MD Primary Care Provider Unava ilable Encounter Details Date Type Department Care Team Description 09/22/2020 Telephone Gastroenterology - [place] [address] [place] [phone] Darrell Coronado PA-C [address] [place], [place] [id number] Social History Tobacco Use Types Packs/Day Years Used Date Smoking Tobacco: Never Assessed Sex Assigned at Date Recorded Not on file documented as of this encounter Miscellaneous Notes * Telephone Encounter - Darrell Coronado PA-C - 09/22/2020 2:18 PM EDT Prescription for Nexium 20 mg once a day sent to her local pharmacy. documented in this encounter Plan of Treatment Not on file documented as of this encounter Visit Diagnoses Not on filedocumented in this encounter Care Teams Test Analyst Relationship Specialty Start Date End Date Harshad Suarez MD PCP - General Internal Medicine 02/26/20 documented as of this encounter
--- OUTSIDE RECORDS SUMMARY | 2024-10-11 08:04 | XMS_ITS | Encounter Summary ---
Author Organization [facility] Address [address] [place] [address] Care Team Providers Care Plug And Mold Finisher Name Role Phone Harshad Suarez MD Primary Care Provider Unava ilable Encounter Details Date Type Department Care Team Description 03/12/2020 Orders Only Medical Records [address] [place] [address] Krystian Rios MD [address] [place] [address] Social History Tobacco Use Types Packs/Day Years [...] as possible. You may also use an qybd-tpx-imqwfbl acid reducing agent such as Zantac or Pepcid, Tums, omeprazole etc. when necessary. Please follow up in order to discuss these findings with the referring physician at [facility] gastroenterology clinic. I would like to personally thank you for allowing us to take care of you. Please don't hesitate to call us for any questions or concerns. Regards, Parminder Rios MD Board Certified Gastroenterology and Internal Medicine Transplant Hepatology [facility] documented in this encounter Plan of Treatment Not on file documented as of this encounter Procedures Procedure Name Priority Date/Time Associated Diagnosis Comments OUTSIDE PATHOLOGY Routine 03/10/2020 documented in this encounter Results * OUTSIDE PATHOLOGY (03/10/2020) H Gabino Rios MD OUTSIDE LAB documented in this encounter Visit Diagnoses Not on filedocumented in this encounter Care Teams Plug And Mold Finisher Relationship Specialty Start Date End Date Harshad Suarez MD PCP - General Internal Medicine 02/26/20 documented as of this encounter
--- OUTSIDE RECORDS SUMMARY | 2024-10-11 08:04 | XMS_ITS | Clinical Summary ---
Author Organization [employer] [facility] Address [address] [place] [address] Care Team Providers Care Heavy Equipment Sales Associate Name Role Phone Unavailable Primary Care Provider [...] patient's age to complete this topic Meningococcal B Vaccine Aged Out No l onger eligible based on patient's age to complete [...] Recently Relevant to Health Maintenance Insurance [facility]
--- OUTSIDE RECORDS SUMMARY | 2024-10-11 08:04 | XMS_ITS | Clinical Summary ---
Author Organization [facility] Address [address] [place] [address] Care Team Providers Care Lens Engraver Name Role Phone Harshad Suarez MD Primary Care Provider Social History Tobacco Use Types Packs/Day Years [...] age to complete this topic Care Teams Lens Engraver Relationship Specialty Start Date End Date Harshad Suarez MD [address] [facility] [address] [place] [address] PCP - General Geriatric Medicine 04/23/20
--- OUTSIDE RECORDS SUMMARY | 2024-10-11 08:04 | XMS_ITS | Encounter Summary ---
Author Organization [facility] Address [address] [place] [address] Care Team Providers Care Bankman Name Role Phone Harshad Suarez MD Primary Care Provider Unava ilable Encounter Details Date Type Department Care Team Description 03/07/2020 Release of Information Medical Records [address] [place] [id number] Abstract, Provider Social History Tobacco Use Types Packs/Day [...] on filedocumented in this encounter Care Teams Bankman Relationship Specialty Start Date End Date Harshad Saurez MD PCP - General Internal Medicine 02/26/20 documented as of this encounter
--- NOTE | 2024-10-11 08:07 | A.OFFVIS_ITS ---
Vital Signs 10/11/24 08:10 Height 4 ft 11 in Weight 131 lb 2.801 oz BMI 26.5 BP 132/80 Blood Pressure Location Rt brachial Position Sitting Pulse 66 Pulse Source Pulse Oximeter Pulse Oximetry (%) 98 Oxygen Delivery Method Room Air Intake Visit Reasons: RA Intake Note: Patient presents for RA follow up. Allergies Humira Pen Allergy (Intermediate, Uncoded 05/31/24 08:17) rash Medication List - Last Reconciled 10/11/24 by Chelita Iqbal MD acetaminophen ER (Tylenol Arthritis Pain) 650 mg PO Q12H PRN alendronate 70 mg PO QWEEK azelastine intranasal chlorthalidone 25 mg PO BID clonidine HCl 0.1 mg PO BID Enbrel SureClick (etanercept) 50 mg subcut QWEEK NS lidocaine 5% 1 patch topical DAILY PRN loteprednol etabonate 0.5% drps ophthalmic (eye) multivitamin with folic acid 400 mcg (Daily-Mari (with folic acid)) tabs PO sennosides (senna) mg PO DAILY HPI Comments Details: Patient is a 69-year-old female with hypertension, YEN not on CPAP, polyarticular osteoarthritis, osteopenia, seropositive rheumatoid arthritis/Sjogren's overlap complicated by ILD here today for follow up Interval History: Patient last seen 05/31/[address] Vazquez. At that time she was on Enbrel. She was trying to decrease her frequency and went as far as every 14 days however noted more joint pain when she did that and she increased it to every 10 days and that was better. She was also complaining of bilateral TMJ pain. Recommendation was to increase the frequency of Enbrel injections to weekly for a month and then go back to every 10 days. Today, Patient states that she did the Enbrel for 7 days for a few weeks but when back to every 10 days Has cut out bread and sugar out of her diet as well Doing better TMJ pain improved, still has clicking in the TMJ which bothers her Rheumatologic History: Seropositive RA - previously failed methotrexate and Humira - on Enbrel since about 2019 Sjogren's with ILD - no significant symptoms - SSA positive Current Rheumatology Medication(s): Enbrel 50mg SC every 10 days [facility] Medical History Cervical spondylosis with radiculopathy Seropositive rheumatoid arthritis Bilateral inguinal hernia Hyperthyroidism Hyperlipidemia Glaucoma Kidney stones GERD (gastroesophageal reflux disease) Chronic constipation Overlap syndrome Osteoarthritis Sjogrens syndrome Surgical History Hx of hernia repair Hx of tooth extraction Family History Father Intracranial aneurysm CVD (cardiovascular disease) Mother Liver cancer HTN (hypertension) Social History Household Members: None Housing: Apartment Alcohol intake: never Patient Tobacco Use Status: Never used Tobacco Review of Systems Const Details: Review of Systems Constitutional: Denies fever, chills, weight loss ENT: Denies vision changes, eye pain or eye redness, dental caries, dry mouth GI: Denies nausea, vomiting, diarrhea, abdominal pain, change in BM Pulm: Denies SOB, RAMOS, hemoptysis, wheezing Cards: Denies chest pain, palpitations Skin: Denies Raynaud's, rash, nail changes, photosensitivity, DAY SPA MANAGER: Denies headaches, weakness, paresthesias, recurrent falls MSK: as per HPI All other systems reviewed and are unremarkable except noted above Physical Exam Vital Signs: Last Vital Signs Pulse 66 10/11/24 08:10 BP 132/80 10/11/24 08:10 Pulse Ox 98 10/11/24 08:10 Oxygen Delivery Method Room Air 10/11/24 08:10 BMI result Body Mass Index 26.5 Vital signs reviewed Physical Examination CONSTITUITIONAL Patient alert and cooperative. Well appearing and in no apparent painful distress HEENT Conjunctiva and sclera clear. ?Pupils equal round and reactive to light. ?No lymphadenopathy. ? CHEST/RESPIRATORY SYSTEM Normal respiratory effort and able to speak in complete sentences. ?Clear to auscultation bilaterally. ?No crackles, rales, rhonchi, wheezes heard. CARDIAC SYSTEM Regular rate and rhythm. ?S1 and S2 heard no murmurs. ?Radial pulses intact bilaterally MSK Hands: ?Able to make a fist. No synovitis noted to the MCPs, PIPs or DIPs. ?No tenderness to palpation of these joints. Prominent herbeden's nodes Wrists: ?Full range of motion at the wrists without pain. ?No tenderness to palpation or synovitis noted to the wrists. Elbows: Full range of motion without pain. No tenderness, weakness, swelling, increased warmth or erythema. Shoulders: Full range of active range of motion without pain. No tenderness, weakness, swelling, increased warmth or erythema. Knees: ?Full range of motion. ?No tenderness, swelling, increased warmth or erythema.?No effusion or crepitations Ankles: Full range of motion. ?No tenderness, swelling, increased warmth or erythema.? Feet: ?Negative squeeze test. ?No tenderness to palpation or swelling of the MTPs. Tender points:?No tenderness to palpation of the bilateral trapezius, supraspinatus, greater trochanters, anterior costochondral junctions, bilateral gluteal areas, bilateral suboccipital muscle insertions SKIN Skin intact without rashes. Results Reviewed Results Reviewed: Laboratory Tests 09/20/24 15:42 WBC 6.5 RBC 4.41 Hgb 12.8 Hct 38.1 Plt Count 175 ESR 23 H Sodium 137 Potassium 3.5 Chloride 104 Carbon Dioxide 26 BUN 15 Creatinine 0.76 AST 30 ALT 28 Alkaline Phosphatase 62 C-Reactive Protein < 0.10 Immunology labs 05/05/23 12:38 UMANG Screen POSITIVE A UMANG Titer 1:1280 H SS-A/Ro Antibody >8.0 POS A SS-B/La Antibody >8.[address] Chest 08/2024 Findings: The heart size is normal. The visualized thyroid and mediastinum are unremarkable. Stable 2 mm nodule of the right upper lobe series 6, image 92. Stable 2 mm nodule of the right middle lobe image 110. Stable lower lobe dominant subpleural ground-glass and reticular opacities with mild bronchiectasis. Limited evaluation of the renal cyst. No acute fractures. IMPRESSION: Stable lower lobe dominant mild interstitial pulmonary fibrosis without honeycombing. Stable small pulmonary nodules DEXA 05/2023 INDINGS: LEFT FEMUR, NECK: BMD 0.720 g/cm2, Z-score -0.7, T-score -2.3, osteopenia. LEFT FEMUR, TOTAL: BMD 0.828 g/cm2, Z-score -0.1, T-score -1.4, osteopenia. AP SPINE L1-L4: BMD 0.917 g/cm2, Z-score -0.6, T-score -2.2, osteopenia. 2. 10-YEAR FRACTURE RISK PREDICTION, FRAX: Major osteoporotic fracture (clinical spine, forearm, hip or shoulder) 16.9%. Hip fracture 3.8%. Assessment & Plan Assessment & Plan (1) Sjogren syndrome with inflammatory arthritis: Comment: +++SSa+++SSb Code(s): M35.05 - Sjogren syndrome with inflammatory arthritis Category: Medical Plan: #Sjogrens syndrome/Seropositive RA Patient is a 69 y.o. female with overalap sjogrens/seropositive RA here today for follow up. Doing well and in remission. Complaining of lack of tears. Explained that this is due to sjogren's. Denies significantly dry eyes. Can consider eye drops in the future if eyes are irritated Plan - Enbrel 50mg SC every 10 days - RTC 4 months - Labs before visit: CBC, CMP, ESR, CRP, C3, C4, RF, UA, UPC, SPEP (2) Interstitial lung disease due to connective tissue disease: Code(s): J84.89 - Other specified interstitial pulmonary diseases; M35.9 - Systemic involvement of connective tissue, unspecified Category: Medical Plan: #ILD 2/2 CTD Patient with NSIP ILD. Repeat CT scan done 08/2024 showing stable lung disease. Follows with pulmonology (3) Osteopenia: Comment: DEXA 05/2023: AP Spine -2.2, Left femur neck -2.3, Left femur total -1.4. FRAX 16.9/3.8 Alendronate 07/2023 Code(s): M85.80 - Other specified disorders of bone density and structure, unspecified site Category: Medical Qualifiers: Osteopenia location: multiple sites Qualified Code(s): M85.89 - Other specified disorders of bone density and structure, multiple sites Plan: #Osteopenia Patient with osteopenia and an elevated FRAX score on alendronate. No falls or fractures since the last visit. Tolerating the alendronate and receiving 2000 units vitamin-D daily from her primary. Plan - Alendronate 70mg weekly - Vitamin D 2000U daily - DEXA 05/2025 (4) Encounter for monitoring of etanercept therapy: Code(s): Z51.81 - Encounter for therapeutic drug level monitoring; Z79.620 - dedicated intermodal truck driver (current) use of immunosuppressive biologic Plan: #Long-term Use of TNF Inhibitors: Enbrel Discussed with the patient the benefits and risks of TNF inhibitors for the management of the rheumatic condition Benefits include reduce pain, maintenance of remission and reduction of flares as well as ?progression of the disease Risks include injection sites/infusion reactions, serious infections (such as bacterial infections, opportunistic infections), malignancy, delaminating syndromes, autoimmune phenomena, CHF exacerbations, palmar plantar psoriasis and cytopenias Recommended rotating injection sites, and holding medication during and for up to 1 week after resolution of a febrile illness or open skin wound Plan I spent 33 minutes reviewing the record and labs, taking a history, examining the patient, discussing the treatment plan, ordering diagnostic work up and documenting in the medical record Orders: Orders Complete Blood Count Auto Diff 4 Months . - Sjogren syndrome with inflammatory arthritis Protein Creatinine Ratio, Ur 4 Months . - Sjogren syndrome with inflammatory arthritis Immunofixation Pnl, Serum 4 Months . - Sjogren syndrome with inflammatory arthritis UA w Microscopic 4 Months . - Sjogren syndrome with inflammatory arthritis Vitamin D 25-OH (D2 and D3) 4 Months E55.9 - Vitamin D deficiency, unspecified Complement C3 4 Months . - Sjogren syndrome with inflammatory arthritis Complement C4 4 Months M3. - Sjogren syndrome with inflammatory arthritis Comprehensive Met. Panel 4 Months . - Sjogren syndrome with inflammatory arthritis C Reactive Protein 4 Months . - Sjogren syndrome with inflammatory arthritis Erythrocyte Sedimentation Rate 4 Months . - Sjogren syndrome with inflammatory arthritis Protein Electrophoresis, Serum 4 Months . - Sjogren syndrome with inflammatory arthritis Medications: New cholecalciferol (vitamin D3) 50 mcg PO DAILY Refilled alendronate Take 1 tab once weekly, 1st thing in the morning, on an empty stomach, with a large glass of water (at least 6 oz) and stay upright for 30 minutes 70 mg PO QWEEK 12 tabs 1RF Enbrel SureClick (etanercept) 50 mg subcut QWEEK 4 mL 4RF NS M05.9 - Rheumatoid arthritis with rheumatoid factor, unspecified Coding Level of Care Code Est Pt Level 4 (94371) Complex EM visit Add On G2211 Diagnoses Sjogren syndrome with inflammatory arthritis M35. Interstitial lung disease due to connective tissue disease J84.89; M35.9 Osteopenia of multiple sites M85.89 Osteopenia location: multiple sites Encounter for monitoring of etanercept therapy Z51.81; Z79.620
[2024-10-11 08:10] VITALS: BP 132/80; PULSE 66; O2SAT 98; BMI 26.5
== END 2024-10-11 08:55 | disposition home or self-care (01) ==
LOC: HO.RHE 08:02
PROVIDERS: PCP Physician Assistant Medical; Visit Provider Student in an Organized Health Care Education/Training Program
DX: M35.05 Sjogren syndrome with inflammatory arthritis (principal); J84.89 Other specified interstitial pulmonary diseases; M35.89 Other specified systemic involvement of connective tissue; M85.89 Other specified disorders of bone density and structure, multiple sites; Z51.81 Encounter for therapeutic drug level monitoring; Z79.620 Long term (current) use of immunosuppressive biologic
CPT/HCPCS: 99214; G2211

== ENCOUNTER → 2024-10-11 08:01 | Outpatient (BNVA) | payer OTHER, SELFPAY | PROVIDERS: PCP Physician Assistant Medical; Visit Provider Student in an Organized Health Care Education/Training Program | DX: M15.9 Polyosteoarthritis, unspecified (principal); M35.05 Sjogren syndrome with inflammatory arthritis; M35.9 Systemic involvement of connective tissue, unspecified; M85.89 Other specified disorders of bone density and structure, multiple sites; J84.89 Other specified interstitial pulmonary diseases; E55.9 Vitamin D deficiency, unspecified; Z51.81 Encounter for therapeutic drug level monitoring; Z79.620 Long term (current) use of immunosuppressive biologic | CPT/HCPCS: 99212 ==

== ENCOUNTER 2025-02-12 09:56 | Outpatient (REF) | payer OTHER, SELFPAY ==
[2025-02-12 11:20] LABS: Hematocrit 40.9 % (37.0-47.0); Hemoglobin 13.3 g/dl (12.0-16.0); Imm Gran Abs Auto 0.01 X10*3/uL (0.00-0.03); Imm Gran Pct Auto 0.2 % (0.0-0.4); Lymphocytes Absolute Auto 2.7 X10*3/uL (1.2-4.9); Mean Corpuscular HGB Conc 32.5 g/dl (31.0-35.0); Mean Corpuscular Hemoglobin 27.4 pg (27.0-33.0); Mean Corpuscular Volume 84.3 fL (80.0-98.0); NRBC Abs Auto 0.000 X10*3/uL (0.0-0.012); NRBC Pct Auto 0.0 /100WBC (0.0-0.2); Platelet Count 150 X10*3/uL (160-400); Red Blood Count 4.85 X10*6/uL (4.20-5.50); White Blood Count 4.5 X10*3/uL (4.8-10.8)
[2025-02-12 11:40] LABS: Appearance Urine Clear; Glucose Urine UA Negative (Negative); PH 8.0 (5.0-9.0); Specific Gravity - Urine 1.010 (1.005-1.025); UMIC TRIGGER UA YES
--- OUTSIDE RECORDS SUMMARY | 2025-02-12 12:01 | XMS_ITS | Encounter Summary ---
Author Organization [employer] [facility] Address [address] [place] [address] Care Team Providers Care Ferry Boat Captain Name Role Phone Unavailable Primary Care Provider Unavailabl e Encounter Details Date Type Department Care Team (Latest Contact Info) Description 09/02/2020 Abstract [facility] CONVERSIONS Dental, Provider, DDS Social History [...]
--- OUTSIDE RECORDS SUMMARY | 2025-02-12 12:01 | XMS_ITS | Clinical Summary ---
Author Organization [facility] Address [address] [place] [address] Care Team Providers Care Quotation Clerk Name Role Phone Harshad Suarez MD Primary Care Provider [phone] Social History Tobacco Use Types Packs/Day Years [...] 1 - PCV) 2020 Influenza Vaccine (#1) 2025 RSV Adult > 60+ Yrs or Pregn ant (1 - 1-dose 75+ series) 2030 Hepatitis B Vaccines Aged Out No long er eligible based on patient's age to complete this topic RSV Ped < 20 months Aged Out No longe r eligible based on patient's age to complete this topic Care Teams Quotation Clerk Relationship Specialty Start Date End Date Harshad Suarez MD [address] [facility] [address] [place] [address] PCP - General Geriatric Medicine 04/23/20
--- OUTSIDE RECORDS SUMMARY | 2025-02-12 12:01 | XMS_ITS | Clinical Summary ---
Author Organization [employer] [facility] Address [address] [facility] [address] [address] [place] [address] Care Team Providers Care Glassware Selector Name Role Phone Unavailable Primary Care Provider [...] 2005 Zoster Vaccines (1 of 2) 2005 Dental X-Ray: Bitewings 08/18/2024 08/18/2023, 05/26 Dental Oral Exam 08/23/2024 02/22/2024, , 05/26/2022 Dental Prophylaxis 08/23/2024 02/22/2024, 0 08/18/2023, 08/23/2022, Additional history exists COVID-19 Vaccine ( - season) 2025 Influenza Vaccine (#1) 2025 Tobacco Screening 02/21/2025 02/22/2024 RSV Patients and [...] Recently Relevant to Health Maintenance Insurance [facility]
[2025-02-12 12:37] LABS: Alanine Aminotransferase 17 U/L (0-31); Albumin Level 4.2 g/dL (3.5-5.0); Alkaline Phosphatase 78 U/L (39-117); Anion Gap 12 (12-20); Aspartate Amino Transferase 32 U/L (5-31); Blood Urea Nitrogen 12 mg/dL (9-16); Calcium 9.5 mg/dL (8.4-10.2); Carbon Dioxide 27 mmol/L (22-29); Chloride 100 mmol/L (96-108); Estimated Glomerular Filt Rate > 60; Potassium 3.4 mmol/L (3.3-5.1); Sodium 136 mmol/L (135-145); Total Protein 8.3 g/dL (6.5-8.0)
[2025-02-12 13:50] LABS: Total Protein Urine Random < 7 mg/dL (<12)
[2025-02-17 16:19] LABS: Vitamin D 25-OH, D2 <4 ng/mL; Vitamin D 25-OH, D3 50 ng/mL; Vitamin D 25-OH, Total 50 ng/mL (30-100)
[2025-02-18 19:07] LABS: Prot Elec - Albumin 4.3 g/dL (3.8-4.8); Prot Elec - Alpha1 0.2 g/dL (0.2-0.3); Prot Elec - Alpha2 0.6 g/dL (0.5-0.9); Prot Elec - Beta 1 0.5 g/dL (0.4-0.6); Prot Elec - Beta 2 0.6 g/dL (0.2-0.5); Prot Elec - Gamma 2.0 g/dL (0.8-1.7); Prot Elec - Total Protein 8.1 g/dL (6.1-8.1)
== END 2025-02-12 09:57 | disposition home or self-care (01) ==
LOC: HO.LAB 09:56
PROVIDERS: PCP Physician Assistant Medical; Visit Provider Student in an Organized Health Care Education/Training Program
DX: M35.05 Sjogren syndrome with inflammatory arthritis (principal); E55.9 Vitamin D deficiency, unspecified
CPT/HCPCS: 36415; 80053; 81001; 82306; 82570; 82784; 84156; 84165; 85025; 86140; 86160; 86334

== ENCOUNTER 2025-03-08 10:02 | Outpatient (REF) | payer OTHER, SELFPAY ==
--- OUTSIDE RECORDS SUMMARY | 2025-03-08 11:41 | XMS_ITS | Encounter Summary ---
Author Organization [facility] Address [address] [place] [address] Care Team Providers Care Slat Basket Maker Helper Machine Name Role Phone Harshad Suarez MD Primary Care Provider Unava ilable Encounter Details Date Type Department Care Team Description 02/22/2020 Director Of Student Life Report Medical Records [address] [place] [address] Concepcion Roberts PA-C Social History Tobacco Use Types Packs/Day Years Used Date Smoking Tobacco: Never Assessed Sex Assigned at Date Recorded Not on file documented as of this encounter Plan of Treatment Not on file documented as of this encounter Visit Diagnoses Not on filedocumented in this encounter Care Teams Slat Basket Maker Helper Machine Relationship Specialty Start Date End Date Harshad Suarez MD PCP - General Internal Medicine 02/26/20 documented as of this encounter
--- OUTSIDE RECORDS SUMMARY | 2025-03-08 11:41 | XMS_ITS | Encounter Summary ---
Author Organization [employer] [facility] Address [address] [facility] [address] [place] [address] Care Team Providers Care Felt Checker Name Role Phone Unavailable Primary Care Provider Unavailabl e Encounter Details Date Type Department Care Team (Latest Contact Info) Description 09/02/2020 Abstract [facility] CONVERSIONS Dental, Provider, DDS Social History Tobacco [...]
--- OUTSIDE RECORDS SUMMARY | 2025-03-08 11:41 | XMS_ITS | Encounter Summary ---
Author Organization [facility] Address [address] [place] [address] Care Team Providers Care Sandblaster Paint Sprayer Name Role Phone Harshad Suarez MD Primary Care Provider Unava ilable Encounter Details Date Type Department Care Team Description 03/10/2020 Hospital Medical Records [address] [place] [address] Krysitan Rios MD [address] [place] [address] Social History Tobacco Use Types Packs/Day Years [...] on filedocumented in this encounter Care Teams Sandblaster Paint Sprayer Relationship Specialty Start Date End Date Harshad Suarez MD PCP - General Internal Medicine 02/26/20 documented as of this encounter
--- OUTSIDE RECORDS SUMMARY | 2025-03-08 11:41 | XMS_ITS | Encounter Summary ---
Author Organization [facility] Address [address] [place] [address] Care Team Providers Care Line Patrolman Name Role Phone Harshad Suarez MD Primary Care Provider Unava ilable Encounter Details Date Type Department Care Team Description 03/07/2020 Release of Information Medical Records [address] [place] [id number] Abstract, Provider Social History Tobacco Use Types [...] on filedocumented in this encounter Care Teams Line Patrolman Relationship Specialty Start Date End Date Harshad Suarez MD PCP - General Internal Medicine 02/26/20 documented as of this encounter
--- OUTSIDE RECORDS SUMMARY | 2025-03-08 11:41 | XMS_ITS | Clinical Summary ---
Author Organization [facility] Address [address] [place] [address] Care Team Providers Care Seeing Eye Dog Trainer Name Role Phone Harshad Suarez MD Primary [...] age to complete this topic Care Teams Seeing Eye Dog Trainer Relationship Specialty Start Date End Date Harshad Suarez MD [address] [facility] [address] [place] [phone] PCP - General Geriatric Medicine 04/23/20
--- OUTSIDE RECORDS SUMMARY | 2025-03-08 11:41 | XMS_ITS | Encounter Summary ---
Author Organization [facility] Address [address] [place] [address] Care Team Providers Care Service Promoter Salesperson Name Role Phone Harshad Suarez MD Primary Care Provider Unava ilable Encounter Details Date Type Department Care Team Description 03/12/2020 Orders Only Medical Records [address] [place] [address] Krystian Rios MD [address] [place] [address] Social History Tobacco Use Types Packs/Day Years [...] as possible. You may also use an [id number] acid reducing agent such as Zantac or Pepcid, Tums, omeprazole etc. when necessary. Please follow up in order to discuss these findings with the referring physician at [facility] gastroenterology clinic. I would like to personally thank you for allowing us to take care of you. Please don't hesitate to call us for any questions or concerns. Regards, Parminder Rios MD Board Certified Gastroenterology and Internal Medicine Transplant Hepatology [facility] documented in this encounter Plan of Treatment Not on file documented as of this encounter Procedures Procedure Name Priority Date/Time Associated Diagnosis Comments OUTSIDE PATHOLOGY Routine 03/10/2020 documented in this encounter Results * OUTSIDE PATHOLOGY (03/10/2020) H Gabino Rios MD OUTSIDE LAB documented in this encounter Visit Diagnoses Not on filedocumented in this encounter Care Teams Service Promoter Salesperson Relationship Specialty Start Date End Date Harshad Suarez MD PCP - General Internal Medicine 02/26/20 documented as of this encounter
--- OUTSIDE RECORDS SUMMARY | 2025-03-08 11:41 | XMS_ITS | Clinical Summary ---
Author Organization [employer] [facility] Address [address] [facility] [address] [place] [address] Care Team Providers Care Seaman Officer Name Role Phone Unavailable Primary Care Provider [...] [facility]
== END 2025-03-08 10:03 | disposition home or self-care (01) ==
LOC: HO.LAB 10:02
PROVIDERS: PCP Physician Assistant Medical; Visit Provider Student in an Organized Health Care Education/Training Program
DX: M35.05 Sjogren syndrome with inflammatory arthritis (principal)
CPT/HCPCS: 36415; 85652

== ENCOUNTER 2025-03-12 09:46 | Outpatient (AMB) | payer OTHER, SELFPAY ==
--- NOTE | 2025-03-12 10:02 | A.OFFVIS_ITS ---
Vital Signs 03/12/25 10:09 Height 4 ft 11 in Weight 127 lb 3.307 oz BMI 25.7 BP 134/80 Blood Pressure Location Lt brachial Position Sitting Pulse 70 Pulse Source Pulse Oximeter Pulse Oximetry (%) 97 Oxygen Delivery Method Room Air Intake Visit Reasons: f/u sjogrens/RA overlap Intake Note: Patient presents for Sjogrens/RA overlap follow up. Allergies Humira Pen Allergy (Intermediate, Uncoded 05/31/24 08:17) rash Medication List - Last Reconciled 03/12/25 by Chelita Iqbal MD acetaminophen ER (Tylenol Arthritis Pain) 650 mg PO Q12H PRN alendronate 70 mg PO QWEEK azelastine intranasal chlorthalidone 25 mg PO BID cholecalciferol (vitamin D3) 50 mcg PO DAILY clonidine HCl 0.1 mg PO BID Enbrel SureClick (etanercept) 50 mg subcut QWEEK NS lidocaine 5% 1 patch topical DAILY PRN loteprednol etabonate 0.5% drps ophthalmic (eye) multivitamin with folic acid 400 mcg (Daily-Mari (with folic acid)) tabs PO sennosides (senna) mg PO DAILY HPI Comments Details: Patient is a 69-year-old female with hypertension, YEN not on CPAP, polyarticular osteoarthritis, osteopenia, seropositive rheumatoid arthritis/Sjogren's overlap complicated by ILD here today for follow up Interval History: Patient last seen 10/11/2024 with me. - On Enbrel 50mg SC every week - Patient states that she did the Enbrel every 7 days for a few weeks but when back to every 10 days - Has cut out bread and sugar out of her diet as well - Doing better - TMJ pain improved, still has clicking in the TMJ which bothers her Today - On Enbrel 50mg SC every 10 days - Feels tired - Brain fog - Having stomach issues with bloating and nausea - 3-4 months ago was hospitalized for cellulitis - Pins and needles to the hands and feet Rheumatologic History: Seropositive RA - previously failed methotrexate and Humira - on Enbrel since about 2019 Sjogren's with ILD - no significant symptoms - SSA positive Current Rheumatology Medication(s): Enbrel 50mg SC every 10 days [facility] Medical History Cervical spondylosis with radiculopathy Seropositive rheumatoid arthritis Bilateral inguinal hernia Hyperthyroidism Hyperlipidemia Glaucoma Kidney stones GERD (gastroesophageal reflux disease) Chronic constipation Overlap syndrome Osteoarthritis Sjogrens syndrome Surgical History Hx of hernia repair Hx of tooth extraction Family History Father Intracranial aneurysm CVD (cardiovascular disease) Mother Liver cancer HTN (hypertension) Social History Household Members: None Housing: Apartment Alcohol intake: never Patient Tobacco Use Status: Never used Tobacco Review of Systems Narrative Review of Systems Constitutional: Denies fever, chills, weight loss ENT: Denies vision changes, eye pain or eye redness, dental caries, dry mouth Pulm: Denies SOB, RAMOS, hemoptysis, wheezing Cards: Denies chest pain, palpitations Skin: Denies Raynaud's, rash, nail changes, photosensitivity, EVENT MARKETING INTERN: Denies headaches, weakness, paresthesias, recurrent falls MSK: as per HPI All other systems reviewed and are unremarkable except noted above Physical Exam Exam Exam: Vital signs reviewed Physical Examination CONSTITUITIONAL Patient alert and cooperative. Well appearing and in no apparent painful distress MSK Hands * Right Hand: Able to make a fist. No swelling or tenderness to palpation of the MCPs, PIPs or DIPs. * Left Hand: Able to make a fist. No swelling or tenderness to palpation of the MCPs, PIPs or DIPs. * Herbedens nodes noted bilaterally Wrists * Right Wrist: Full ROM to flexion and extension. No swelling or TTP * Left Wrist: Full ROM to flexion and extension. No swelling or TTP Elbows * Right Elbow: Full ROM. No swelling or TTP. No TTP of the medial epicondyle. No TTP of the lateral epicondyle * Left Elbow: Full ROM. No swelling or TTP. No TTP of the medial epicondyle. No TTP of the lateral epicondyle Shoulders * Right shoulder: Full ROM. No swelling noted. No TTP of the AC joint. No TTP of the subacromial bursa. No TTP of the posterior shoulder * Left shoulder: Full ROM. No swelling noted. No TTP of the AC joint. No TTP of the subacromial bursa. No TTP of the posterior shoulder Knees * Right knee: Full ROM. No swelling noted. No TTP of the knee joint line. No TTP of pes anserine bursa * Left knee: Full ROM. No swelling noted. No TTP of the knee joint line. No TTP of pes anserine bursa. Ankles * Right ankle: Good ankle dorsiflexion and plantar flexion. No swelling. No TTP of the ankle joint * Left ankle: Good ankle dorsiflexion and plantar flexion. No swelling. No TTP of the ankle joint Feet * Right foot: Negative squeeze test * Left foot: Negative squeeze test Tender points? * No tenderness to palpation of the bilateral trapezius, supraspinatus, anterior costochondral junctions, bilateral suboccipital muscle insertions * TTP of right trapezius SKIN No rashes Vital Signs: Last Vital Signs Pulse 70 03/12/25 10:09 BP 134/80 03/12/25 10:09 Pulse Ox 97 03/12/25 10:09 Oxygen Delivery Method Room Air 03/12/25 10:09 BMI result Body Mass Index 25.7 Results Reviewed Results Reviewed: Laboratory Tests 09/20/24 02/12/25 03/08/25 15:42 10:12 10:24 WBC 4.5 L RBC 4.85 Hgb 13.3 Hct 40.9 Plt Count 150 L ESR 23 H 36 H Sodium 136 Potassium 3.4 Chloride 100 Carbon Dioxide 27 BUN 12 Creatinine 0.68 AST 32 H ALT 17 C-Reactive Protein 0.13 Laboratory Tests 02/12/25 10:12 LUISA Interpretation No monoclonal proteins identified Laboratory Tests 09/20/24 15:42 Hepatitis A IgM Ab Nonreactive Hep Bs Antigen Negative Hep Bs Antibody REACTIVE Hep B Core Total Ab Nonreactive Hepatitis C Ab (EIA) Nonreactive TB Test (T-Spot) Com Negative DEXA 05/2023 FINDINGS: LEFT FEMUR, NECK: BMD 0.720 g/cm2, Z-score -0.7, T-score -2.3, osteopenia. LEFT FEMUR, TOTAL: BMD 0.828 g/cm2, Z-score -0.1, T-score -1.4, osteopenia. AP SPINE L1-L4: BMD 0.917 g/cm2, Z-score -0.6, T-score -2.2, osteopenia. 10-YEAR FRACTURE RISK PREDICTION, FRAX: Major osteoporotic fracture (clinical spine, forearm, hip or shoulder) 16.9%. Hip fracture 3.8%. CT Chest 08/2024 Findings: The heart size is normal. The visualized thyroid and mediastinum are unremarkable. Stable 2 mm nodule of the right upper lobe series 6, image 92. Stable 2 mm nodule of the right middle lobe image 110. Stable lower lobe dominant subpleural ground-glass and reticular opacities with mild bronchiectasis. Limited evaluation of the renal cyst. No acute fractures. IMPRESSION: Stable lower lobe dominant mild interstitial pulmonary fibrosis without honeycombing. Stable small pulmonary nodules. Assessment & Plan Assessment & Plan (1) Sjogren syndrome with inflammatory arthritis: Comment: +++SSa+++SSb Code(s): M35.05 - Sjogren syndrome with inflammatory arthritis Category: Medical Plan: #Sjogrens syndrome/Seropositive RA Patient is a 69 y.o. female with overalap sjogrens/seropositive RA here today for follow up. In remission. Several complaints today, not related to her RA or Sjogrens Recommended she follow up with her primary Plan - Enbrel 50mg SC every 10 days - Recheck: CBC, CMP, ESR and CRP today - RTC 4 months - Labs before visit: CBC, CMP, ESR, CRP (2) Interstitial lung disease due to connective tissue disease: Code(s): J84.89 - Other specified interstitial pulmonary diseases; M35.9 - Systemic involvement of connective tissue, unspecified Category: Medical Plan: #ILD 2/2 CTD Patient with NSIP ILD. Repeat CT scan done 08/2024 showing stable lung disease. Follows with pulmonology (3) Osteopenia: Comment: DEXA 05/2023: AP Spine -2.2, Left femur neck -2.3, Left femur total -1.4. FRAX 16.9/3.8 Alendronate 07/2023 Code(s): M85.80 - Other specified disorders of bone density and structure, unspecified site Category: Medical Qualifiers: Osteopenia location: multiple sites Qualified Code(s): M85.89 - Other specified disorders of bone density and structure, multiple sites Plan: #Osteopenia Patient with osteopenia and an elevated FRAX score on alendronate. No falls or fractures since the last visit. Tolerating the alendronate and receiving 2000 units vitamin-D daily from her primary. Plan - Alendronate 70mg weekly - Vitamin D 2000U daily - DEXA 05/2025 (4) Encounter for monitoring of etanercept therapy: Code(s): Z51.81 - Encounter for therapeutic drug level monitoring; Z79.620 - adjunct faculty for medical terminology (current) use of immunosuppressive biologic Plan: #Long-term Use of TNF Inhibitors: Enbrel Discussed with the patient the benefits and risks of TNF inhibitors for the management of the rheumatic condition Benefits include reduce pain, maintenance of remission and reduction of flares as well as ?progression of the disease Risks include injection sites/infusion reactions, serious infections (such as bacterial infections, opportunistic infections), malignancy, delaminating syndromes, autoimmune phenomena, CHF exacerbations, palmar plantar psoriasis and cytopenias Recommended rotating injection sites, and holding medication during and for up to 1 week after resolution of a febrile illness or open skin wound (5) Microscopic hematuria: Code(s): R31.29 - Other microscopic hematuria Plan: Refer to urology Plan I spent 35 minutes reviewing the record and labs, taking a history, examining the patient, discussing the treatment plan, ordering diagnostic work up and documenting in the medical record Orders: Orders Comprehensive Met. Panel 4 Months Z79.899 - Other intermediate (current) drug therapy C Reactive Protein 4 Months Z79.899 - Other intermediate (current) drug therapy Erythrocyte Sedimentation Rate 4 Months Z79.899 - Other adjunct faculty for medical terminology (current) drug therapy Complete Blood Count Auto Diff Today Z79.899 - Other intermediate (current) drug therapy Comprehensive Met. Panel Today Z79.899 - Other adjunct faculty for medical terminology (current) drug therapy Erythrocyte Sedimentation Rate Today Z79.899 - Other adjunct faculty for medical terminology (current) drug therapy Complete Blood Count Auto Diff 4 Months Z79.899 - Other adjunct faculty for medical terminology (current) drug therapy C Reactive Protein Today Z79.899 - Other adjunct faculty for medical terminology (current) drug therapy Referrals Urology Referral R31.29 - Other microscopic hematuria Coding Level of Care Code Est Pt Level 4 (10298) Complex EM visit Add On G2211 Diagnoses Sjogren syndrome with inflammatory arthritis M35.05 Interstitial lung disease due to connective tissue disease J84.89; M35.9 Osteopenia of multiple sites M85.89 Osteopenia location: multiple sites Encounter for monitoring of etanercept therapy Z51.81; Z79.620 Microscopic hematuria R31.29
[2025-03-12 10:09] VITALS: BP 134/80; PULSE 70; O2SAT 97; BMI 25.7
--- OUTSIDE RECORDS SUMMARY | 2025-03-12 11:06 | XMS_ITS | Clinical Summary ---
Author Organization [facility] Address [address] [place] [address] Care Team Providers Care Assistant Hvac Mechanic Name Role Phone Harshad Suarez MD Primary Care Provider [phone] Social History Tobacco Use Types Packs/Day Years [...] age to complete this topic Care Teams Assistant Hvac Mechanic Relationship Specialty Start Date End Date Harshad Suarez MD [address] [place] [id number] PCP - General Geriatric Medicine 04/23/20
== END 2025-03-12 10:48 | disposition home or self-care (01) ==
LOC: HO.RHES 09:47
PROVIDERS: PCP Physician Assistant Medical; Visit Provider Student in an Organized Health Care Education/Training Program
DX: M35.05 Sjogren syndrome with inflammatory arthritis (principal); J84.89 Other specified interstitial pulmonary diseases; M35.9 Systemic involvement of connective tissue, unspecified; M85.89 Other specified disorders of bone density and structure, multiple sites; Z51.81 Encounter for therapeutic drug level monitoring; Z79.620 Long term (current) use of immunosuppressive biologic; R31.29 Other microscopic hematuria
CPT/HCPCS: 99214; G2211

== ENCOUNTER 2025-03-12 09:46 | Outpatient (REF) | payer OTHER, SELFPAY ==
--- OUTSIDE RECORDS SUMMARY | 2025-03-12 13:36 | XMS_ITS | Encounter Summary ---
Author Organization [facility] [facility] Address [address] [place] [address] Care Team Providers Care Ends Down Checker Name Role Phone Unavailable Primary Care Provider Unavailabl e Encounter Details Date Type Department Care Team (Latest Contact Info) Description 09/02/2020 Abstract [facility] CONVERSIONS Dental, Provider, DDS Social History [...]
--- OUTSIDE RECORDS SUMMARY | 2025-03-12 13:37 | XMS_ITS | Clinical Summary ---
Author Organization [employer] [facility] Address [address] [place] [address] Care Team Providers Care Job Recruiter Name Role Phone Unavailable Primary Care Provider [...] Recently Relevant to Health Maintenance Insurance [facility]
[2025-03-12 13:56] LABS: MANUAL DIFF FLAG NO
[2025-03-12 14:01] LABS: Hematocrit 44.2 % (37.0-47.0); Hemoglobin 15.1 g/dl (12.0-16.0); Imm Gran Abs Auto 0.01 X10*3/uL (0.00-0.03); Imm Gran Pct Auto 0.2 % (0.0-0.4); Lymphocytes Absolute Auto 2.4 X10*3/uL (1.2-4.9); Mean Corpuscular HGB Conc 34.2 g/dl (31.0-35.0); Mean Corpuscular Hemoglobin 28.0 pg (27.0-33.0); Mean Corpuscular Volume 82.0 fL (80.0-98.0); NRBC Abs Auto 0.000 X10*3/uL (0.0-0.012); NRBC Pct Auto 0.0 /100WBC (0.0-0.2); Platelet Count 206 X10*3/uL (160-400); Red Blood Count 5.39 X10*6/uL (4.20-5.50); White Blood Count 4.6 X10*3/uL (4.8-10.8)
[2025-03-12 14:13] LABS: Alanine Aminotransferase 14 U/L (0-31); Albumin Level 4.3 g/dL (3.5-5.0); Alkaline Phosphatase 76 U/L (39-117); Anion Gap 11 (12-20); Aspartate Amino Transferase 40 U/L (5-31); Blood Urea Nitrogen 14 mg/dL (9-16); Calcium 9.9 mg/dL (8.4-10.2); Carbon Dioxide 27 mmol/L (22-29); Chloride 101 mmol/L (96-108); Estimated Glomerular Filt Rate > 60; Potassium 4.5 mmol/L (3.3-5.1); Sodium 134 mmol/L (135-145); Total Protein 8.9 g/dL (6.5-8.0)
== END 2025-03-12 09:47 | disposition home or self-care (01) ==
LOC: HO.HKASLDS 09:46
PROVIDERS: PCP Physician Assistant Medical; Visit Provider Student in an Organized Health Care Education/Training Program
DX: M35.05 Sjogren syndrome with inflammatory arthritis (principal); M85.89 Other specified disorders of bone density and structure, multiple sites; J84.89 Other specified interstitial pulmonary diseases; R31.29 Other microscopic hematuria; Z51.81 Encounter for therapeutic drug level monitoring; Z79.620 Long term (current) use of immunosuppressive biologic; Z79.899 Other long term (current) drug therapy
CPT/HCPCS: 36415; 80053; 85025; 85652; 86140; 99212